=== PATIENT | female | born 1950 | race Caucasian/White ===

== ENCOUNTER → 2017-02-18 | Outpatient (CLI) | payer OTHER ==
[~2017-02-18] MED LIST: AMPH10TA2 PO; AMPH1TAB58 PO; ARIP1TAB14 PO; ASPI81TA28 PO; BUSP30TA2 PO; CEPH500C PO; CLON1TAB3 PO; CYM60 PO; DOCU100C31 PO; DULO-24 PO; INSDGIPEN SC; INSUINJ4 SQ; KLN1X PO; L-ME1CAP PO; LEVO112T4 PO; LIOT5TAB9 PO; LPT10 PO; MELO15TA4 PO; MULT-190 PO; MULT-845 PO; NVLGI/PEN SC; OMEP20CA9 PO; ONDA4TAB10 SL; OXYC-57 PO; OXYC1TAB3 PO; OXYC7.5T65 PO; PHEN-876 PO; RISP-99 PO; TRAZ50TA35 PO; WLLSR100 PO
[2017-02-18 12:34] LABS: URINE APPEARANCE CLOUDY (CLEAR); URINE BILIRUBIN NEG (NEG); URINE COLOR YELLOW; URINE NITRITE NEG (NEG); URINE SPECIFIC GRAVITY 1.017 (1.000-1.030); UROBILINOGEN NEG (NEG)
[2017-02-18 12:35] LABS: MANUAL MICROSCOPIC REQUIRED? NO; REVIEW REQ? YES
[2017-02-18 12:45] LABS: BLOOD UREA NITROGEN 12 mg/dl (7-18); BUN/CREATININE RATIO 11.1 (10-20); CALCIUM 9.1 mg/dl (8.5-10.1); CARBON DIOXIDE 30 mmol/L (21-32); CHLORIDE 109 mmol/L (98-107); GLUCOSE 62 mg/dl (70-99); POTASSIUM 4.3 mmol/L (3.5-5.1); SODIUM 144 mmol/L (136-145)
[2017-02-18 13:11] LABS: CHOLESTEROL 194 mg/dl (0-200); CHOLESTEROL/HDL RATIO 4.5; HDL CHOLESTEROL 43 mg/dl; LDL CHOLESTEROL CALCULATED 130 mg/dl; THYROID STIMULATING HORMONE 0.338 uIu/ml (0.300-4.500); TRIGLYCERIDES 105 mg/dl (0-150); VERY LOW DENSITY LIPOPROT CALC 21 mg/dl
[2017-02-18 13:23] LABS: RATIO 7.9 mcg/mg (0-30.0)
[2017-02-18 13:32] LABS: ESTIMATED AVERAGE GLUCOSE 126 mg/dl; HA1C FLAG Normal (Normal)
--- NOTE | 2017-02-24 13:28 | CODING QUERY MEDICAL NECESSITY ---
CQSUPPORTING DIAGNOSIS NEEDED A supporting diagnosis is required for the test/procedure performed on this patient in order for us to be reimbursed by the patient's insurance. Please provide a supporting diagnosis for the following test/procedure listed below next to the test name along with your signature. *If there is no additional diagnosis for this patient that would support the following test/procedure please document that below next to the test/procedure. Test(s)/Procedure(s) that require a supporting diagnosis: 02/18/17 VITAMIN D TEST Provider Signature: Date: Thank you Tiffany Islas Health Information Management Once completed, please kindly fax back to [phone] For questions please call [phone]
== END | disposition home or self-care (01) ==
LOC: C.LAB1850 10:26
PROVIDERS: ATTEND Nurse Practitioner Family
DX: N39.0 Urinary tract infection, site not specified (principal); E03.9 Hypothyroidism, unspecified; E11.65 Type 2 diabetes mellitus with hyperglycemia; E55.9 Vitamin D deficiency, unspecified

== ENCOUNTER 2017-03-23 18:20 | Emergency (ER) | payer OTHER ==
[~2017-03-23] VITALS: Ht 175.3 cm; Wt 127.9 kg
[~2017-03-23 18:20] MED LIST changes: -AMPH10TA2 PO; -AMPH1TAB58 PO; -ARIP1TAB14 PO; -ASPI81TA28 PO; -CEPH500C PO; -DULO-24 PO; -INSDGIPEN SC; -LPT10 PO; -MELO15TA4 PO; -MULT-190 PO; -ONDA4TAB10 SL; -OXYC-57 PO; -OXYC1TAB3 PO; -OXYC7.5T65 PO; -PHEN-876 PO
[2017-03-23 18:27] VITALS: TEMP 36.9; Ht 175.3 cm; Wt 127.9 kg
[2017-03-23] MEDS ORDERED: ONDANSETRON INJ 2 MG/ML 2 ML VIAL IV STA (18:44)
[2017-03-23] MEDS ORDERED: HYDROmorphone INJ 1 MG/ML SYR IV STA ×2 (18:44→20:20)
--- NOTE | 2017-03-23 18:50 | EMERGENCY ROOM VISIT NOTE ---
ED Visit Note First contact with patient: 18:31 Resident Physician Supervision Note: I was present with Dr. Arceo during the history and exam. I discussed the case with the resident and agree with the findings and plan as documented in the note. Documented By: Anthony Gilmore Problem List Medical Problems: (1) Anal cancer Status: Resolved (2) Anxiety disorder, unspecified Status: Chronic (3) Arthropathy of right knee Status: Resolved (4) Depression Status: Chronic (5) Diabetes mellitus Status: Chronic (6) Dysthymic disorder Status: Chronic (7) Hypothyroidism Status: Chronic (8) IDDM (insulin dependent diabetes mellitus) Status: Chronic (9) Kidney stones Status: Chronic (10) Obesity (BMI 35.0-39.9 without comorbidity) Status: Chronic (11) Renal mass, right Status: Resolved Surgical Problems: (1) H/O: hysterectomy Status: Resolved (2) History of colostomy Status: Resolved Current/Historical Medications Scheduled Bupropion HCl (Bupropion HCl Sr), 100 MG PO BID Buspirone Hcl (Buspirone Hcl), 30 MG PO BID Clonazepam (Clonazepam), 1 MG PO DAILY@1500 Docusate Sodium (Docusate Sodium), 100 MG PO NOON Duloxetine HCl (Duloxetine HCl), 60 MG PO BID Insulin Aspart (Novolog Flexpen), 30 UNITS SC TIDM Insulin Glargine (Lantus Solostar Pen), 30 UNITS SQ HS [id number]-Cyfrt (Deplin 15), 1 CAP PO QAM Levothyroxine Sodium (Levothyroxine Sodium), 112 MCG PO DAILY Liothyronine Sodium (Liothyronine Sodium), 5 MCG PO DAILY Multiple Vitamins W/ Minerals (Centrum Silver Adult 50+), 1 TAB PO HS Omeprazole (Prilosec), 20 MG PO DAILY Scheduled PRN Clonazepam (Klonopin), 1 MG PO DAILY PRN for Anxiety Risperidone (Risperidone), 0.5 MG PO DAILY PRN for Anxiety/Agitation Trazodone Hcl (Trazodone), 25 MG PO HS PRN for Sleep Allergies Coded Allergies: Ciprofloxacin (Verified Adverse Reaction, Unknown, ALTERED MENTAL STATE, AGITATED, 10/19/16) Vital Signs Date Time Temp Pulse Resp B/P Pulse Ox O2 Delivery O2 Flow Rate FiO2 5/16/17 18:27 36.9 85 20 121/74 96 Room Air Departure Information Referrals Pro,Moustapha Murguia M.D. (PCP) Patient Instructions [facility]
[2017-03-23] MEDS ORDERED: SODIUM CHLORIDE 0.9% 1000ML 1,000 ML IV STA (18:54)
[2017-03-23 18:57] LABS: BASO % 1.1 %; BASO ABS # 0.07 K/uL (0-0.2); COMPLETE YES; EOS % 5.2 %; HEMATOCRIT 44.3 % (37-47); IG% 0.2 %; LYMPH % 27.5 %; LYMPH ABS # 1.69 K/uL (1.2-3.4); MEAN CORPUSCULAR HEMOGLOBIN 28.2 pg (25-34); MEAN CORPUSCULAR HGB CONC 33.2 g/dl (32-36); MEAN PLATELET VOLUME 9.5 fL (7.4-10.4); MONO % 9.3 %; NEUT % 56.7 %; PLATELET COUNT 202 K/uL (130-400); RED BLOOD COUNT 5.21 M/uL (4.2-5.4); WHITE BLOOD COUNT 6.14 K/uL (4.8-10.8)
[2017-03-23] MEDS ORDERED: DULO-24 PO (18:57)
[2017-03-23] MEDS ORDERED: ASPI81TA28 PO (18:57)
[2017-03-23] MEDS ORDERED: INSDGIPEN SC (18:57)
[2017-03-23 19:07] LABS: BUN/CREATININE RATIO 14.5 (10-20); CALCIUM 9.2 mg/dl (8.5-10.1); CREATININE 0.88 mg/dl (0.60-1.20); POTASSIUM 4.4 mmol/L (3.5-5.1)
[2017-03-23 19:09] LABS: ALB/GLOB RATIO 1.2 (0.9-2)
--- NOTE | 2017-03-23 19:14 | EMERGENCY ROOM VISIT NOTE ---
History First contact with patient: 18:31 Chief Complaint: ABDOMINAL PAIN Stated Complaint: SEVERE ABD PAIN Nursing Triage Summary: Upper abd pain, severe. Usually takes steroids and Oxicodone, "I can't break the pain cycle. I'm due for more steroid shots, but not until Wednesday". reports chronic issue in abd wall. Associated vomiting and diarrhea History of Present Illness The patient is a 66 year old female who presents to the Emergency Room with complaints of epigastric abdominal pain. The pain is 9/10, sharp, nonradiating, and has been going on for the last 2 years during which time she has been following with pain management. According to the patient she has been treated with steroid injections during this time and her last injection was almost 6 months ago and she is due for a repeat injection next week. She has been treated with oxycodone for the last 2 weeks as an outpatient. She states she has had a full workup during this time and there is no etiology to her pain. This morning she tried to go without pain medication this morning because she was going out with friends, but was in significant pain and tried to take her medication but was "unable to catch up with the pain". At this time she denies fever, chest pain, vomiting, constipation, diarrhea, or burning with urination. She also states that the pain is causing shortness of breath. Review of Systems See HPI for pertinent positives and negatives. A total of ten systems were reviewed and were otherwise negative. Past Medical/Surgical History Medical Problems: (1) Anal cancer (2) Anxiety disorder, unspecified (3) Arthropathy of right knee (4) Constipation (5) Depression (6) Diabetes mellitus (7) Dysthymic disorder (8) Hypothyroidism (9) IDDM (insulin dependent diabetes mellitus) (10) Kidney stones (11) Obesity (BMI 35.0-39.9 without comorbidity) (12) Pain (13) Renal mass, left (14) Renal mass, right Surgical Problems: (1) H/O: hysterectomy (2) History of colostomy Family History No pertinent family history Social History Smoking Status: Former Smoker Alcohol Use: occasionally Drug Use: none Marital Status: Housing Status: lives with significant other Occupation Status: disabled Current/Historical Medications Scheduled Aspirin (Aspirin Ec), 81 MG PO QAM Bupropion HCl (Bupropion HCl Sr), 100 MG PO BID Buspirone Hcl (Buspirone Hcl), 30 MG PO BID Clonazepam (Clonazepam), 1 MG PO DAILY@1500 Docusate Sodium (Docusate Sodium), 100 MG PO NOON Duloxetine HCl (Cymbalta), 20 MG PO TID Insulin Aspart (Novolog Flexpen), 30-50 UNITS SC TIDM Insulin Glargine (Lantus Solostar), 6 UNITS SC HS Levothyroxine Sodium (Levothyroxine Sodium), 112 MCG PO DAILY Liothyronine Sodium (Liothyronine Sodium), 5 MCG PO DAILY Multiple Vitamins W/ Minerals (Centrum Silver Adult 50+), 1 TAB PO HS Omeprazole (Prilosec), 20 MG PO DAILY Scheduled PRN Clonazepam (Klonopin), 1 MG PO DAILY PRN for Anxiety Risperidone (Risperidone), 0.5 MG PO DAILY PRN for Anxiety/Agitation Trazodone Hcl (Trazodone), 25 MG PO HS PRN for Sleep Allergies Coded Allergies: Ciprofloxacin (Verified Adverse Reaction, Unknown, ALTERED MENTAL STATE, AGITATED, 10/19/16) Physical Exam Vital Signs Date Time Temp Pulse Resp B/P Pulse Ox O2 Delivery O2 Flow Rate FiO2 03/23/17 18:27 36.9 85 20 121/74 96 Room Air Physical Exam GENERAL: Awake, alert, well-appearing, in no distress HENT: Normocephalic, atraumatic. Oropharynx unremarkable. EYES: Normal conjunctiva. Sclera non-icteric. NECK: Supple. Trachea midline. RESPIRATORY: Clear to auscultation. Good inspiratory effort CARDIAC: Regular rate, normal rhythm. Extremities warm and well perfused. Pulses equal. ABDOMEN: Soft, non-distended. No rebound or guarding. No masses. Mild epigastric tenderness RECTAL: Deferred. MUSCULOSKELETAL: Chest examination reveals no tenderness. The back is symmetrical on inspection without obvious abnormality. There is no CVA tenderness to palpation. No joint edema. LOWER EXTREMITIES: Calves are equal size bilaterally and non-tender. No edema. No discoloration. NEURO: Normal sensorium. No sensory or motor deficits noted. SKIN: No rash or jaundice noted. Medical Decision & Procedures Laboratory Results 03/23/17 18:39 Red Blood Count 5.21, Mean Corpuscular Volume 85.0, Mean Corpuscular Hemoglobin 28.2, Mean Corpuscular Hemoglobin Concent 33.2, Mean Platelet Volume 9.5, Neutrophils (%) (Auto) 56.7, Lymphocytes (%) (Auto) 27.5, Monocytes (%) (Auto) 9.3, Eosinophils (%) (Auto) 5.2, Basophils (%) (Auto) 1.1, Neutrophils # (Auto) 3.48, Lymphocytes # (Auto) 1.69, Monocytes # (Auto) 0.57, Eosinophils # (Auto) 0.32, Basophils # (Auto) 0.07 03/23/17 18:39 Test 03/23/17 18:39 03/23/17 19:57 White Blood Count 6.14 K/uL (4.8-10.8) Red Blood Count 5.21 M/uL (4.2-5.4) Hemoglobin 14.7 g/dL (12.0-16.0) Hematocrit 44.3 % (37-47) Mean Corpuscular Volume 85.0 fL (80-100) Mean Corpuscular Hemoglobin 28.2 pg (25-34) Mean Corpuscular Hemoglobin Concent 33.2 g/dl (32-36) Platelet Count 202 K/uL (130-400) Mean Platelet Volume 9.5 fL (7.4-10.4) Neutrophils (%) (Auto) 56.7 % Lymphocytes (%) (Auto) 27.5 % Monocytes (%) (Auto) 9.3 % Eosinophils (%) (Auto) 5.2 % Basophils (%) (Auto) 1.1 % Neutrophils # (Auto) 3.48 K/uL (1.4-6.5) Lymphocytes # (Auto) 1.69 K/uL (1.2-3.4) Monocytes # (Auto) 0.57 K/uL (0.11-0.59) Eosinophils # (Auto) 0.32 K/uL (0-0.5) Basophils # (Auto) 0.07 K/uL (0-0.2) RDW Standard Deviation 42.6 fL (36.4-46.3) RDW Coefficient of Variation 14.0 % (11.5-14.5) Immature Granulocyte % (Auto) 0.2 % Immature Granulocyte # (Auto) 0.01 K/uL (0.00-0.02) Anion Gap 5.0 mmol/L (3-11) Est Creatinine Clear Calc Drug Dose 91.5 ml/min Estimated GFR () 79.9 Estimated GFR (Non- 68.9 BUN/Creatinine Ratio 14.5 (10-20) Calcium Level 9.2 mg/dl (8.5-10.1) Total Bilirubin 0.4 mg/dl (0.2-1) Aspartate Amino Transf (AST/SGOT) 38 U/L (15-37) Alanine Aminotransferase (ALT/SGPT) 61 U/L (12-78) Alkaline Phosphatase 92 U/L (45-117) Total Protein 7.1 gm/dl (6.4-8.2) Albumin 3.9 gm/dl (3.4-5.0) Globulin 3.2 gm/dl (2.5-4.0) Albumin/Globulin Ratio 1.2 (0.9-2) Lipase 125 U/L (73-393) Urine Color YELLOW Urine Appearance CLEAR (CLEAR) Urine pH 6.0 (4.5-7.5) Urine Specific [place] 1.017 (1.000-1.030) Urine Protein NEG (NEG) Urine Glucose (UA) NEG (NEG) Urine Ketones NEG (NEG) Urine Occult Blood 1+ (NEG) Urine Nitrite NEG (NEG) Urine Bilirubin NEG (NEG) Urine Urobilinogen NEG (NEG) Urine Leukocyte Esterase SMALL (NEG) Urine WBC (Auto) 5-10 /hpf (0-5) Urine RBC (Auto) 5-10 /hpf (0-4) Urine Hyaline Casts (Auto) 1-5 /lpf (0-5) Urine Epithelial Cells (Auto) >30 /lpf (0-5) Urine Bacteria (Auto) NEG (NEG) Medications Administered Medications (Trade) Dose Ordered Sig/Chong Route Start Time Stop Time Status Last Admin Dose Admin Ondansetron HCl (Zofran Inj) 4 mg NOW STAT IV 03/23/17 18:44 03/23/17 18:49 DC 03/23/17 18:58 4 MG Hydromorphone HCl 1 mg 1 mg NOW STAT IV 03/23/17 18:44 17 18:49 DC 03/23/17 18:58 1 MG Sodium Chloride (Nss 1000ml) 1,000 ml @ 999 mls/hr Q1H1M STAT IV 03/23/17 18:54 03/23/17 19:54 DC 03/23/17 18:54 999 MLS/HR Magnesium Citrate (Citrate Of Magnesia Soln) 296 ml ONE PRN PO 03/23/17 20:30 04/22/17 20:29 03/23/17 20:31 296 ML Hydromorphone HCl 1 mg 1 mg NOW STAT IV 03/23/17 20:20 03/23/17 20:24 DC 03/23/17 20:30 1 MG Promethazine HCl/ Sodium Chloride (Phenergan Inj/ Nss 50ml) 51 ml @ 204 mls/hr NOW STAT IV 03/23/17 20:20 03/23/17 20:34 DC 03/23/17 20:31 204 MLS/HR Medical Decision Patient is a 66 year old female with chronic epigastric pain that is unable to be controlled with her current home medications Etiologies such as appendicitis, diverticulitis, obstruction, inflammatory bowel disease, renal colic, PUD, biliary pathology, pancreatitis, mesenteric ischemia, aortic pathology, infections, genitourinary, UTI, perforated viscus, as well as others were entertained. Studies: - Abdominal Series - CBC - CMP - Lipase Medications: - Zofran 4mg IV - Dilaudid 1mg IV - Lab results show no acute abnormalities - Abdominal X-Ray shows no acute pathology but a moderate amount of stool - Patient still complaining of pain so given 1mg IV Dilaudid + 25mg IV Phenergan - After additional dose of pain medication patient states her pain is improved - Patient given magnesium citrate on discharge with instruction for taking it at home Impression Primary Impression: Abdominal pain Additional Impressions: Chronic pain disorder Constipation due to opioid therapy Departure Information Dispostion Home / Self-Care Condition GOOD Referrals Pro,Moustapha Murguia M.D. (PCP) Patient Instructions [facility] Problem Qualifiers Primary Impression: Abdominal pain Abdominal location: epigastric Qualified Codes: R10.13 - Epigastric pain
--- NOTE | 2017-03-23 19:49 | DIAGNOSTIC IMAGING REPORT ---
ABDOMEN 2VIEW W/PA CHEST RTN CLINICAL HISTORY: Upper abdominal pain. COMPARISON STUDY: Chest x-ray dated April 09, 2016, abdominal series dated 03/28/2016 FINDINGS: The erect chest reveals no free air. There is no focal pulmonary consolidation. Erect and supine views the abdomen reveal moderate stool within the colon. There are no transition zones indicate bowel obstruction. There is a 9 mm calcification within the left midabdomen suspicious for a left renal calculus. IMPRESSION: 1. No evidence of bowel obstruction. No evidence of free air 2. Left-sided nephrolithiasis 3. Moderate amount of stool within the colon Electronically signed by: Joni Briones M.D. 03/23/2017 7:48 PM Dictated Date/Time: 03/23/2017 7:46 PM
[2017-03-23] MEDS ORDERED: PROMETHAZINE HCL INJ 25 MG in SODIUM CHLORIDE 0.9% 50ML 50 ML IV STA (20:20)
[2017-03-23 20:22] LABS: URINE APPEARANCE CLEAR (CLEAR); URINE BILIRUBIN NEG (NEG); URINE COLOR YELLOW; URINE EPITHELIAL CELL AUTO >30 /lpf (0-5); URINE NITRITE NEG (NEG); URINE SPECIFIC GRAVITY 1.017 (1.000-1.030); UROBILINOGEN NEG (NEG)
[2017-03-23 20:28] LABS: MANUAL MICROSCOPIC REQUIRED? NO; REVIEW REQ? NO
[2017-03-23] MEDS ORDERED: MAGNESIUM CITRATE 296 ML/BTL PO PRN (20:30)
[2017-03-23 21:45] VITALS: BP 118/69; PULSE 80; O2SAT 95
[2017-10-04] MEDS ORDERED: OXYC-57 PO (08:44)
[2017-10-05] MEDS ORDERED: CEPH500C PO (10:48)
[2017-10-05] MEDS ORDERED: PHEN-876 PO (10:48)
[2017-10-05] MEDS ORDERED: OXYC7.5T65 PO (10:48)
== END 2017-03-23 21:46 | disposition home or self-care (01) ==
LOC: C.EDB 18:21 → C.EDA 21:46
DX: R10.9 Unspecified abdominal pain (principal); G89.29 Other chronic pain; K59.03 Drug induced constipation; E11.9 Type 2 diabetes mellitus without complications; E03.9 Hypothyroidism, unspecified; F41.9 Anxiety disorder, unspecified; F32.9 Major depressive disorder, single episode, unspecified; M12.861 Other specific arthropathies, not elsewhere classified, right knee; Z85.048 Personal history of other malignant neoplasm of rectum, rectosigmoid junction, and anus; Z90.710 Acquired absence of both cervix and uterus; Z93.3 Colostomy status; Z87.891 Personal history of nicotine dependence; Z79.4 Long term (current) use of insulin; Z79.82 Long term (current) use of aspirin; Z79.899 Other long term (current) drug therapy; Z88.2 Allergy status to sulfonamides

== ENCOUNTER → 2017-05-28 | Outpatient (CLI) | payer OTHER ==
[~2017-05-28] MED LIST changes: +ASPI81TA28 PO; -CYM60 PO; +DULO-24 PO; +INSDGIPEN SC; -INSUINJ4 SQ; -L-ME1CAP PO
--- NOTE | 2017-05-28 13:30 | DIAGNOSTIC IMAGING REPORT ---
LEFT HIP UNILATERAL 2 VIEWS HISTORY: 67 years-old Female M25.552 acute left hip pain without known injury. COMPARISON: CT abdomen and pelvis 12/16/2015 TECHNIQUE: 2 views of the left hip FINDINGS: Moderate degenerative changes of the left femoral acetabular joint are noted. There is a subcentimeter bone island of the left femoral head medially. There is no acute fracture or dislocation. The imaged left hemipelvis is intact. There is no radiopaque foreign body. IMPRESSION: 1. No acute fracture or dislocation. 2. 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 The above report was generated using voice recognition software. It may contain grammatical, syntax or spelling errors. Electronically signed by: Sal Fernandez M.D. 05/28/2017 1:29 PM Dictated Date/Time: 05/28/2017 1:26 PM
== END | disposition home or self-care (01) ==
LOC: C.RAD1850 12:07
PROVIDERS: ATTEND Physician Assistant
DX: M25.552 Pain in left hip (principal); M17.32 Unilateral post-traumatic osteoarthritis, left knee

== ENCOUNTER → 2017-08-20 | Outpatient (CLI) | payer OTHER ==
[2017-08-20 12:13] LABS: BASO % 0.8 %; BASO ABS # 0.04 K/uL (0-0.2); COMPLETE YES; EOS % 5.1 %; HEMATOCRIT 43.3 % (37-47); IG% 0.2 %; LYMPH % 21.2 %; LYMPH ABS # 1.13 K/uL (1.2-3.4); MEAN CELL VOLUME 86.4 fL (80-100); MEAN CORPUSCULAR HEMOGLOBIN 27.9 pg (25-34); MEAN CORPUSCULAR HGB CONC 32.3 g/dl (32-36); MEAN PLATELET VOLUME 9.8 fL (7.4-10.4); MONO % 6.6 %; NEUT % 66.1 %; PLATELET COUNT 218 K/uL (130-400); RED BLOOD COUNT 5.01 M/uL (4.2-5.4); WHITE BLOOD COUNT 5.32 K/uL (4.8-10.8)
[2017-08-20 12:29] LABS: ESTIMATED AVERAGE GLUCOSE 146 mg/dl; HA1C FLAG Normal (Normal)
[2017-08-20 13:39] LABS: BLOOD UREA NITROGEN 12 mg/dl (7-18); BUN/CREATININE RATIO 13.4 (10-20); CALCIUM 9.1 mg/dl (8.5-10.1); CARBON DIOXIDE 26 mmol/L (21-32); CHLORIDE 106 mmol/L (98-107); CHOLESTEROL 179 mg/dl (0-200); CREATININE 0.91 mg/dl (0.60-1.20); GLUCOSE 162 mg/dl (70-99); POTASSIUM 4.3 mmol/L (3.5-5.1); SODIUM 139 mmol/L (136-145); TRIGLYCERIDES 155 mg/dl (0-150); VERY LOW DENSITY LIPOPROT CALC 31 mg/dl
[2017-08-20 13:49] LABS: FERRITIN 41.9 ng/ml (8.0-388.0)
[2017-08-20 13:50] LABS: CHOLESTEROL/HDL RATIO 5.3; HDL CHOLESTEROL 34 mg/dl; LDL CHOLESTEROL CALCULATED 114 mg/dl
== END | disposition home or self-care (01) ==
LOC: C.LAB1850 11:02
PROVIDERS: ATTEND Internal Medicine
DX: E55.9 Vitamin D deficiency, unspecified (principal); E11.65 Type 2 diabetes mellitus with hyperglycemia; E03.9 Hypothyroidism, unspecified; D50.9 Iron deficiency anemia, unspecified

== ENCOUNTER → 2017-08-25 | Outpatient (CLI) | payer OTHER ==
--- NOTE | 2017-08-26 06:02 | PAP/PSG TECHNICIAN REPORT ---
[facility] Applications Scientist Polysomnogram Report Study name: None Report date: 08/26/2017 Study date: 08/25/2017 Referring Physician: DR. CLAUDIA ANTON Name: NYLA LUNSFORD Interpreting Physician: Eamon Viramontes M.D. Date of : 1950 Applications Scientist: TANYA Harman. Sex: Female Age: 67 Study Type: PSG PAP Weight: 295 lbs Height: 67 years, Height 5' 8" BMI: 44.85 Medications: RISPERDAL 0.25 MG, OMEPRAZOLE 20 MG, CYMBALTA 60 MG, DOCUSATE SODIUM 100 MG, BUPROPION 100 MG, BUSPIRONE 30 MG, CLONAZEPAM 1 MG, DEPLIN, KLONOPIN 1 MG, ATORVASTATIN 10 MG, LANTUS SOLOSTAR, NOVOLOG FLEXPEN, MELOXICAM 15 MG, LEVOTHYROXINE 112 MCG, LIOTHYRONINE 5 MCG, ARIPIPRAZOLE 5 MG, ASPIRIN 81 MG, CENTRUM SILVER, TRAZODONE 50 MG, TYLENOL Patient History 67. yr-old female here for a CPAP update study. She is currently on a pressure of 13 CMH2O. She wears CPAP every night but is having some leaking issues from her mask that wakes her often. She wears an AirFit F10 full face mask size small. She is back to assess her pressure settings and mask fit. Her [place] scale is 12. The test was started on room air and 4 CMH2O. ETCO2 testing was not utilized during this study. Room 1 Parameters Monitored NPSG: E1-M2, E2-M1, Fp1-M2, Fp2-M1, F3-M2, F4-M2, F4-M1, C3-M2, C4-M2, C4-M1, O1-M2, O2-M2, O2-M1, T3-M2, T4-M1, P3-M2, P4-M1, CHIN1, CHIN2, HR, EKG, Legs, PFLOW, SNOR, FLOW, CFLOW, Tidal Volume, THOR, ABDO, SpO2, PLTH, CPRESS, ETCO2 Wave, ETCO2, pH Sleep Architecture Sleep Stages Time at Lights Off 9:29:28 PM STAGES Time (min.) TST (%) Time at Lights On 5:30:28 AM Wake 13.5 -- Total Recording Time (TRT) 481.00 min. N1 14.5 3 Total Sleep Period (TSP) 475.0 min. N2 382.5 82 Total Sleep Time (TST) 467.5min. N3 4.5 1 Awake Time 13.5 min. REM 66.0 14 Wake after Sleep Onset 7.5 min. Sleep Efficiency (SE) 97 % Sleep Onset Latency (LUCIA) 6.0 min. Number of Stage 1 Shifts None Awakenings 6 Stage Changes 64 Number of REM periods 2 REM 66.0 14 REM Latency 388.5 min. NREM 401.5 86 Body Position Analysis Supine Right Left Side Prone Vertical Total Sleep Time (min.) 322.7 0.0 146.5 146.47 0.0 0.0 Total Sleep Time (%) 69% 0% 31% 31 0% N/A% Total Sleep Time REM (min.) 66.0 0.0 0.0 None 0.0 0.0 Total Sleep Time NREM (min.) 255.0 0.0 146.5 None 0.0 0.0 Intermittent Wake (min.) 1.6 5.4 6.5 None 0.0 0.0 Total Sleep Period (%) 68% None None None None None Arousals Myoclonus (PLM) * Events Count Index Events Count Index Spontaneous 39 5 Events Awake (PLMW) 12 53.3 Respiratory 11 1.5 Events Asleep w/ Arousal (PLMA) 8 1.0 PLM 8 1 Events Asleep w/o Arousal (PLMS) 98 12.6 Snoring 12 2 Total Asleep 106 13.6 Total 69 9 Total 118 15 Respiratory Analysis * CA OA MA CH H RERA Total Count 8 1 0 0 18 7 27 Index 1.0 0.1 0.0 0 2.3 1 4.4 Mean Duration 12.4 14.2 0.0 0.00 17.8 16.7 16.2 Longest Duration 15.7 14.2 0.0 0.00 0.0 19.2 31.6 Respiratory Event Summary Total Supine ~Supine Right Left Prone REM NREM Apneas Count 9 5 4 N/A 4 N/A 0 9 Index 1.2 1 2 N/A 1.6 N/A 0 1 Hypopneas (4% Desat) Count 18 16 2 N/A 2 N/A 4 14 Index 2.3 3.0 1 N/A 0.8 N/A 3.6 2.1 Apneas & All Hypopneas Count 27 21 6 N/A 6 N/A 4 23 Index 3.5 4 2 N/A 2 N/A 3.6 3.4 Respiratory Events (Stain Maker+All Hyp+RERA) Count 27 26 8 N/A 8 N/A 4 23 Index 4.4 5 3 N/A 3.3 N/A 3.6 4.5 Respiratory Related Arousal Count 11 26 3 N/A 3 N/A 0 12 Index 1.5 2 1 N/A 1 N/A 0 2 Snoring Analysis Supine Right Left Prone REM NREM Total Snore duration 31.2 min Snores count 1,140 N/A 304 N/A 167 1,277 1,444 Snore mean duration 1.3 Sec Snores index 213 N/A 125 N/A 151.8 190.8 185.3 TST with snoring (%) 6.7% Desaturation Event Summary: Minimum %SpO2 Event Count Mean/Min/Max Duration(sec.) Desaturation Index % Time In Bed > 90 40 13.2 / 4.5 / 38.3 11.0 45.4 86 - 90 20 14.4 / 5.8 / 55.5 4.6 54.4 81 - 85 0 N/A 0.0 0.2 76 - 80 0 N/A 0.0 0.1 71 - 75 0 N/A 0.0 0.0 66 - 70 0 N/A 0.0 0.0 61 - 65 0 N/A 0.0 0.0 56 - 60 0 N/A 0.0 0.0 51 - 55 0 N/A 0.0 0.0 < 50 0 N/A 0.0 0.0 Total REM NREM Awake <50% 0.0 min. 0.0 min. 0.0 min. 0.0 min. 51 - 60% 0.0 min. 0.0 min. 0.0 min. 0.0 min. 61 - 70% 0.0 min. 0.0 min. 0.0 min. 0.0 min. 71 - 80% 0.2 min. 0.2 min. 0.0 min. 0.0 min. 81 - 90% 262.0 min. 63.5 min. 192.3 min. 6.2 min. 91 - 100% 217.9 min. 2.2 min. 209.0 min. 6.7 min. Average 90 89 91 91 Minimum SpO2 76 76 85 87 Desaturation Event Index 5.9 8.2 5.2 17.8 # Desat. Events below 89% 27 9 17 1 Time(%) with Saturation below 89% 7.6 5.5 1.9 0.2 Time(min.) with Saturation below 89% 36.3 26.2 9.1 1.0 Time (mins) REM (mins) NREM (mins) % of TST SpO2 Below 90% 43 9 N34 23.5 SpO2 Below 88% 6 0 0 2 Heart Rate Analysis Min (bpm) Max (bpm) Average (bpm) Awake 71 100 84 NREM 69 96 82 REM 73 91 81 Overall 69 96 82 Supplemental O2 Values Minimum O2 level: None Value Start Time End Time Applications Scientist Comments Ms. Lunsford slept in the right, left, and supine positions. No cardiac arrhythmias were noted. PLMs were noted. No bruxism noted. CPAP was initiated at +4 CMH2O and up-titrated to a level of +10 CMH2O, Cflex 2. An AirFit F10 full face mask size small from [employer] was used during titration She awoke to use the restroom one time during the night. Ms. Lunsford stated that she slept better than she thought she would have. The final report will be interpreted and signed by a sleep physician. The completed physician report will then be placed in the patient medical record. Therapy Event: Therapy (cm H20) 4 5 6 8 9 10 Total Time at Pressure (min.) 28.9 26.5 96.4 100.5 171.8 56.9 TST at Pressure (min.) 22.9 26.5 96.4 99.5 165.3 56.9 # Periods 1 1 1 1 1 1 Sleep Onset (min.) 6.0 0.0 0.0 0.0 0.0 0.0 REM Onset (min.) N/A N/A N/A N/A 142.2 0.0 Sleep Efficiency % 79 100 100 99 96 100 Wakefulness (%) 20.8 0.0 0.0 1.0 3.8 0.0 Wakefulness (min.) 6.0 0.0 0.0 1.0 6.5 0.0 NREM 1 (%) 12.1 0.0 1.0 1.5 4.9 0.0 NREM 1 (min.) 3.5 0.0 1.0 1.5 8.5 0.0 NREM 2 (%) 67.1 98.1 96.9 95.5 74.3 35.1 NREM 2 (min.) 19.4 26.0 93.4 96.0 127.7 20.0 NREM 3 (%) 0.0 1.9 2.1 2.0 0.0 0.0 NREM 3 (min.) 0.0 0.5 2.0 2.0 0.0 0.0 REM (%) 0.0 0.0 0.0 0.0 16.9 64.9 REM (min.) 0.0 0.0 0.0 0.0 29.1 36.9 # Arousals 5 1 19 15 28 1 Arousal Index 13.1 2.3 11.8 9.0 10.2 1.1 # Snore 35 82 448 323 435 121 Snore Index 91.8 185.4 278.9 194.8 157.9 127.6 AHI 2.6 4.5 5.6 4.8 2.2 1.1 AHI Supine 2.6 4.5 4.7 5.3 4.0 1.1 AHI Non-Supine N/A N/A 7.5 0.0 1.1 N/A NREM AHI 2.6 4.5 5.6 4.8 0.9 3.0 REM AHI N/A N/A N/A N/A 8.3 0.0 RDI 2.6 6.8 8.1 6.0 2.2 1.1 # Obstructive 0 0 0 1 0 0 # Central Ap 0 1 4 1 1 1 # Mixed 0 0 0 0 0 0 # Hypopneas 1 1 5 6 5 0 RERAS 0 1 4 2 0 0 Total Respiratory Events 1 3 13 10 6 1 Time Below SpO2 89.00% (min.) 2.0 0.7 2.4 2.2 16.5 11.5 Mean NREM SpO2 (%) 90 90 91 91 91 90 Mean REM SpO2 (%) N/A N/A N/A N/A 88 89 Mean Sleep SpO2 (%) 90 90 91 91 90 89 Min NREM SpO2 (%) 88 87 88 85 86 87 Min REM SpO2 (%) N/A N/A N/A N/A 76 87 Position Supine (min.) 22.9 26.5 64.3 91.0 59.4 56.9 Position Non-supine (min.) 0.0 0.0 32.1 8.5 105.9 0.0 LM Index Sleep 21.0 15.8 15.6 12.7 14.5 5.3 LM Index NREM 21.0 15.8 15.6 12.7 14.1 0.0 LM Index REM N/A N/A N/A N/A 16.5 8.1 Mean Heart Rate (bpm) 88 86 84 82 81 82 Min Heart Rate (bpm) 80 76 69 70 70 73 CPAP REPORT Therapy Detail Time / Page # Comment CPAP 4 cm H2O Full Face Mask Flex Pressure Relief Humidifier on 9:27:41 PM / pg. 156 CPAP 5 cm H2O Full Face Mask Flex Pressure Relief Humidifier on 9:58:21 PM / pg. 217 INCREASED FOR SOME SNORING CPAP 6 cm H2O Full Face Mask Flex Pressure Relief Humidifier on 10:24:53 PM / pg. 270 INCREASED FOR AUDIBLE SNORING CPAP 8 cm H2O Full Face Mask Flex Pressure Relief Humidifier on 12:01:15 AM / pg. 463 INCREASED FOR RERAS AND SOME HYPOPNEAS AND SNORE AROUSALS CPAP 9 cm H2O Full Face Mask Flex Pressure Relief Humidifier on 1:41:44 AM / pg. 664 INCREASED FOR RERAS AND HYPOPNEAS CPAP 10 cm H2O Full Face Mask Flex Pressure Relief Humidifier on 4:33:33 AM / pg. 1008 INCREASED FOR HYPOPNEAS IN REM
--- NOTE | 2017-08-27 15:01 | POLYSOMNOGRAPH REPORT ---
CLINICAL DATA: A 67-year-old female with BMI of 48.[address] Moustapha Dey for a CPAP study. She is currently wearing 13 cm water pressure. She uses it every night but has issues with mask leakage. She wears AirFit F10 full facemask size small. She is back to assess her pressure settings and mask fit. Her Leona sleepiness score is 12/24. SLEEP ARCHITECTURE: Total sleep period was 475 minutes. Total sleep time was 467.5 minutes, divided between 401.5 minutes of non-REM sleep and 66 minutes of REM sleep. Sleep onset latency was 6 minutes. REM latency was delayed at 388.5 minutes. Sleep efficiency was 97%. Wake after sleep onset was 7.5 minutes. Sleep consisted of stage N1 3%, stage N2 82%, stage N3 1%, and REM 14%. AROUSAL DATA: A 69 arousals were recorded for an index of 9 per hour. PLM DATA: A 106 limb movements during sleep were noted for an index of 13.6 per hour with an arousal index of 1 per hour. RESPIRATORY DATA: The AHI was 3.5. There were 8 central, 1 obstructive apneic episode. The longest duration of apnea was 15.7 seconds. There were 18 hypopneic episodes. The mean duration of hypopnea was 17.8 seconds. OXIMETRY DATA: Nocturnal hypoxemia was seen. Oxygen kristi was 76% during REM. The mean saturation was 90%. Time below 88% was 6 minutes. EKG: Heart rates ranged from 69-96 beats per minute. No arrhythmias were noted. VP'S COMMENTS AND TREATMENT SUMMARY: The patient slept in the right, left, and supine positions. She used an AirFit F10 full facemask size small from [employer]. She was titrated up to 10 cm water pressure, C-Flex setting #2. At her final pressure setting, patient slept for 57 minutes with an AHI of 1. IMPRESSION: Obstructive sleep apnea corrected with CPAP 10 cm water C-flex setting #2 with the above noted interface. RECOMMENDATIONS: The patient's CPAP can be lowered to 10 cm water pressure at C-Flex setting #2.
== END | disposition home or self-care (01) ==
LOC: C.NEUR 20:00
PROVIDERS: ATTEND Internal Medicine
DX: G47.33 Obstructive sleep apnea (adult) (pediatric) (principal); R06.83 Snoring

== ENCOUNTER → 2017-09-21 | Outpatient (CLI) | payer OTHER ==
[~2017-09-21] MED LIST changes: +ARIP1TAB14 PO; +LPT10 PO; +MELO15TA4 PO; +MULT-190 PO; +OXYC-57 PO
== END | disposition home or self-care (01) ==
LOC: C.LABSPEC 17:02
PROVIDERS: ATTEND Podiatrist Foot & Ankle Surgery
DX: L60.0 Ingrowing nail (principal)

== ENCOUNTER 2017-09-24 12:17 | Emergency (ER) | payer OTHER ==
[~2017-09-24] VITALS: Ht 174 cm; Wt 133.6 kg
[~2017-09-24 12:17] MED LIST changes: -ARIP1TAB14 PO; -LPT10 PO; -MELO15TA4 PO; -MULT-190 PO; -OXYC-57 PO
[2017-09-24 12:21] VITALS: Ht 174 cm; Wt 133.6 kg
[2017-09-24] MEDS ORDERED: ONDANSETRON INJ 2 MG/ML 2 ML VIAL ONE (12:39)
[2017-09-24] MEDS ORDERED: ONDANSETRON INJ 2 MG/ML 2 ML VIAL IV STA (12:45)
[2017-09-24] MEDS ORDERED: MoRPHine SULFATE 10 MG/ML CARP/VIAL IV STA ×2 (12:45→13:57)
[2017-09-24] MEDS ORDERED: SODIUM CHLORIDE 0.9% 1000ML 1,000 ML IV STA (12:45)
[2017-09-24] MEDS ORDERED: MoRPHine SULFATE 10 MG/ML CARP/VIAL ONE (12:46)
[2017-09-24] MEDS ORDERED: MELO15TA4 PO (12:57)
[2017-09-24] MEDS ORDERED: LPT10 PO (12:57)
[2017-09-24] MEDS ORDERED: ARIP1TAB14 PO (12:57)
[2017-09-24] MEDS ORDERED: MULT-190 PO (12:58)
[2017-09-24 13:20] LABS: BASO % 0.8 %; BASO ABS # 0.05 K/uL (0-0.2); COMPLETE YES; EOS % 4.7 %; IG% 0.3 %; LYMPH % 21.2 %; LYMPH ABS # 1.41 K/uL (1.2-3.4); MEAN CELL VOLUME 86.7 fL (80-100); MEAN CORPUSCULAR HEMOGLOBIN 28.3 pg (25-34); MEAN CORPUSCULAR HGB CONC 32.7 g/dl (32-36); MEAN PLATELET VOLUME 9.6 fL (7.4-10.4); MONO % 9.6 %; NEUT % 63.4 %; PLATELET COUNT 224 K/uL (130-400); RED BLOOD COUNT 4.73 M/uL (4.2-5.4); WHITE BLOOD COUNT 6.64 K/uL (4.8-10.8)
--- NOTE | 2017-09-24 13:28 | DIAGNOSTIC IMAGING REPORT ---
ABD/PELVIS WITHOUT FOR STONE HISTORY: 67 years-old Female EVALUATE FLANK PAIN/HEMATURIA acute left-sided flank pain COMPARISON: CT 12/26/2015 and 02/24/2010 TECHNIQUE: Multiple axial CT images of the abdomen and pelvis were obtained without contrast. A dose lowering technique was used consistent with the principals of SAL. FINDINGS: Mild subsegmental patchy bibasilar groundglass opacities suggest atelectasis. No pneumoperitoneum or pneumatosis. Imaged inferior cardiac chambers are unremarkable. Hepatomegaly with hepatic steatosis. The spleen, gallbladder, pancreas and adrenal glands are unremarkable. 4 mm nonobstructing calculus of the inferior pole right kidney is noted. No right-sided ureteral calculi or obstructive uropathy. There are several calculi in the inferior pole left kidney, largest of which measures up to 1.6 cm in length. Cortical scarring of the superior pole left kidney is noted with areas of macroscopic fat in her purse between areas of linear suture material with decreased soft tissue stranding within this distribution compared to prior study suggesting expected post operative changes. No suspicious mass lesions seen within the left kidney on this noncontrast study. No left-sided ureteral calculi or obstruction uropathy. Urinary bladder is unremarkable. Lobular contour of the uterus is again seen suggesting fibroids. Nonspecific cystic structure within the region of the right adnexum measures 9 mm which has not significantly changed from comparison study. Aorta is normal in course and caliber. No bulky adenopathy. Scattered nonspecific mildly prominent lymph nodes are seen within the right lower quadrant mesentery measuring up to 6 mm in short axis. There is no bowel obstruction or focal bowel wall thickening. Scattered colonic diverticulosis without diverticulitis. The appendix is not definitively seen. No secondary signs of acute appendicitis. Soft tissues are unremarkable. Probable bone islands of the left femur. IMPRESSION: 1. Bilateral nephrolithiasis without ureteral calculi or obstructive uropathy. 2. Postoperative changes of the superior pole left kidney. 3. Appendix not definitively visualized. No secondary signs to suggest acute appendicitis. 4. Hepatomegaly with hepatic steatosis. 5. Probable fibroid uterus. 6. Additional findings as above. The above report was generated using voice recognition software. It may contain grammatical, syntax or spelling errors. Electronically signed by: Sal Fernandez M.D. 09/24/2017 1:27 PM Dictated Date/Time: 09/24/2017 1:16 PM
[2017-09-24 13:49] LABS: ALT/SGPT 60 U/L (12-78); BLOOD UREA NITROGEN 19 mg/dl (7-18); CALCIUM 9.2 mg/dl (8.5-10.1); CARBON DIOXIDE 23 mmol/L (21-32); CHLORIDE 107 mmol/L (98-107); CREATININE 1.02 mg/dl (0.60-1.20); GLUCOSE 87 mg/dl (70-99); SODIUM 138 mmol/L (136-145)
[2017-09-24 13:50] LABS: ALKALINE PHOSPHATASE 117 U/L (45-117)
[2017-09-24 14:16] LABS: MANUAL MICROSCOPIC REQUIRED? NO; REVIEW REQ? NO; URINE APPEARANCE CLEAR (CLEAR); URINE BILIRUBIN NEG (NEG); URINE COLOR YELLOW; URINE NITRITE NEG (NEG); URINE SPECIFIC GRAVITY 1.008 (1.000-1.030); UROBILINOGEN NEG (NEG)
[2017-09-24] MEDS ORDERED: OXYC-57 PO (14:40)
[2017-09-24 15:01] VITALS: BP 124/69; PULSE 81; TEMP 36.3; O2SAT 91
--- NOTE | 2017-09-24 20:24 | EMERGENCY ROOM VISIT NOTE ---
ED Visit Note First contact with patient: 12:35 Chief Complaint: I'm having left flank pain. History of Present Illness: Ms. Lunsford is a 67-year-old white female who ambulates into the ED accompanied by male friend complaining of left flank pain. Historically patient reports she has a history of nephrolithiasis. Previously she needed surgical intervention in the form of lips atrip see an basket removal. Patient reports an acute onset of left flank pain that started approximately 3- 4 hours ago. Since that time her pain has been constant but slightly waxing and waning intensity. She describes her pain as a cramping and sharp sensation. She rates her discomfort 8/10. She reports she has minimal radiation of her pain from the flank around the abdomen. She has not identified any aggravating or alleviating factors related to the pain. She has not taken any medications for pain prior to arrival at the hospital. Associated with her pain she reports she's been nauseated but has not vomited. Additionally she reports this feels exactly like her previous kidney stones. She denies fevers, chills, sweats, skin eruptions, skin color changes, upper respiratory tract symptoms, cough, wheezing, shortness of breath, diarrhea, constipation, rectal bleeding, black/tarry stools, urinary symptoms, hematuria, vaginal bleeding, vaginal discharge, genital paresthesias, bowel and bladder dysfunction, lower extremity weakness/numbness/tingling. Review of Systems: As noted above in history of present illness. At least body systems were reviewed and found to be negative as noted above. Past Medical History: As noted above, diabetes. Current Medications: Medications Dose Route/Sig Max Daily Dose Days Date Category Dose Instructions Ocuvite Preservision (Multivitamins/Minerals) 1 Tab Tab 1 Tab PO BID 09/24/17 Reported Aripiprazole 5 Mg Tab 2.5 Mg PO DAILY 09/24/17 Reported Meloxicam 15 Mg Tab 15 Mg PO DAILY 09/24/17 Reported Atorvastatin Calcium (Atorvastatin) 10 Mg Tab 10 Mg PO QAM 09/24/17 Reported Aspirin Ec (Aspirin) 81 Mg Tab 81 Mg PO QAM 03/23/17 Reported Cymbalta (Duloxetine HCl) 20 Mg Cap 20 Mg PO TID 30 03/23/17 Reported Lantus Solostar (Insulin Glargine) 100 Unit/Ml Inj 65 Units SC HS 03/23/17 Reported Klonopin (Clonazepam) 1 Mg Tab 1 Mg PO DAILY PRN 10/20/16 Reported MAY TAKE THIS DOSE AN ADDITION TO THE 1MG TAKEN DAILY IF NEEDED Trazodone (Trazodone HCl) 50 Mg Tab 50 Mg PO HS PRN 10/20/16 Reported Risperidone 0.5 Mg Tab 0.5 Mg PO DAILY PRN 10/19/16 Reported Bupropion HCl Sr (Bupropion HCl) 100 Mg Tabcr 100 Mg PO BID 03/11/16 Reported Clonazepam 1 Mg Tab 1 Mg PO DAILY@1500 03/11/16 Reported Prilosec (Omeprazole) 20 Mg Cap 20 Mg PO DAILY 03/11/16 Reported Liothyronine Sodium 5 Mcg Tab 5 Mcg PO DAILY 03/11/16 Reported Levothyroxine Sodium 112 Mcg Tab 112 Mcg PO DAILY 03/11/16 Reported Novolog Flexpen (Insulin Aspart) 100 Units/Ml Inj 30-50 Units SC TIDM 12/25/15 Reported Centrum Silver Adult 50+ (Multiple Vitamins W/ Minerals) 1 Tab Tab 1 Tab PO HS 01/08/15 Reported Buspirone Hcl 30 Mg Tab 30 Mg PO BID 01/08/15 Reported Allergies to Medications: Ciprofloxacin. Social History: Patient is not employed; she feels safe in her home environment ; she denies tobacco use and admits to alcohol use. Physical Examination: Vital Signs: Date Time Temp Pulse Resp B/P (MAP) Pulse Ox O2 Delivery O2 Flow Rate FiO2 09/24/17 15:01 36.3 81 20 124/69 91 09/24/17 13:55 81 20 124/69 91 Room Air 09/24/17 13:22 76 09/24/17 12:21 36.3 84 22 122/77 94 Room Air GENERAL: 67-year-old female in mild to moderate distress due to pain, nontoxic- appearing, afebrile and hemodynamically stable. NEUROLOGICAL: Awake, alert and oriented to person, place and time. Answering questions appropriately and following commands. Normal gait. Good hand eye coordination. No focal motor sensory deficits. SKIN: Warm, dry and pink. No soft tissue eruptions or trauma noted. HEENT: Atraumatic and normocephalic. PERRL. Sclera white and conjunctiva pink. No drainage from naris. Oral cavity moist and pink. Pharynx is nonerythematous or edematous. Speech normal. No lymphadenopathy. Trachea midline. No jugular venous distention. BACK: No tenderness over the bony spine. No tenderness throughout the thoracic and lumbar paraspinous musculature. No CVA tenderness. THORAX: Lungs sounds are clear to auscultation and equal bilaterally with symmetrical chest wall. No wheezing, rales or rhonchi. No crepitus, tenderness , subcutaneous air or deformities noted. HEART: Regular rate and rhythm. No gallops, rubs or murmurs are appreciated. ABDOMEN: Peace, soft and nontender. Positive bowel sounds in all quadrants. No guarding, rigidity or organomegaly. EXTREMITIES: Moves all extremities well on command and with purpose. All distal neurovascular statuses are intact and equal bilaterally. No calf tenderness or cords. ED Course: Patient is assessed as noted above. Patient's medication list was reviewed. Laboratory Testing: Test 09/24/17 12:41 09/24/17 12:45 Range/Units White Blood Count 6.64 4.8-10.8 K/uL Red Blood Count 4.73 4.2-5.4 M/uL Hemoglobin 13.4 12.0-16.0 g/dL Hematocrit 41.0 37-47 % Mean Corpuscular Volume 86.7 80-100 fL Mean Corpuscular Hemoglobin 28.3 25-34 pg Mean Corpuscular Hemoglobin Concent 32.7 32-36 g/dl Platelet Count 224 130-400 K/uL Mean Platelet Volume 9.6 7.4-10.4 fL Neutrophils (%) (Auto) 63.4 % Lymphocytes (%) (Auto) 21.2 % Monocytes (%) (Auto) 9.6 % Eosinophils (%) (Auto) 4.7 % Basophils (%) (Auto) 0.8 % Neutrophils # (Auto) 4.21 1.4-6.5 K/uL Lymphocytes # (Auto) 1.41 1.2-3.4 K/uL Monocytes # (Auto) 0.64 0.11-0.59 K/uL Eosinophils # (Auto) 0.31 0-0.5 K/uL Basophils # (Auto) 0.05 0-0.2 K/uL RDW Standard Deviation 43.7 36.4-46.3 fL RDW Coefficient of Variation 13.9 11.5-14.5 % Immature Granulocyte % (Auto) 0.3 % Immature Granulocyte # (Auto) 0.02 0.00-0.02 K/uL Sodium Level 138 136-145 mmol/L Potassium Level 3.5-5.1 mmol/L Chloride Level 107 98-107 mmol/L Carbon Dioxide Level 23 21-32 mmol/L Anion Gap 8.0 3-11 mmol/L Blood Urea Nitrogen 19 7-18 mg/dl Creatinine 1.02 0.60-1.20 mg/dl Est Creatinine Clear Calc Drug Dose 79.2 ml/min Estimated GFR () 66.4 Estimated GFR (Non- 57.3 BUN/Creatinine Ratio 19.0 10-20 Random Glucose 87 70-99 mg/dl Calcium Level 9.2 8.5-10.1 mg/dl Total Bilirubin 0.4 0.2-1 mg/dl Direct Bilirubin 0-0.2 mg/dl Aspartate Amino Transf (AST/SGOT) 15-37 U/L Alanine Aminotransferase (ALT/SGPT) 60 12-78 U/L Alkaline Phosphatase 117 45-117 U/L Total Protein 7.2 6.4-8.2 gm/dl Albumin 3.7 3.4-5.0 gm/dl Lipase 107 73-393 U/L Urine Color YELLOW Urine Appearance CLEAR CLEAR Urine pH 7.0 4.5-7.5 Urine Specific Mackey 1.008 1.000-1.030 Urine Protein NEG NEG Urine Glucose (UA) NEG NEG Urine Ketones NEG NEG Urine Occult Blood NEG NEG Urine Nitrite NEG NEG Urine Bilirubin NEG NEG Urine Urobilinogen NEG NEG Urine Leukocyte Esterase MODERATE NEG Urine WBC (Auto) 1-5 0-5 /hpf Urine RBC (Auto) 5-10 0-4 /hpf Urine Hyaline Casts (Auto) 0 0-5 /lpf Urine Epithelial Cells (Auto) 10-20 0-5 /lpf Urine Bacteria (Auto) NEG NEG Noncontrast abdominal/pelvic CT: Was reviewed by myself and read by the radiologist showing bilateral nephrolithiasis without ureter calculus or obstructive uropathogen he, postoperative changes to his. Pole of the left kidney, appendix was not visualized but no secondary signs of acute appendicitis is were noted, hepatomegaly a with hepatic steatosis, and possible uterine fibroid. Patient was hydrated with normal saline and received a total of 12 mg of morphine IV for pain and 4 mg of Zofran IV for nausea. Patient was reassessed multiple times during her stay in the emergency department. Patient's case was reviewed with ; we agreed on diagnostic approach , treatment, disposition and plan. Patient was educated about today's findings and instructed on her treatment plan ; she verbalized understanding and agreement with this plan. Clinical Impression: Left flank pain. Possible renal colic. Decision-Making: Initially my differential diagnosis I consider musculoskeletal disorder, ureter calculus, pyelonephritis, renal colic and other causes. Disposition: Patient discharged home in stable condition accompanied by her ; prior to departure she was reassessed and subjectively reported she was feeling better and rated her discomfort 7/10. Plan: Patient was placed on a sliding pain scale of ibuprofen, acetaminophen and Percocet; appropriate narcotic precautions were discussed with the patient and her name was checked in the state database and no red flags were noted. Patient was encouraged to stay well-hydrated and strain all urine for stones for final testing. Patient is encouraged to continue her current medications as prescribed. Patient is encouraged to follow-up with her urologist for recheck. Patient was encouraged return ED for worsening/uncontrolled pain, fevers, urinary symptoms or any new/concerning symptoms.
== END 2017-09-24 15:02 | disposition home or self-care (01) ==
LOC: C.EDB 12:18 → C.EDC 15:02
DX: R10.32 Left lower quadrant pain (principal); E11.9 Type 2 diabetes mellitus without complications; Z79.4 Long term (current) use of insulin

== ENCOUNTER → 2017-09-29 | Outpatient (CLI) | payer OTHER ==
[~2017-09-29] MED LIST changes: +ARIP1TAB14 PO; -DOCU100C31 PO; +LPT10 PO; +MELO15TA4 PO; +MULT-190 PO; +OXYC-57 PO
== END | disposition home or self-care (01) ==
LOC: C.LABSPEC 17:20
PROVIDERS: ATTEND Urology
DX: N20.0 Calculus of kidney (principal)

== ENCOUNTER 2017-10-05 09:24 | Day surgery (SDC) | payer OTHER ==
[2017-10-04 08:45] VITALS: BMI 43.0
[~2017-10-05] VITALS: Ht 175.3 cm; Wt 131.8 kg
[~2017-10-05 09:24] MED LIST changes: +ATROPINE SULFATE 0.1 MG/ML 5ML SYR IV PRN; +CEFTRIAXONE SOD INJ 1000 MG in DEXTROSE 5% 50ML IV SCH; +EpHEDrine SULFATE INJ 50 MG/ML AMP IV PRN; +FENTANYL CITRATE INJ 50 MCG/1 ML 2 ML VIAL IV PRN; +HYDROmorphone INJ 1 MG/ML SYR IV PRN; +LACTATED RINGER'S 1000ML 1,000 ML IV SCH; +ONDANSETRON INJ 2 MG/ML 2 ML VIAL IV PRN; +PHENYLEPHRINE 100MCG/ML 5ML SYR IV PRN; +PROMETHAZINE HCL INJ 12.5 MG in SODIUM CHLORIDE 0.9% 50ML 50 ML IV PRN
[2017-10-05] MEDS ORDERED: LIDOCAINE HCL 2% 2 ML VIAL (20MG/ML) ONE ×2 (09:42→09:56)
[2017-10-05] MEDS ORDERED: MIDAZOLAM HCL 1 MG/ML 2ML VIAL ONE ×2 (09:42→09:53)
[2017-10-05] MEDS ORDERED: PROPOFOL IV EMULSION 10 MG/ML 20 ML VIAL IV ONE ×2 (09:42→09:56)
[2017-10-05] MEDS ORDERED: FENTANYL CITRATE INJ 50 MCG/1 ML 2 ML VIAL ONE (09:42)
[2017-10-05 09:52] VITALS: BP 163/72; PULSE 83; TEMP 36.5; O2SAT 95; Ht 175.3 cm; Wt 131.8 kg
--- NOTE | 2017-10-05 10:43 | History & Physical Bridge Note ---
H&P Re-Evaluation Bridge Note: I have examined the patient, reviewed the History & Physical and in the interval since the performance of the History & Physical I have noted the following changes of clinical significance: No changes noted
[2017-10-05] MEDS ORDERED: CONRAY 30% 150ML BOTTLE ONE (10:45)
--- NOTE | 2017-10-05 10:47 | [facility] Operative Report ---
Operative Report Operative Date Oct 05, 2017. Pre-Operative Diagnosis Left Renal stone Post-Operative Diagnosis Same Procedure(s) Performed Cystoscopy, Left Retrograde, Stent placement, Laser Lithotripsy, Ureteroscopy. Surgeon Gregorio Estimated Blood Loss 10 Findings Large left renal calc Drains 6 x24 Double J Left Anesthesia General Complication(s) None Disposition Recovery Room / PACU Indications Large left stone with intermittent colic. Risks and benefits discussed at length. Description of Procedure Patient was consented and brought back to the operating room. Patient was placed under anesthesia in the supine position. Patient was prepped and draped in the regular sterile fashion. A time out was completed. A 30degree Cystoscope was placed into the bladder and the entire bladder was examined. The UO's were identified. The left was cannulized with a catheter and a retrograde pyelogram was completed. A wire was then placed. A second safety wire was placed. The ureteral access sheath was placed and the scope placed inside. The entire ureter and renal pelvis were examined. All stones were treated within the left renal pelvis by pulverization with laser lithotripsy. The entire area was inspected and the scope slowly removed maintaining the safety wire. The entire ureter was clear of fragments. With the wire in place, a 6 x [24] Double J stent was placed. It was confirmed with fluoroscopy. With the stent in place, the bladder was emptied. The scope was removed. The patient was cleaned, aroused from anesthesia, and transferred to the pacu in stable condition having tolerated the procedure well with no complications. I was present and participated in all aspects of the procedure. The patient will be monitored in the PACU until transferred. I attest to the content of the Intraoperative Record and any orders documented therein. Any exceptions are noted below.
[2017-10-05] MEDS ORDERED: PHEN-876 PO (10:48)
[2017-10-05] MEDS ORDERED: OXYC7.5T65 PO (10:48)
[2017-10-05] MEDS ORDERED: CEPH500C PO (10:48)
--- NOTE | 2017-10-05 10:50 | Discharge Instructions ---
Discharge Instructions Date of Service Oct 05, 2017. Admission Reason for Admission: Stones Discharge Discharge Diagnosis / Problem: Left Stone Discharge Goals Goal(s): Decrease discomfort, Improve function Activity Recommendations Activity Limitations: resume your previous activity Lifting Limitations: no more than 25 pounds May Resume Sexual Activity: when tolerated Shower/Bathe: no limitations . Instructions / Follow-Up Instructions / Follow-Up May have blood in urine or pelvic discomfort. Call if unable to urinate or any fevers or chills. Current Hospital Diet Patient's current hospital diet: Diab Discharge Diet Recommended Diet: Diabetes Type 2 Diet Procedures Procedures Performed: Cystoscopy, Left Retrograde, Stent placement, Laser Lithotripsy, Ureteroscopy. Pending Studies Studies pending at discharge: no Laboratory Results Hemoglobin A1c Test 08/20/17 11:06 Range/Units Estimated Average Glucose 146 mg/dl Hemoglobin A1c 6.7 H 4.5-5.6 % Lipid Panel Test 08/20/17 11:06 Range/Units Triglycerides Level 155 H 0-150 mg/dl Cholesterol Level 179 0-200 mg/dl HDL Cholesterol 34 mg/dl Cholesterol/HDL Ratio 5.3 LDL Cholesterol, Calculated 114 mg/dl Medical Emergencies . Who to Call and When: Medical Emergencies: If at any time you feel your situation is an emergency, please call 911 immediately. . Non-Emergent Contact Non-Emergency issues call your: Primary Care Provider, Urologist Call Non-Emergent contact if: you have a fever, temperature is above 101, temperature is above 101.5, your pain is not controlled, your pain is worsening . . "Provider Documentation" section prepared by Manuel Perkins,. . VTE Core Measure Inpt VTE Proph given/why not?: Diana Tinajero, SCD's
[2017-10-05] MEDS ORDERED: OXYCODONE/ACETAMINOPHEN 7.5-325 TAB PO PRN (11:00)
[2017-10-05] MEDS ORDERED: ONDANSETRON INJ 2 MG/ML 2 ML VIAL ONE (11:20)
[2017-10-05] MEDS ORDERED: DEXAMETHASONE SOD INJ 4 MG/ML VIAL ONE (11:20)
[2017-10-05] MEDS ORDERED: MIDAZOLAM HCL 1 MG/ML 2ML VIAL IV ONE (12:15)
--- NOTE | 2017-10-05 12:40 | Anesthesiology Progress Note ---
Anesthesia Post Op Note Date & Time Oct 05, 2017 at 12:39 Vital Signs Pain Intensity: 0 Vital Signs Past 12 Hours Date Time Temp Pulse Resp B/P (MAP) Pulse Ox O2 Delivery O2 Flow Rate FiO2 10/05/17 12:32 37.0 94 20 126/77 (84) 93 Nasal Cannula 2 10/05/17 12:26 121/71 10/05/17 12:23 96 19 91 10/05/17 12:23 94 19 10/05/17 12:22 110/60 10/05/17 12:18 97 19 95 10/05/17 12:18 97 19 10/05/17 12:16 141/94 10/05/17 12:13 98 96 10/05/17 12:13 98 10/05/17 12:12 99 10/05/17 12:12 99 96 10/05/17 12:12 99 10/05/17 12:12 99 96 10/05/17 12:07 36.4 99 16 150/76 94 Oxymask 10 10/05/17 09:52 36.5 83 18 163/72 (102) 95 Room Air Notes Mental Status: alert / awake / arousable, participated in evaluation Pt Amnestic to Procedure: Yes Nausea / Vomiting: adequately controlled Pain: adequately controlled Airway Patency, RR, SpO2: stable & adequate BP & HR: stable & adequate Hydration State: stable & adequate Anesthetic Complications: no major complications apparent Awake, doing well, no complaints. VSS.
[2017-10-05 12:55] VITALS: BP 131/68; PULSE 87; TEMP 36.4; O2SAT 93
[2017-10-05 13:25] VITALS: BP 130/74; PULSE 89; O2SAT 94
--- NOTE | 2017-10-05 13:49 | DIAGNOSTIC IMAGING REPORT ---
RETROGRADE INCLUDES KUB HISTORY: LT CYSTO/LASER/STENT FLUOROSCOPY TIME: 37 seconds. FINDINGS: 6 fluoroscopic spot images were submitted for review. Initial images demonstrate retrograde opacification of the left renal collecting system followed by lithotripsy within the left lower pole stone. Small round filling defect within the left renal pelvis may represent a gas bubble. This is followed by placement of a left ureteral stent. The stent appears to be in good position. IMPRESSION: Fluoroscopy provided for left side lithotripsy with placement of a left ureteral stent. The stent appears to be in good position. Electronically signed by: Marcello Antoine M.D. 10/05/2017 1:48 PM Dictated Date/Time: 10/05/2017 1:45 PM
[2017-10-05 13:55] VITALS: BP 137/92; PULSE 92; TEMP 36.5; O2SAT 93
== END 2017-10-05 14:13 | disposition home or self-care (01) ==
LOC: C.ACU 09:24
PROVIDERS: ATTEND Urology
DX: N20.0 Calculus of kidney (principal); D64.9 Anemia, unspecified; F41.8 Other specified anxiety disorders; E11.65 Type 2 diabetes mellitus with hyperglycemia; K76.0 Fatty (change of) liver, not elsewhere classified; E78.5 Hyperlipidemia, unspecified; I10 Essential (primary) hypertension; E03.9 Hypothyroidism, unspecified; G47.00 Insomnia, unspecified; G47.33 Obstructive sleep apnea (adult) (pediatric); E66.9 Obesity, unspecified; M54.17 Radiculopathy, lumbosacral region; E53.8 Deficiency of other specified B group vitamins; E55.9 Vitamin D deficiency, unspecified; Z79.4 Long term (current) use of insulin; Z79.82 Long term (current) use of aspirin; Z79.899 Other long term (current) drug therapy

== ENCOUNTER 2017-10-10 16:23 | Emergency (ER) | payer OTHER ==
[~2017-10-10] VITALS: Ht 172.7 cm; Wt 131.8 kg
[~2017-10-10 16:23] MED LIST changes: -ATROPINE SULFATE 0.1 MG/ML 5ML SYR IV PRN; -CEFTRIAXONE SOD INJ 1000 MG in DEXTROSE 5% 50ML IV SCH; +CEPH500C PO; -EpHEDrine SULFATE INJ 50 MG/ML AMP IV PRN; -FENTANYL CITRATE INJ 50 MCG/1 ML 2 ML VIAL IV PRN; -HYDROmorphone INJ 1 MG/ML SYR IV PRN; -LACTATED RINGER'S 1000ML 1,000 ML IV SCH; -ONDANSETRON INJ 2 MG/ML 2 ML VIAL IV PRN; +OXYC7.5T65 PO; +PHEN-876 PO; -PHENYLEPHRINE 100MCG/ML 5ML SYR IV PRN; -PROMETHAZINE HCL INJ 12.5 MG in SODIUM CHLORIDE 0.9% 50ML 50 ML IV PRN
[2017-10-10 16:25] VITALS: Ht 172.7 cm; Wt 131.8 kg
[2017-10-10] MEDS ORDERED: MoRPHine SULFATE 10 MG/ML CARP/VIAL IV PRN (17:30)
[2017-10-10] MEDS ORDERED: ONDANSETRON INJ 2 MG/ML 2 ML VIAL IV STA (17:30)
[2017-10-10] MEDS ORDERED: PROMETHAZINE HCL INJ 6.25 MG in SODIUM CHLORIDE 0.9% 50ML 50 ML IV STA (17:30)
[2017-10-10] MEDS ORDERED: SODIUM CHLORIDE 0.9% 1000ML 1,000 ML IV STA (17:30)
[2017-10-10] MEDS ORDERED: KETOROLAC TROMETHAMINE 30 MG/ML VIAL IV STA (17:30)
--- NOTE | 2017-10-10 17:38 | EMERGENCY ROOM VISIT NOTE ---
History Report prepared by Jyoti: Salas Richter Under the Supervision of: Dr. Chandler Maya M.D. First contact with patient: 17:29 Chief Complaint: FLANK PAIN Stated Complaint: KIDNEY STONE REMOVAL 10/05-INTENSE PAIN History of Present Illness The patient is a 67 year old female who presents to the Emergency Room with complaints of constant left-sided flank pain beginning two days ago. The patient states that she was diagnosed with a 1cm kidney stone five days ago. She notes that she had a lithotripsy and had a stent placed from her kidney down to her bladder. She reports that she was prescribed oxycodone, but used her last dose five and a half hours ago. The patient states that her pain feels worse than it did when she had the procedure done. She also complains of nausea and dry heaving, but denies any fever, urinary symptoms, and vomiting. She notes that she has no previous history of a stent placed, but reports that she has had six kidney stones in the past that she has been able to pass on her own. She also states that she had surgery on her left kidney two years ago to remove a growth. She rates her pain as an 8/10. Source of History: patient Onset: two days ago Position: other (left flank) Symptom Intensity: 8/10 Timing: constant Associated Symptoms: + nausea, No fevers, No vomiting, No urinary symptoms Note: She also complains of dry heaving. Review of Systems See HPI for pertinent positives & negatives. A total of 10 systems reviewed and were otherwise negative. Past Medical & Surgical Medical Problems: (1) Anal cancer (2) Anxiety disorder, unspecified (3) Arthropathy of right knee (4) Constipation (5) Depression (6) Diabetes mellitus (7) Dysthymic disorder (8) Hypothyroidism (9) IDDM (insulin dependent diabetes mellitus) (10) Kidney stones (11) Obesity (BMI 35.0-39.9 without comorbidity) (12) Pain (13) Renal mass, left (14) Renal mass, right Surgical Problems: (1) H/O: hysterectomy (2) History of colostomy (3) History of kidney surgery (4) History of lithotripsy (5) History of renal stent Family History No pertinent family history Social History Smoking Status: Never Smoker Alcohol Use: occasionally Drug Use: none Marital Status: Housing Status: lives with significant other Occupation Status: disabled Current/Historical Medications Scheduled Aripiprazole (Aripiprazole), 2.5 MG PO QAM Aspirin (Aspirin Ec), 81 MG PO QAM Atorvastatin (Atorvastatin Calcium), 10 MG PO QAM Bupropion HCl (Bupropion HCl Sr), 100 MG PO BID Buspirone Hcl (Buspirone Hcl), 30 MG PO BID Clonazepam (Clonazepam), 1 MG PO DAILY@1500 Duloxetine HCl (Cymbalta), 20 MG PO TID Insulin Aspart (Novolog Flexpen), 30-50 UNITS SC TIDM Insulin Glargine (Lantus Solostar), 65 UNITS SC HS Levothyroxine Sodium (Levothyroxine Sodium), 112 MCG PO QAM Liothyronine Sodium (Liothyronine Sodium), 5 MCG PO QAM Meloxicam (Meloxicam), 15 MG PO QAM Multiple Vitamins W/ Minerals (Centrum Silver Adult 50+), 1 TAB PO HS Ocuvite Preservision (Ocuvite Preservision), 1 TAB PO BID Omeprazole (Prilosec), 20 MG PO QAM Ondasetron Odt (Zofran Odt), 4 MG SL Q6H Scheduled PRN Clonazepam (Klonopin), 1 MG PO DAILY PRN for Anxiety Oxycodone Ir (Roxicodone Ir), 1-2 TAB PO Q4H PRN for Pain Oxycodone/Acetaminophen 7.5MG/325MG (Percocet 7.5MG/325MG), 1-2 TAB PO Q4H PRN for Pain Risperidone (Risperidone), 0.5 MG PO DAILY PRN for Anxiety/Agitation Trazodone Hcl (Trazodone), 50 MG PO HS PRN for Sleep Allergies Coded Allergies: Ciprofloxacin (Verified Adverse Reaction, Unknown, ALTERED MENTAL STATE, AGITATED, 10/10/17) Physical Exam Vital Signs Date Time Temp Pulse Resp B/P (MAP) Pulse Ox O2 Delivery O2 Flow Rate FiO2 10/10/17 19:02 36.9 78 18 113/63 94 Room Air 10/10/17 16:25 36.3 84 18 146/77 95 Room Air Physical Exam GENERAL: Patient is in no acute distress. HEENT: No acute trauma, normocephalic atraumatic, mucous membranes moist, no nasal congestion, no scleral icterus. NECK: No stridor, no adenopathy, no meningismus, trachea is midline. LUNGS: Clear to auscultation bilaterally, no wheeze, no rhonchi, breath sounds equal. HEART: Without murmurs gallops or rubs, regular rate and rhythm. ABDOMEN: Soft, nontender, bowel sounds positive, no hernias, no peritonitis. EXTREMITIES: No cyanosis or edema, full range of motion of all the joints without pain or difficulty, no signs for acute trauma. NEUROLOGIC: Oriented x 3, no acute motor or sensory deficits, no focal weakness. SKIN: No rash, no jaundice, no diaphoresis. Medical Decision & Procedures ER Provider Diagnostic Interpretation: Radiology results as stated below per my review and radiologist interpretation: ULTRASOUND KIDNEYS AND BLADDER FINDINGS: Kidneys: The kidneys are normal in size and echotexture. The right kidney measures 11.3 x 4.6 x 5.5 cm and the left kidney measures 11.7 x 5.9 x 6.3 cm. There is no hydronephrosis. No shadowing renal calculi are identified. There is no sonographic evidence of contour deforming renal mass lesion. No perinephric fluid is identified. A left ureteral stent is in place. Bladder: The bladder is normal in appearance. Bilateral ureteral jets were seen. Abdomen: Survey images of the liver show evidence of hepatomegaly and hepatic steatosis. IMPRESSION: 1. The kidneys are normal in size and without hydronephrosis. 2. A left ureteral stent is in place. 3. The bladder is grossly normal in appearance. 4. Hepatomegaly and hepatic steatosis. Electronically signed by: Chandler Tucker M.D. 10/10/2017 6:56 PM KUB FINDINGS: 2 AP supine abdominal radiograph are correlated with abdominal CT dated 09/24/2017. A left ureteral stent is new from previous. No calcifications are identified along the course of the stent. No calcifications are identified projecting over either kidney or along the course of the right ureter. The renal shadows are largely obscured by overlying colonic contents. There is moderate to severe constipation. No bowel obstruction is seen. The skeletal structures are osteopenic. The bony structures are grossly intact. Lumbosacral spondylosis is observed. IMPRESSION: 1. A left ureteral stent is new from previous. No calcifications are seen along the course of the stent. 2. No calculi are identified projecting over either kidney or along the course of the right ureter. 3. Moderate to severe constipation. Electronically signed by: Chandler Tucker M.D. 10/10/2017 6:57 PM Laboratory Results 10/10/17 17:50 Red Blood Count 4.90, Mean Corpuscular Volume 86.1, Mean Corpuscular Hemoglobin 28.0, Mean Corpuscular Hemoglobin Concent 32.5, Mean Platelet Volume 9.2, Neutrophils (%) (Auto) 56.5, Lymphocytes (%) (Auto) 22.6, Monocytes (%) (Auto) 13.5, Eosinophils (%) (Auto) 6.1, Basophils (%) (Auto) 0.9, Neutrophils # (Auto ) 3.23, Lymphocytes # (Auto) 1.29, Monocytes # (Auto) 0.77, Eosinophils # (Auto ) 0.35, Basophils # (Auto) 0.05 10/10/17 17:50 Test 10/10/17 17:40 10/10/17 17:50 Urine Color YELLOW Urine Appearance CLEAR (CLEAR) Urine pH 6.5 (4.5-7.5) Urine Specific [place] 1.014 (1.000-1.030) Urine Protein NEG (NEG) Urine Glucose (UA) NEG (NEG) Urine Ketones NEG (NEG) Urine Occult Blood 3+ (NEG) Urine Nitrite NEG (NEG) Urine Bilirubin NEG (NEG) Urine Urobilinogen NEG (NEG) Urine Leukocyte Esterase LARGE (NEG) Urine WBC (Auto) 10-30 /hpf (0-5) Urine RBC (Auto) >30 /hpf (0-4) Urine Hyaline Casts (Auto) 1-5 /lpf (0-5) Urine Epithelial Cells (Auto) 10-20 /lpf (0-5) Urine Bacteria (Auto) NEG (NEG) White Blood Count 5.71 K/uL (4.8-10.8) Red Blood Count 4.90 M/uL (4.2-5.4) Hemoglobin 13.7 g/dL (12.0-16.0) Hematocrit 42.2 % (37-47) Mean Corpuscular Volume 86.1 fL (80-100) Mean Corpuscular Hemoglobin 28.0 pg (25-34) Mean Corpuscular Hemoglobin Concent 32.5 g/dl (32-36) Platelet Count 195 K/uL (130-400) Mean Platelet Volume 9.2 fL (7.4-10.4) Neutrophils (%) (Auto) 56.5 % Lymphocytes (%) (Auto) 22.6 % Monocytes (%) (Auto) 13.5 % Eosinophils (%) (Auto) 6.1 % Basophils (%) (Auto) 0.9 % Neutrophils # (Auto) 3.23 K/uL (1.4-6.5) Lymphocytes # (Auto) 1.29 K/uL (1.2-3.4) Monocytes # (Auto) 0.77 K/uL (0.11-0.59) Eosinophils # (Auto) 0.35 K/uL (0-0.5) Basophils # (Auto) 0.05 K/uL (0-0.2) RDW Standard Deviation 43.2 fL (36.4-46.3) RDW Coefficient of Variation 13.9 % (11.5-14.5) Immature Granulocyte % (Auto) 0.4 % Immature Granulocyte # (Auto) 0.02 K/uL (0.00-0.02) Anion Gap 5.0 mmol/L (3-11) Est Creatinine Clear Calc Drug Dose 81.2 ml/min Estimated GFR () 69.7 Estimated GFR (Non- 60.1 BUN/Creatinine Ratio 13.0 (10-20) Calcium Level 9.2 mg/dl (8.5-10.1) Total Bilirubin 0.3 mg/dl (0.2-1) Aspartate Amino Transf (AST/SGOT) 31 U/L (15-37) Alanine Aminotransferase (ALT/SGPT) 56 U/L (12-78) Alkaline Phosphatase 119 U/L (45-117) Total Protein 7.2 gm/dl (6.4-8.2) Albumin 3.7 gm/dl (3.4-5.0) Globulin 3.5 gm/dl (2.5-4.0) Albumin/Globulin Ratio 1.1 (0.9-2) Laboratory results reviewed by me. Medications Administered Medications (Trade) Dose Ordered Sig/Chong Route Start Time Stop Time Status Last Admin Dose Admin Ondansetron HCl (Zofran Inj) 4 mg NOW STAT IV 10/10/17 17:30 10/10/17 17:35 DC 10/10/17 18:05 4 MG Sodium Chloride 1,000 ml @ 999 mls/hr Q1H1M STAT IV 10/10/17 17:30 10/10/17 18:30 DC 10/10/17 18:08 999 MLS/HR Morphine Sulfate (MoRPHine SULFATE INJ) 6 mg Q15M PRN IV 10/10/17 17:30 10/24/17 17:29 10/10/17 18:05 6 MG Ketorolac Tromethamine (Toradol Inj) 30 mg NOW STAT IV 10/10/17 17:30 10/10/17 17:35 DC 10/10/17 18:05 30 MG Promethazine HCl 6.25 mg/Sodium Chloride 50.25 ml @ 204 mls/hr NOW STAT IV 10/10/17 17:30 10/10/17 17:44 DC 10/10/17 18:07 204 MLS/HR Oxycodone HCl (Roxicodone Immediate Rel 5MG Home Pack) 1 homepack UD ONCE PO 10/10/17 19:30 10/10/17 19:31 DC 10/10/17 19:50 1 HOMEPACK Ondansetron HCl (ZOFRAN ODT 4MG Home Pack) 1 homepack UD ONCE PO 10/10/17 19:30 10/10/17 19:31 DC 10/10/17 19:50 1 HOMEPACK ED Course 1729: The patient was evaluated in room C2. A complete history and physical exam was performed. 0: Promethazine HCl 6.25 mg/Sodium Chloride 50.25 ml @ 204 mls/hr IV, Toradol Inj 30mg IV, Sodium Chloride 1000 ml @ 999 mls/hr IV, Zofran Inj 4mg IV 0: I reevaluated and updated the patient. 1929: Ondansetron HCl 1 homepack PO, Oxycodone HCl 1 homepack PO 1934: Reevaluated the patient. Discussed results and discharge instructions: She verbalized understanding and agreement. The patient is ready for discharge. Medical Decision Differential diagnoses include: hydronephrosis, stent pain, UTI, stent migration , renal failure, electrolyte imbalance, and anemia. There is no leukocytosis or concerning anemia. No significant electrolyte abnormality, kidney failure, hepatitis. Urinalysis shows findings consistent with the stent, no true evidence for infection. Renal ultrasound does not show hydronephrosis. KUB shows the stent to be in proper position. The patient received IV saline, IV Toradol, IV Zofran, IV Phenergan and IV morphine. She has had pain relief and nausea control. The patient is comfortable and would like to be discharged home. I think this is reasonable. She will be discharged with oxycodone, Zofran. She will stay well hydrated. She has an appointment in 2 days to see her urologist, she will of course keep this appointment. The patient was encouraged to use more Miralax and stool softeners as she is somewhat constipated by KUB, she has a long history of constipation. The patient can return for fever, vomiting or worsening symptoms. I suspect she is having discomfort from the stent itself. [place] Drug Monitoring Program Search Results: no issues identified Medication Reconcilliation Current Medication List: was personally reviewed by me Blood Pressure Screening Patient's blood pressure: Elevated blood pressure Blood pressure disposition: Elevated BP felt to be situational Impression Primary Impression: Renal colic Additional Impression: Constipation Scribe Attestation The scribe's documentation has been prepared under my direction and personally reviewed by me in its entirety. I confirm that the note above accurately reflects all work, treatment, procedures, and medical decision making performed by me. Departure Information Dispostion Home / Self-Care Prescriptions Ondasetron Odt (ZOFRAN ODT) 4 Mg Tab 4 MG SL Q6H for Nausea, #10 TAB Prov: Chandler Maya M.D. 10/10/17 Oxycodone Ir (Roxicodone Ir) 5 Mg Tab 1-2 TAB PO Q4H Y for Pain, #10 TAB Prov: Chandler Maya M.D. 10/10/17 Referrals Pro,Moustapha Murguia M.D. (PCP) Forms HOME CARE DOCUMENTATION FORM, IMPORTANT VISIT INFORMATION Patient Instructions My [facility] Additional Instructions stay hydrated increase miralax use and add senokot otc for the constipation oxy ir 1-2 tab every 4 hours for severe pain zofran 1-2 tab every 6 hours for nausea see urology as scheduled return for uncontrolled pain, fever or vomiting Problem Qualifiers
[2017-10-10] MEDS ORDERED: OXYC7.5T65 PO (17:49)
[2017-10-10 17:58] LABS: BASO % 0.9 %; BASO ABS # 0.05 K/uL (0-0.2); COMPLETE YES; EOS % 6.1 %; HEMATOCRIT 42.2 % (37-47); IG% 0.4 %; LYMPH % 22.6 %; LYMPH ABS # 1.29 K/uL (1.2-3.4); MEAN CELL VOLUME 86.1 fL (80-100); MEAN CORPUSCULAR HGB CONC 32.5 g/dl (32-36); MEAN PLATELET VOLUME 9.2 fL (7.4-10.4); MONO % 13.5 %; NEUT % 56.5 %; PLATELET COUNT 195 K/uL (130-400); WHITE BLOOD COUNT 5.71 K/uL (4.8-10.8)
[2017-10-10 18:05] LABS: MANUAL MICROSCOPIC REQUIRED? NO; REVIEW REQ? NO; URINE APPEARANCE CLEAR (CLEAR); URINE BILIRUBIN NEG (NEG); URINE COLOR YELLOW; URINE NITRITE NEG (NEG); URINE PH 6.5 (4.5-7.5); URINE SPECIFIC GRAVITY 1.014 (1.000-1.030); UROBILINOGEN NEG (NEG); ZZUR CULT IF INDIC CLEAN CATCH YES
[2017-10-10 18:16] LABS: CALCIUM 9.2 mg/dl (8.5-10.1); CREATININE 0.98 mg/dl (0.60-1.20)
[2017-10-10 18:19] LABS: ALB/GLOB RATIO 1.1 (0.9-2)
--- NOTE | 2017-10-10 18:58 | DIAGNOSTIC IMAGING REPORT ---
ULTRASOUND KIDNEYS AND BLADDER CLINICAL HISTORY: Right flank pain. COMPARISON STUDY: Abdominal CT dated 09/24/2017. TECHNIQUE: Real-time, grayscale, and color flow sonography of the kidneys and bladder is performed. Images are reviewed in the transverse and longitudinal planes. FINDINGS: Kidneys: The kidneys are normal in size and echotexture. The right kidney measures 11.3 x 4.6 x 5.5 cm and the left kidney measures 11.7 x 5.9 x 6.3 cm. There is no hydronephrosis. No shadowing renal calculi are identified. There is no sonographic evidence of contour deforming renal mass lesion. No perinephric fluid is identified. A left ureteral stent is in place. Bladder: The bladder is normal in appearance. Bilateral ureteral jets were seen. Abdomen: Survey images of the liver show evidence of hepatomegaly and hepatic steatosis. IMPRESSION: 1. The kidneys are normal in size and without hydronephrosis. 2. A left ureteral stent is in place. 3. The bladder is grossly normal in appearance. 4. Hepatomegaly and hepatic steatosis. Electronically signed by: Chandler Tucker M.D. 10/10/2017 6:56 PM Dictated Date/Time: 10/10/2017 6:54 PM
--- NOTE | 2017-10-10 18:59 | DIAGNOSTIC IMAGING REPORT ---
KUB CLINICAL HISTORY: Right flank pain. FINDINGS: 2 AP supine abdominal radiograph are correlated with abdominal CT dated 09/24/2017. A left ureteral stent is new from previous. No calcifications are identified along the course of the stent. No calcifications are identified projecting over either kidney or along the course of the right ureter. The renal shadows are largely obscured by overlying colonic contents. There is moderate to severe constipation. No bowel obstruction is seen. The skeletal structures are osteopenic. The bony structures are grossly intact. Lumbosacral spondylosis is observed. IMPRESSION: 1. A left ureteral stent is new from previous. No calcifications are seen along the course of the stent. 2. No calculi are identified projecting over either kidney or along the course of the right ureter. 3. Moderate to severe constipation. Electronically signed by: Chandler Tucker M.D. 10/10/2017 6:57 PM Dictated Date/Time: 10/10/2017 6:56 PM
[2017-10-10 19:02] VITALS: TEMP 36.9
[2017-10-10] MEDS ORDERED: ONDA4TAB10 SL (19:22)
[2017-10-10] MEDS ORDERED: OXYC1TAB3 PO (19:22)
[2017-10-10] MEDS ORDERED: OXYCODONE IR HOME PACK PO ONE (19:30)
[2017-10-10] MEDS ORDERED: ONDANSETRON HOME PACK 4MG OD TAB PO ONE (19:30)
[2017-10-10 20:00] VITALS: BP 106/55; PULSE 78; O2SAT 92
== END 2017-10-10 20:00 | disposition home or self-care (01) ==
LOC: C.EDB 16:24 → C.EDC 20:00
DX: N23 Unspecified renal colic (principal); K59.00 Constipation, unspecified; Z85.048 Personal history of other malignant neoplasm of rectum, rectosigmoid junction, and anus; F41.9 Anxiety disorder, unspecified; F32.9 Major depressive disorder, single episode, unspecified; E11.9 Type 2 diabetes mellitus without complications; E03.9 Hypothyroidism, unspecified; Z87.442 Personal history of urinary calculi; E66.9 Obesity, unspecified; Z79.4 Long term (current) use of insulin; Z79.82 Long term (current) use of aspirin; Z79.899 Other long term (current) drug therapy

== ENCOUNTER → 2017-10-21 | Outpatient (CLI) | payer OTHER ==
[~2017-10-21] VITALS: Ht 174 cm; Wt 130.4 kg
[~2017-10-21] MED LIST changes: -CEPH500C PO; +ONDA4TAB10 SL; -OXYC-57 PO; +OXYC1TAB3 PO; -PHEN-876 PO
[2017-10-21 15:19] VITALS: BP 118/69; PULSE 90; Ht 174 cm; Wt 130.4 kg
== END | disposition home or self-care (01) ==
LOC: C.NEUR 13:37
PROVIDERS: ATTEND Internal Medicine Pulmonary Disease
DX: G47.33 Obstructive sleep apnea (adult) (pediatric) (principal)

== ENCOUNTER → 2017-11-10 | Outpatient (CLI) | payer OTHER ==
[~2017-11-10] MED LIST changes: +BUPRTAB51 PO; +CLON1TAB10 PO; -CLON1TAB3 PO; +DOCU100C31 PO; +DULO60CA44 PO; +L-ME1CAP PO; +MECL1TAB42 PO; +MELO-83 PO; +MELO-84 PO; -MELO15TA4 PO; -NVLGI/PEN SC; +NVLGI/PEN SQ; +OXYC-90 PO; -OXYC1TAB3 PO; +PRED20TA PO
--- NOTE | 2017-11-10 13:18 | DIAGNOSTIC IMAGING REPORT ---
(RENAL)RETROPERITON COMP HISTORY: 67 years-old Female N20.1 Ureteric [id number] follow-up study in a patient with recent left ureteral stent placement COMPARISON: KUB 10/10/2017, renal ultrasound 10/10/2017 TECHNIQUE: Multiple real-time sonographic images of the kidneys and urinary bladder were obtained assessing grayscale appearance and color flow FINDINGS: The right kidney measures 11.2 x 4.4 x 5.6 cm and is within normal limits without focal mass, renal calculus or hydronephrosis. Cortical medullary differentiation is preserved. Fatty infiltration of the liver is redemonstrated. The left kidney measures 10.9 x 4.6 x 4.8 cm and is also within normal limits without renal calculi, hydronephrosis or focal mass lesion identified. The previously noted left ureteral stent appears to have been removed in the interval. Urinary bladder is within normal limits with bilateral ureteral jets documented. IMPRESSION: 1. Unremarkable sonographic appearance of the bilateral kidneys and urinary bladder without renal calculi or hydronephrosis identified. 2. Hepatic steatosis. The above report was generated using voice recognition software. It may contain grammatical, syntax or spelling errors. Electronically signed by: Sal Fernandez M.D. 11/10/2017 1:17 PM Dictated Date/Time: 11/10/2017 1:14 PM
--- NOTE | 2017-11-10 13:37 | DIAGNOSTIC IMAGING REPORT ---
KUB CLINICAL HISTORY: Ureteral calculus. FINDINGS: An AP supine abdominal radiograph is compared to study dated 10/10/2017 and correlated with abdominal CT dated 09/24/2017. A left ureteral stent has been removed. There is no radiographic evidence of nephrolithiasis on today's examination. No bowel obstruction is seen. Mild lumbosacral spondylosis is observed. The bony pelvis is intact as visualized. IMPRESSION: 1. There is no radiographic evidence of nephrolithiasis on today's examination. 2. The left ureteral stent has been removed from previous. Electronically signed by: Chandler Tucker M.D. 11/10/2017 1:35 PM Dictated Date/Time: 11/10/2017 1:34 PM
== END | disposition home or self-care (01) ==
LOC: C.ULTR 12:39
PROVIDERS: ATTEND Urology
DX: N20.1 Calculus of ureter (principal)

== ENCOUNTER → 2017-11-17 | Outpatient (CLI) | payer OTHER ==
[~2017-11-17] MED LIST changes: -BUPRTAB51 PO; -CLON1TAB10 PO; +CLON1TAB3 PO; -DOCU100C31 PO; -DULO60CA44 PO; -L-ME1CAP PO; -MECL1TAB42 PO; -MELO-83 PO; -MELO-84 PO; +MELO15TA4 PO; +NVLGI/PEN SC; -NVLGI/PEN SQ; -OXYC-90 PO; +OXYC1TAB3 PO; -PRED20TA PO
== END | disposition home or self-care (01) ==
LOC: C.LABSPEC 17:44
PROVIDERS: ATTEND Urology
DX: R31.29 Other microscopic hematuria (principal); R30.0 Dysuria

== ENCOUNTER → 2018-01-05 | Outpatient (CLI) | payer OTHER ==
[~2018-01-05] MED LIST changes: +MELO-83 PO; -MELO15TA4 PO
[2018-01-05 12:40] LABS: ALT/SGPT 45 U/L (12-78); AST/SGOT 22 U/L (15-37); BLOOD UREA NITROGEN 14 mg/dl (7-18); CALCIUM 9.5 mg/dl (8.5-10.1); CARBON DIOXIDE 30 mmol/L (21-32); CREATININE 1.24 mg/dl (0.60-1.20); GLUCOSE 149 mg/dl (70-99); POTASSIUM 4.7 mmol/L (3.5-5.1); SODIUM 138 mmol/L (136-145)
== END | disposition home or self-care (01) ==
LOC: C.LAB1850 10:20
PROVIDERS: ATTEND Internal Medicine
DX: E11.9 Type 2 diabetes mellitus without complications (principal); E03.9 Hypothyroidism, unspecified; E78.5 Hyperlipidemia, unspecified

== ENCOUNTER → 2018-01-12 | Day surgery (SDC) | payer OTHER ==
[~2018-01-12] VITALS: Ht 175.3 cm; Wt 125.0 kg
[~2018-01-12] MED LIST changes: +L-ME1CAP; +LIDOCAINE HCL 2% 2 ML VIAL (20MG/ML) ONE; +PROPOFOL IV EMULSION 10 MG/ML 20 ML VIAL IV ONE; +SODIUM CHLORIDE 0.9% 500ML 500 ML IV ONE
[2018-01-12 08:09] VITALS: Ht 175.3 cm; Wt 125.0 kg
--- NOTE | 2018-01-12 08:43 | Endo History and Physical ---
History & Physical Date of Service: Jan 12, 2018. Chief Complaint: HX OF ANAL CANCER, ANEMIA, RECTAL BLEEDING Referring Physician: DR ANTON History of Present Illness 67 yo CF who presents for Flexible sigmoidoscopy secondary to history of anal cancer s/p radiation, anemia, rectal bleeding and rectal pain. Past Medical History Diabetes, Anxiety, Depression Past Surgical History Hx Cardiac Surgery: No Hx Internal Defibrillator: No Hx Pacemaker: No Hx Abdominal Surgery: Yes (kidney and cervical removeal of fallopian tubes and overies) Hx Post-Op Nausea and Vomiting: No Hx Cancer Surgery: No (D AND C CONIZATION) Hx Thoracic Surgery: No Hx Orthopedic: Yes (R KNEE ARTHROSCOPY) Hx Urinary Tract Surgery: Yes (CYSTO (2001); STENT (05/2008), PARTIAL NEPHRECTOMY) Family History Colon CA Social History Smoking Status: Never Smoker Hx Substance Use: No Hx Alcohol Use: No Allergies Coded Allergies: Ciprofloxacin (Verified Adverse Reaction, Unknown, ALTERED MENTAL STATE, AGITATED, 01/12/18) Current Medications Reported Home Medications Medications Dose Route/Sig Max Daily Dose Days Date Category Dose Instructions Deplin 15 ([id number]) 1 Cap Cap 01/12/18 Reported Zofran Odt (Ondansetron HCl) 4 Mg Tab 4 Mg SL Q6H 10/10/17 Rx Roxicodone Ir (Oxycodone HCl) 5 Mg Tab 1-2 Tab PO Q4H PRN 10/10/17 Rx Percocet 7.5MG/325MG (Oxycodone/Acetaminophen) Tab 1-2 Tab PO Q4H PRN 10/10/17 Reported PRN PAIN Ocuvite Preservision (Multivitamins/Minerals) 1 Tab Tab 1 Tab PO BID 09/24/17 Reported Aripiprazole 5 Mg Tab 2.5 Mg PO QAM 09/24/17 Reported Lipitor (Atorvastatin Calcium) 10 Mg Tab 10 Mg PO QAM 09/24/17 Reported Cymbalta (Duloxetine HCl) 20 Mg Cap 20 Mg PO TID 30 03/23/17 Reported Lantus Solostar (Insulin Glargine) 100 Unit/Ml Inj 65 Units SC HS 03/23/17 Reported Klonopin (Clonazepam) 1 Mg Tab 1 Mg PO DAILY PRN 10/20/16 Reported MAY TAKE THIS DOSE AN ADDITION TO THE 1MG TAKEN DAILY IF NEEDED Trazodone (Trazodone HCl) 50 Mg Tab 50 Mg PO HS PRN 10/20/16 Reported Risperidone 0.5 Mg Tab 0.5 Mg PO DAILY PRN 10/19/16 Reported Bupropion HCl Sr (Bupropion HCl) 100 Mg Tabcr 100 Mg PO BID 03/11/16 Reported Clonazepam 1 Mg Tab 1 Mg PO DAILY@1500 03/11/16 Reported Prilosec (Omeprazole) 20 Mg Cap 20 Mg PO QAM 03/11/16 Reported Liothyronine Sodium 5 Mcg Tab 5 Mcg PO QAM 03/11/16 Reported Levothyroxine Sodium 112 Mcg Tab 112 Mcg PO QAM 03/11/16 Reported Novolog Flexpen (Insulin Aspart) 100 Units/Ml Inj 30-50 Units SC TIDM 12/25/15 Reported Centrum Silver Adult 50+ (Multiple Vitamins W/ Minerals) 1 Tab Tab 1 Tab PO HS 01/08/15 Reported Buspirone Hcl 30 Mg Tab 30 Mg PO BID 01/08/15 Reported Vital Signs Weight (Kilograms): 125 Height (Feet): 5 Height (Inches): 9 Physical Exam General Appearance: WD/WN, no apparent distress Respiratory/Chest: Auscultation: breath sounds normal Cardiovascular: Heart Auscultation: RRR Abdomen: Bowel Sounds: normal Inspection & Palpation: soft, non-distended, no tenderness, guarding & rebound Assessment and Plan Assessment: 67 yo CF who presents for Flexible sigmoidoscopy secondary to history of anal cancer s/p radiation, anemia, rectal bleeding and rectal pain. Plan: Proceed with flexible sigmoidoscopy.
--- NOTE | 2018-01-12 09:22 | Discharge Instructions ---
Endoscopy Patient Instructions Date / Procedure(s) Performed Jan 12, 2018. Flex Sig Allergy Information Coded Allergies: Ciprofloxacin (Verified Adverse Reaction, Unknown, ALTERED MENTAL STATE, AGITATED, 01/12/18) Discharge Date / Findings Jan 12, 2018. Radiation proctitis Anal fissure Medication Instructions 1) Start Metamucil 1 tablespoonful in 8 oz glass of water daily. 2) Apply Calmoseptine to affected area 2 to 3 times daily. 3) Diltiazem 2% cream: Apply to affected area 2 to 3 times per day. 4) OK to resume all medications today as prescribed Reported Home Medications Medications Dose Route/Sig Max Daily Dose Days Date Category Dose Instructions Deplin 15 (R-Whbweasjjxej-Odvid) 1 Cap Cap 01/12/18 Reported Zofran Odt (Ondansetron HCl) 4 Mg Tab 4 Mg SL Q6H 10/10/17 Rx Roxicodone Ir (Oxycodone HCl) 5 Mg Tab 1-2 Tab PO Q4H PRN 10/10/17 Rx Percocet 7.5MG/325MG (Oxycodone/Acetaminophen) Tab 1-2 Tab PO Q4H PRN 10/10/17 Reported PRN PAIN Ocuvite Preservision (Multivitamins/Minerals) 1 Tab Tab 1 Tab PO BID 09/24/17 Reported Aripiprazole 5 Mg Tab 2.5 Mg PO QAM 09/24/17 Reported Lipitor (Atorvastatin Calcium) 10 Mg Tab 10 Mg PO QAM 09/24/17 Reported Cymbalta (Duloxetine HCl) 20 Mg Cap 20 Mg PO TID 30 03/23/17 Reported Lantus Solostar (Insulin Glargine) 100 Unit/Ml Inj 65 Units SC HS 03/23/17 Reported Klonopin (Clonazepam) 1 Mg Tab 1 Mg PO DAILY PRN 10/20/16 Reported MAY TAKE THIS DOSE AN ADDITION TO THE 1MG TAKEN DAILY IF NEEDED Trazodone (Trazodone HCl) 50 Mg Tab 50 Mg PO HS PRN 10/20/16 Reported Risperidone 0.5 Mg Tab 0.5 Mg PO DAILY PRN 10/19/16 Reported Bupropion HCl Sr (Bupropion HCl) 100 Mg Tabcr 100 Mg PO BID 03/11/16 Reported Clonazepam 1 Mg Tab 1 Mg PO DAILY@1500 5/4/16 Reported Prilosec (Omeprazole) 20 Mg Cap 20 Mg PO QAM 03/11/16 Reported Liothyronine Sodium 5 Mcg Tab 5 Mcg PO QAM 03/11/16 Reported Levothyroxine Sodium 112 Mcg Tab 112 Mcg PO QAM 03/11/16 Reported Novolog Flexpen (Insulin Aspart) 100 Units/Ml Inj 30-50 Units SC TIDM 12/25/15 Reported Centrum Silver Adult 50+ (Multiple Vitamins W/ Minerals) 1 Tab Tab 1 Tab PO HS 01/08/15 Reported Buspirone Hcl 30 Mg Tab 30 Mg PO BID 01/08/15 Reported Provider Instructions Activity Restrictions - No exercising or heavy lifting for 24 hours. - Do not drink alcohol the day of the procedure. - Do not drive a car or operate machinery until the day after the procedure. - Do not make any important decisions or sign important papers in 24 hours after the procedure. Following Day: - Return to full activity which may include returning to work/school. Diet Start your diet with liquids and light foods (jello, soup, juice, toast). Then eat your usual diet if not nauseated. Treatment For Common After Affects For mild abdominal pain, bloating, or excessive gas: - Rest - Eat lightly - Lie on right side Follow-Up Information Follow-up with DR ANTON as scheduled Anesthesia Information What You Should Know You have had a procedure that required some medicine to reduce anxiety and discomfort. This treatment is called moderate sedation. After receiving the treatment, you may be sleepy, but you will be able to breathe on your own. The effects of the treatment may last for several hours. Follow these instructions along with Activity/Diet recommendations noted above: * Do NOT do anything where dizziness or clumsiness would be dangerous. * Rest quietly at home today, then you can be up and about tomorrow. * Have a responsible person stay with you the rest of today. * You may have had an I.V. today. If so, you may take the dressing off later today. Recommendations Call your doctor if: * Trouble breathing * Continuous vomiting for more than 24 hours * Temperature above 101 degrees * Severe abdominal pain or bloating * Pain not relieved by pain medicine ordered * There is increased drainage or redness from any incision * A large amount of rectal bleeding greater than 2-3 tablespoons. (If you had a polyp/s removed or have hemorrhoids, a small amount of blood - from the rectum is to be expected.) * You have any unanswered questions or concerns. IN THE EVENT OF A SERIOUS EMERGENCY, GO TO THE NEAREST EMERGENCY ROOM Your discharge instructions were prepared by provider Alejandro Leos. Patient Instructions Signature Page Sandy Lunsford Patient (or Guardian) Signature/Date: I have read and understand the instructions given to me by my caregivers. Caregiver/RN/Doctor Signature/Date: The above-named patient and/or guardian has received patient instructions on this date. + Original Patient Signature Page (only) stays with chart. Please make copy for patient.
--- NOTE | 2018-01-12 09:44 | Anesthesiology Progress Note ---
Anesthesia Post Op Note Date & Time Jan 12, 2018 at 09:44 Vital Signs Pain Intensity: 2 Vital Signs Past 12 Hours Date Time Temp Pulse Resp B/P (MAP) Pulse Ox O2 Delivery O2 Flow Rate FiO2 01/12/18 09:38 77 16 102/74 (83) 94 Room Air 01/12/18 09:23 87 16 113/69 (84) 95 Room Air 01/12/18 08:43 36.7 82 20 115/73 (87) 94 Room Air Notes Mental Status: alert / awake / arousable, participated in evaluation Pt Amnestic to Procedure: Yes Nausea / Vomiting: adequately controlled Pain: adequately controlled Airway Patency, RR, SpO2: stable & adequate BP & HR: stable & adequate Hydration State: stable & adequate Anesthetic Complications: no major complications apparent
[2018-01-12 09:53] VITALS: PULSE 75; O2SAT 94
[2018-01-12 10:14] VITALS: BP 110/58
== END | disposition home or self-care (01) ==
LOC: C.GI 07:58
PROVIDERS: ATTEND Internal Medicine
DX: K60.2 Anal fissure, unspecified (principal); K62.5 Hemorrhage of anus and rectum; D64.9 Anemia, unspecified; Z85.048 Personal history of other malignant neoplasm of rectum, rectosigmoid junction, and anus; Z80.0 Family history of malignant neoplasm of digestive organs; Z88.1 Allergy status to other antibiotic agents; E11.9 Type 2 diabetes mellitus without complications; E03.9 Hypothyroidism, unspecified; Z79.4 Long term (current) use of insulin; F32.9 Major depressive disorder, single episode, unspecified; F41.9 Anxiety disorder, unspecified; E66.01 Morbid (severe) obesity due to excess calories

== ENCOUNTER 2018-01-24 15:21 | Emergency (ER) | payer OTHER ==
[~2018-01-24] VITALS: Ht 175.3 cm; Wt 125.0 kg
[~2018-01-24 15:21] MED LIST changes: -ASPI81TA28 PO; -L-ME1CAP; +L-ME1CAP PO; -LIDOCAINE HCL 2% 2 ML VIAL (20MG/ML) ONE; -MELO-83 PO; -NVLGI/PEN SC; +NVLGI/PEN SQ; -PROPOFOL IV EMULSION 10 MG/ML 20 ML VIAL IV ONE; -SODIUM CHLORIDE 0.9% 500ML 500 ML IV ONE
[2018-01-24 15:29] VITALS: Ht 175.3 cm; Wt 125.0 kg
[2018-01-24] MEDS ORDERED: SODIUM CHLORIDE 0.9% 500ML 500 ML IV STA ×2 (16:11→18:32)
--- NOTE | 2018-01-24 16:22 | EMERGENCY ROOM VISIT NOTE ---
History Report prepared by Jyoti: Osmel Marquez Under the Supervision of: Dr. Alicia Henderson M.D. First contact with patient: 16:07 Chief Complaint: DIZZY Stated Complaint: WEAKNESS, DIZZY, BLURRED VISION, EARS Nursing Triage Summary: Patient states, "I've been really dizzy for the past two weeks." Patient recently treated for an ear infection by her PCP, but states she still has pain in her left ear. History of Present Illness The patient is a 67 year old female who presents to the Emergency Room with complaints of persistent dizziness that started 2 weeks ago. She states that she has been lightheaded as well over the past 2 weeks, and then started to get left ear pain that radiates down into her neck and left shoulder. The patient says that she was seen at Dr. Dey's office a week ago, and was given a prescription for Augmentin, but she is still feeling just as poorly as before, or even worse. The patient states that she is still taking the Augmentin. She notes that she has a hard time getting "up and down", and when she was getting out of bed this morning, and got dizzy, so she decided to sit back down on her bed, but she lost her bearings, and missed the bed entirely and ended up on the floor. She did not hit her head on the fall. She denies any headaches, but says that her "head feels scrambled" and her vision gets blurry. The patient notes that the room isn't spinning for her that much. She says that she has been able to speak clearly. She denies any chest pain or palpitations. The patient states that she is still having left ear pain. She says that she had blood work a couple weeks ago and it was completely fine. The patient says that she had a colonoscopy within the past month, and an anal fissure was found. She says that she had a lot of radiation 10 years ago for anal cancer. The patient adds that she takes daily medications for depression, anxiety, and hypothyroidism. She says that she is diabetic. The patient notes no history of heart disease, strokes, or kidney function issues. She does not take any blood pressure medications and her blood pressure is usually fine. The patient states that she has not smoked since she was in college. She says that she drinks occasional alcohol, but has not drank for a few days. Source of History: patient, spouse/significant other Onset: 2 weeks ago Position: other (global) Symptom Intensity: fell onto floor this morning Quality: other (dizziness) Timing: other (persistent) Modifying Factors (Worsening): other (getting up and down) Associated Symptoms: + neck pain (left side into shoulder), No headache, No chest pain (or palpitations) Note: Associated symptoms: Lightheadedness. Head feels scrambled. Blurry vision. Review of Systems See HPI for pertinent positives & negatives. A total of 10 systems reviewed and were otherwise negative. Past Medical & Surgical Medical Problems: (1) Anal cancer (2) Anxiety disorder, unspecified (3) Arthropathy of right knee (4) Constipation (5) Depression (6) Diabetes mellitus (7) Dysthymic disorder (8) Hypothyroidism (9) IDDM (insulin dependent diabetes mellitus) (10) Kidney stones (11) Obesity (BMI 35.0-39.9 without comorbidity) (12) Pain (13) Renal mass, left (14) Renal mass, right Surgical Problems: (1) H/O: hysterectomy (2) History of colostomy (3) History of kidney surgery (4) History of lithotripsy (5) History of renal stent Family History No pertinent family history Social History Smoking Status: Former Smoker Alcohol Use: occasionally Drug Use: none Marital Status: Housing Status: lives with significant other Occupation Status: disabled Current/Historical Medications Scheduled Aripiprazole (Aripiprazole), 2.5 MG PO QAM Atorvastatin (Lipitor), 10 MG PO QAM Bupropion (Wellbutrin-Xl), 300 MG PO DAILY Buspirone Hcl (Buspirone Hcl), 30 MG PO BID Clonazepam (Clonazepam), 1 MG PO DAILY@1500 Docusate Sodium (Docusate Sodium), 100 MG PO DAILY Duloxetine Hcl (Cymbalta), 60 MG PO BID Insulin Aspart (Novolog Flexpen), UNITS SQ TIDM Insulin Glargine (Lantus Solostar), 85 UNITS SC HS [id number]-Zcpjc (Deplin 15), 1 CAP PO DAILY Levothyroxine Sodium (Levothyroxine Sodium), 112 MCG PO QAM Liothyronine Sodium (Liothyronine Sodium), 5 MCG PO QAM Meloxicam (Mobic), 15 MG PO DAILY Multiple Vitamins W/ Minerals (Centrum Silver Adult 50+), 1 TAB PO HS Ocuvite Preservision (Ocuvite Preservision), 1 TAB PO BID Omeprazole (Prilosec), 20 MG PO QAM Prednisone (Prednisone), 40 MG PO DAILY Scheduled PRN Clonazepam (Klonopin), 1 MG PO DAILY PRN for Anxiety Meclizine Hcl (Meclizine Hcl), 25 MG PO TID PRN for Dizziness or Vertigo Oxycodone/Acetaminophen 7.5MG/325MG (Percocet 7.5MG/325MG), 1 TAB PO Q4H PRN for Pain Trazodone Hcl (Trazodone), 50-100 MG PO HS PRN for Sleep Allergies Coded Allergies: Ciprofloxacin (Verified Adverse Reaction, Unknown, ALTERED MENTAL STATE, AGITATED, 01/12/18) Physical Exam Vital Signs Date Time Temp Pulse Resp B/P (MAP) Pulse Ox O2 Delivery O2 Flow Rate FiO2 01/24/18 20:03 81 18 112/78 97 Room Air 01/24/18 18:50 36.6 80 18 123/68 96 Room Air 01/24/18 17:05 76 01/24/18 16:58 78 18 125/76 96 Room Air 01/24/18 16:18 83 113/72 90 116/70 96 110/75 01/24/18 15:29 36.9 81 18 137/84 96 Room Air Physical Exam Vital signs reviewed. Laying: Heart rate of 83. Blood pressure of 113/72. Sitting: Heart rate of 90. Blood pressure of 116/ 70. Standing: Heart rate of 96. Blood pressure of 110/ 75. General: Well-appearing 67 year old female, in no significant distress. HEENT: No scleral icterus, PERRLA, neck supple. No nystagmus appreciated. Atraumatic. Cardiovascular: Regular rate and rhythm, no extra sounds. Pulmonary: Clear to auscultation bilaterally, normal work of breathing. Abdomen: Soft, nontender, nondistended, positive bowel sounds. Musculoskeletal: Atraumatic, no peripheral edema. Neurologic: Patient awake alert and oriented x 3, full strength in all 4 extremities. Cranial nerves 2 through 12 grossly intact. Cerebellar exam was intact. Ambulates without difficulty. Skin: Warm, dry, no rash Medical Decision & Procedures ER Provider Diagnostic Interpretation: Radiology results as stated below per my review and radiologist interpretation: CT HEAD WITHOUT CONTRAST (CT) CLINICAL HISTORY: Dizziness, imbalance, fall. COMPARISON STUDY: No previous studies for comparison. TECHNIQUE: Axial CT of the brain is performed from the vertex to the skull base. IV contrast was not administered for this examination. A dose lowering technique was utilized adhering to the principles of ALARA. CT DOSE: 614.27 mGy.cm FINDINGS: No intra or extra-axial mass lesions are visualized. There is no CT evidence of acute cortical infarction. There is no evidence of midline shift. There is no acute hemorrhage. No calvarial fractures are visualized. There is hyperostosis frontalis interna There is no evidence of pathologic ventricular dilatation. There is no evidence of acute sinusitis IMPRESSION: No acute intracranial findings Electronically signed by: Joni Briones M.D. 01/24/2018 5:17 PM Dictated Date/Time: 01/24/2018 5:15 PM CHEST ONE VIEW PORTABLE CLINICAL HISTORY: Dizziness, trauma. Left shoulder pain. COMPARISON STUDY: 03/23/2017 FINDINGS: The cardiac and mediastinal contours are normal. There is no evidence of focal pulmonary consolidation. There is no evidence of failure. No pleural effusions are visualized.[ IMPRESSION: No active disease in the chest. Electronically signed by: Joni Briones M.D. 01/24/2018 4:31 PM Dictated Date/Time: 01/24/2018 4:30 PM Laboratory Results 01/24/18 16:50 Red Blood Count 4.82, Mean Corpuscular Volume 83.8, Mean Corpuscular Hemoglobin 27.4, Mean Corpuscular Hemoglobin Concent 32.7, Mean Platelet Volume 9.0, Neutrophils (%) (Auto) 68.3, Lymphocytes (%) (Auto) 18.7, Monocytes (%) (Auto) 8.9, Eosinophils (%) (Auto) 3.2, Basophils (%) (Auto) 0.6, Neutrophils # (Auto) 4.89, Lymphocytes # (Auto) 1.34, Monocytes # (Auto) 0.64, Eosinophils # (Auto) 0.23, Basophils # (Auto) 0.04 01/24/18 16:50 Test 01/24/18 16:50 White Blood Count 7.16 K/uL (4.8-10.8) Red Blood Count 4.82 M/uL (4.2-5.4) Hemoglobin 13.2 g/dL (12.0-16.0) Hematocrit 40.4 % (37-47) Mean Corpuscular Volume 83.8 fL (80-100) Mean Corpuscular Hemoglobin 27.4 pg (25-34) Mean Corpuscular Hemoglobin Concent 32.7 g/dl (32-36) Platelet Count 186 K/uL (130-400) Mean Platelet Volume 9.0 fL (7.4-10.4) Neutrophils (%) (Auto) 68.3 % Lymphocytes (%) (Auto) 18.7 % Monocytes (%) (Auto) 8.9 % Eosinophils (%) (Auto) 3.2 % Basophils (%) (Auto) 0.6 % Neutrophils # (Auto) 4.89 K/uL (1.4-6.5) Lymphocytes # (Auto) 1.34 K/uL (1.2-3.4) Monocytes # (Auto) 0.64 K/uL (0.11-0.59) Eosinophils # (Auto) 0.23 K/uL (0-0.5) Basophils # (Auto) 0.04 K/uL (0-0.2) RDW Standard Deviation 43.6 fL (36.4-46.3) RDW Coefficient of Variation 14.3 % (11.5-14.5) Immature Granulocyte % (Auto) 0.3 % Immature Granulocyte # (Auto) 0.02 K/uL (0.00-0.02) Anion Gap 7.0 mmol/L (3-11) Est Creatinine Clear Calc Drug Dose 86.2 ml/min Estimated GFR () 76.2 Estimated GFR (Non- 65.7 BUN/Creatinine Ratio 13.6 (10-20) Calcium Level 9.0 mg/dl (8.5-10.1) Magnesium Level 2.4 mg/dl (1.8-2.4) Total Bilirubin 0.3 mg/dl (0.2-1) Direct Bilirubin < 0.1 mg/dl (0-0.2) Aspartate Amino Transf (AST/SGOT) 23 U/L (15-37) Alanine Aminotransferase (ALT/SGPT) 52 U/L (12-78) Alkaline Phosphatase 110 U/L (45-117) Troponin I < 0.015 ng/ml (0-0.045) Total Protein 6.9 gm/dl (6.4-8.2) Albumin 3.6 gm/dl (3.4-5.0) Thyroid Stimulating Hormone (TSH) 0.666 uIu/ml (0.300-4.500) Laboratory results per my review. Medications Administered Medications (Trade) Dose Ordered Sig/Chong Route Start Time Stop Time Status Last Admin Dose Admin Sodium Chloride 500 ml @ 999 mls/hr Q31M STAT IV 01/24/18 16:11 01/24/18 16:41 DC 01/24/18 16:58 999 MLS/HR Meclizine HCl (Antivert Tab) 25 mg NOW STAT PO 01/24/18 16:28 01/24/18 16:30 DC 01/24/18 17:19 25 MG Ketorolac Tromethamine (Toradol Inj) 30 mg NOW STAT IV 01/24/18 17:25 01/24/18 17:27 DC 01/24/18 17:34 30 MG Lorazepam (Ativan Inj) 1 mg NOW STAT IV 01/24/18 18:28 01/24/18 18:30 DC 01/24/18 18:57 1 MG Sodium Chloride 500 ml @ 999 mls/hr Q31M STAT IV 01/24/18 18:32 01/24/18 19:02 DC 01/24/18 18:57 999 MLS/HR ECG Per My Interpretation Indication: other (dizzy) Rate (beats per minute): 77 Rhythm: normal sinus Findings: no acute ischemic change, no ectopy, other (low voltage, no PVCs, no PACs, QTC of 450) ED Course 1609: Past medical records reviewed. The patient was evaluated in room B4B. A complete history and physical examination was performed. 1611: NSS 500 ml @ 999 mls/hr IV. 1628: Antivert Tab 25 mg PO. 1725: Toradol Inj 30 mg IV. 1828: Ativan Inj 1 mg IV. 1900: Upon reevaluation, the patient appeared to have improvement of her symptoms. I discussed findings with her. She verbalized agreement of the treatment plan. She was discharged home. Medical Decision Differential diagnosis: Etiologies such as benign positional vertigo, dehydration, hypovolemia, anemia, tumor, infection, hypoglycemia, electrolyte abnormalities, cardiac sources, intracerebral event, toxicologic, neurologic, as well as others were entertained. This patient was evaluated and appeared to be in no significant distress. IV access was obtained and laboratory work was drawn. Patient was hydrated with normal saline solution, given p.o. meclizine. CT scan of the head was performed and is negative. TMs are clear bilaterally. Patient complains of pain in the left ear although there is no source for the pain visualized. The patient requested pain medication and was given IV Toradol 30 mg. On reevaluation, the patient was feeling improved however she continued to complain of some dizziness. The patient was given Ativan 1 mg IV. Her blood sugars were noted to be low, she was given p.o. orange juice and a meal tray was ordered. The patient tolerated this well. She is diabetic and the pros and cons of prednisone were discussed. Given the persistence of her symptoms, she will be placed on prednisone 40 mg daily for the next 4 days. She will monitor her glucose carefully and use her sliding scale insulin. She does have meclizine at home. The patient will follow up with her physician this week for reevaluation and return to the ER for worsening of symptoms or any medical concerns. Medication Reconcilliation Current Medication List: was personally reviewed by me Blood Pressure Screening Patient's blood pressure: Normal blood pressure Impression Primary Impression: Vertigo Scribe Attestation The scribe's documentation has been prepared under my direction and personally reviewed by me in its entirety. I confirm that the note above accurately reflects all work, treatment, procedures, and medical decision making performed by me. Departure Information Dispostion Home / Self-Care Prescriptions Prednisone (Prednisone) 20 Mg Tab 40 MG PO DAILY, #8 TAB Prov: Alicia Henderson M.D. 01/24/18 Referrals Moustapha Dey M.D. (PCP) Patient Instructions My [facility] Additional Instructions Diagnosis: Vertigo Drink plenty of clear fluids. Prednisone 40 mg daily for 4 days. Monitor your glucose carefully while you are on prednisone. Watch your diet carefully and minimize carbohydrate intake. Continue meclizine as needed for vertigo. Eat frequent and small meals. Return to the ER for worsening of symptoms or any medical concerns.
[2018-01-24] MEDS ORDERED: MECLIZINE HCL 25 MG TAB PO STA (16:28)
--- NOTE | 2018-01-24 16:32 | DIAGNOSTIC IMAGING REPORT ---
CHEST ONE VIEW PORTABLE CLINICAL HISTORY: Dizziness, trauma. Left shoulder pain. COMPARISON STUDY: 03/23/2017 FINDINGS: The cardiac and mediastinal contours are normal. There is no evidence of focal pulmonary consolidation. There is no evidence of failure. No pleural effusions are visualized.[ IMPRESSION: No active disease in the chest. Electronically signed by: Joni Briones M.D. 01/24/2018 4:31 PM Dictated Date/Time: 01/24/2018 4:30 PM
[2018-01-24] MEDS ORDERED: BUPRTAB51 PO (16:49)
[2018-01-24] MEDS ORDERED: DOCU100C31 PO (16:54)
[2018-01-24] MEDS ORDERED: DULO60CA44 PO (16:56)
[2018-01-24] MEDS ORDERED: MECL1TAB42 PO (16:57)
[2018-01-24] MEDS ORDERED: MELO-84 PO (16:58)
[2018-01-24 17:02] LABS: BASO % 0.6 %; BASO ABS # 0.04 K/uL (0-0.2); EOS % 3.2 %; EOS ABS # 0.23 K/uL (0-0.5); HEMATOCRIT 40.4 % (37-47); HEMOGLOBIN 13.2 g/dL (12.0-16.0); IG# 0.02 K/uL (0.00-0.02); LYMPH % 18.7 %; LYMPH ABS # 1.34 K/uL (1.2-3.4); MEAN CELL VOLUME 83.8 fL (80-100); MEAN CORPUSCULAR HEMOGLOBIN 27.4 pg (25-34); MEAN CORPUSCULAR HGB CONC 32.7 g/dl (32-36); MONO % 8.9 %; MONO ABS # 0.64 K/uL (0.11-0.59); NEUT % 68.3 %; NEUT ABS # 4.89 K/uL (1.4-6.5); PLATELET COUNT 186 K/uL (130-400); RED CELL DISTRIBUTION WIDTH CV 14.3 % (11.5-14.5); RED CELL DISTRIBUTION WIDTH SD 43.6 fL (36.4-46.3); WHITE BLOOD COUNT 7.16 K/uL (4.8-10.8)
--- NOTE | 2018-01-24 17:18 | DIAGNOSTIC IMAGING REPORT ---
CT HEAD WITHOUT CONTRAST (CT) CLINICAL HISTORY: Dizziness, imbalance, fall. COMPARISON STUDY: No previous studies for comparison. TECHNIQUE: Axial CT of the brain is performed from the vertex to the skull base. IV contrast was not administered for this examination. A dose lowering technique was utilized adhering to the principles of ALARA. CT DOSE: 614.27 mGy.cm FINDINGS: No intra or extra-axial mass lesions are visualized. There is no CT evidence of acute cortical infarction. There is no evidence of midline shift. There is no acute hemorrhage. No calvarial fractures are visualized. There is hyperostosis frontalis interna There is no evidence of pathologic ventricular dilatation. There is no evidence of acute sinusitis IMPRESSION: No acute intracranial findings Electronically signed by: Joni Briones M.D. 01/24/2018 5:17 PM Dictated Date/Time: 01/24/2018 5:15 PM
[2018-01-24 17:19] LABS: ALBUMIN 3.6 gm/dl (3.4-5.0); ALT/SGPT 52 U/L (12-78); AST/SGOT 23 U/L (15-37); BLOOD UREA NITROGEN 12 mg/dl (7-18); CARBON DIOXIDE 27 mmol/L (21-32); CREATININE 0.91 mg/dl (0.60-1.20); GLUCOSE 61 mg/dl (70-99); POTASSIUM 4.1 mmol/L (3.5-5.1); SODIUM 140 mmol/L (136-145)
[2018-01-24] MEDS ORDERED: KETOROLAC TROMETHAMINE 30 MG/ML VIAL IV STA (17:25)
[2018-01-24 17:30] LABS: ALKALINE PHOSPHATASE 110 U/L (45-117); TOTAL PROTEIN 6.9 gm/dl (6.4-8.2)
[2018-01-24] MEDS ORDERED: LORAZEPAM 2 MG/ML 1 ML VIAL IV STA (18:28)
[2018-01-24 18:50] VITALS: TEMP 36.6
[2018-01-24] MEDS ORDERED: PRED20TA PO (19:45)
[2018-01-24 20:03] VITALS: BP 112/78; PULSE 81; O2SAT 97
== END 2018-01-24 20:08 | disposition home or self-care (01) ==
LOC: C.EDB 15:22
DX: R42 Dizziness and giddiness (principal); H92.02 Otalgia, left ear; F41.9 Anxiety disorder, unspecified; F32.9 Major depressive disorder, single episode, unspecified; E11.9 Type 2 diabetes mellitus without complications; F34.1 Dysthymic disorder; E03.9 Hypothyroidism, unspecified; Z87.442 Personal history of urinary calculi; E66.9 Obesity, unspecified; Z68.41 Body mass index [BMI] 40.0-44.9, adult; Z90.710 Acquired absence of both cervix and uterus; Z93.3 Colostomy status; Z87.891 Personal history of nicotine dependence; Z79.4 Long term (current) use of insulin; Z79.899 Other long term (current) drug therapy; Z88.1 Allergy status to other antibiotic agents

== ENCOUNTER → 2018-03-02 | Outpatient (CLI) | payer OTHER ==
[~2018-03-02] MED LIST changes: +BUPRTAB51 PO; +DOCU100C31 PO; -DULO-24 PO; +DULO60CA44 PO; +MECL1TAB42 PO; +MELO-84 PO; -ONDA4TAB10 SL; -OXYC1TAB3 PO; +PRED20TA PO; -RISP-99 PO; -WLLSR100 PO
[2018-03-02 16:39] LABS: BASO % 0.4 %; BASO ABS # 0.03 K/uL (0-0.2); EOS % 2.5 %; HEMOGLOBIN 14.6 g/dL (12.0-16.0); IG# 0.02 K/uL (0.00-0.02); LYMPH % 20.7 %; LYMPH ABS # 1.64 K/uL (1.2-3.4); MEAN CELL VOLUME 85.6 fL (80-100); MEAN CORPUSCULAR HEMOGLOBIN 27.8 pg (25-34); MEAN CORPUSCULAR HGB CONC 32.4 g/dl (32-36); MEAN PLATELET VOLUME 9.6 fL (7.4-10.4); MONO ABS # 0.55 K/uL (0.11-0.59); NEUT % 69.1 %; NEUT ABS # 5.47 K/uL (1.4-6.5); PLATELET COUNT 225 K/uL (130-400); RED CELL DISTRIBUTION WIDTH CV 14.5 % (11.5-14.5); RED CELL DISTRIBUTION WIDTH SD 44.7 fL (36.4-46.3); WHITE BLOOD COUNT 7.91 K/uL (4.8-10.8)
[2018-03-02 17:15] LABS: T3 FREE 3.21 pg/ml (2.30-4.20)
[2018-03-02 19:07] LABS: ALT/SGPT 44 U/L (12-78); AST/SGOT 20 U/L (15-37); BLOOD UREA NITROGEN 18 mg/dl (7-18); CALCIUM 9.5 mg/dl (8.5-10.1); CARBON DIOXIDE 29 mmol/L (21-32); CREATININE 1.19 mg/dl (0.60-1.20); GLUCOSE 111 mg/dl (70-99); POTASSIUM 4.3 mmol/L (3.5-5.1); SODIUM 137 mmol/L (136-145)
[2018-03-02 19:17] LABS: TOTAL PROTEIN 7.8 gm/dl (6.4-8.2)
[2018-03-02 19:18] LABS: ALKALINE PHOSPHATASE 112 U/L (45-117)
== END | disposition home or self-care (01) ==
LOC: C.LAB1850 15:04
PROVIDERS: ATTEND Internal Medicine
DX: R42 Dizziness and giddiness (principal); E03.9 Hypothyroidism, unspecified

== ENCOUNTER → 2018-03-21 | Outpatient (CLI) | payer OTHER ==
--- NOTE | 2018-03-21 11:25 | DIAGNOSTIC IMAGING REPORT ---
BRAIN W/O FOR IAC CLINICAL HISTORY: Vertigo. COMPARISON STUDY: Head CT January 24, 2018. TECHNIQUE: Utilizing a 1.5 Shannan magnet and dedicated coil, multiplanar, multiecho imaging of the brain was performed with thin cut imaging through the internal auditory canals. No intravenous contrast was administered. FINDINGS: There are no foci of restricted diffusion. No acute intracranial hemorrhage, midline shift or mass effect is present. Ventricular system is normal. Basilar cisterns are patent. There are no extra-axial collections. Flow-voids for the major intracranial vessels are present. A few small white matter T2 hyperintense foci are noted. No mass is identified within the internal auditory canals although sensitivity is diminished on this noncontrast examination. Semicircular canals are intact. No cerebellopontine angle mass is noted. No intracranial masses identified on this unenhanced exam. Calvarial signal is maintained. Orbits and sinuses are unremarkable. IMPRESSION: 1. No acute intracranial findings. 2. No abnormalities within the internal auditory canals on unenhanced exam. 3. Unremarkable MRI of the brain for age. Electronically signed by: Hilario Vela M.D. 03/21/2018 11:24 AM Dictated Date/Time: 03/21/2018 11:19 AM
== END | disposition home or self-care (01) ==
LOC: C.MRI 10:06
PROVIDERS: ATTEND Internal Medicine
DX: R42 Dizziness and giddiness (principal)

== ENCOUNTER → 2018-06-08 | Outpatient (CLI) | payer OTHER ==
[~2018-06-08] MED LIST changes: +CLON1TAB10 PO; -CLON1TAB3 PO
--- NOTE | 2018-06-08 12:55 | DIAGNOSTIC IMAGING REPORT ---
GASTRIC EMPTYING HISTORY: Gastroparesis K31.84 [id number] COMPARISON: None. TECHNIQUE: Following the oral administration of 1.1 mCi of technetium 99m sulfur colloid in egg sandwich and 8 ounces of water, static abdominal images are obtained anteriorly and posteriorly at 0 minutes, 1 hour, 2 hour, and 4 hour time intervals. Gastric emptying was calculated utilizing the geometric mean method. FINDINGS: There is approximately 74 % activity remaining at the 1 hour time interval (normal is less than 90%), 61 % remaining at the 2 hour time interval (normal is less than 60%), and 23 % activity remaining at the 4 hour time interval (normal is less than 10%). IMPRESSION: Findings consistent with moderate gastric emptying delay. The above report was generated using voice recognition software. It may contain grammatical, syntax or spelling errors. Electronically signed by: Wali Peterson M.D. 06/08/2018 12:54 PM Dictated Date/Time: 06/08/2018 12:52 PM
== END | disposition home or self-care (01) ==
LOC: C.NUCL 08:18
PROVIDERS: ATTEND Physician Assistant
DX: K31.84 Gastroparesis (principal)

== ENCOUNTER 2018-12-26 15:30 | Inpatient (IN) ==
--- NOTE | 2018-12-26 17:33 | History & Physical Report ---
Date of Service December 26, 2018 Assessment & Plan (1) Neutropenic fever: 68 y/o F with PMH HLD, DM II, morbid obesity, depression/anxiety, hypothyroidism, anal cancer 2007, DAVI, GERD/Barett's esophagus presents as a direct admit from [facility], where she was undergoing chemotherapy for endometrial ca, with neutropenic fever. 1) Neutropenic fever -blood cx x2 -started empiric antibiotics vanc/zosyn -cont trend cbc/cmp (assess LFTs, bili, cr/bun) -UA (cx if +), flu swab pending -consult heme/onc 2) Gastroparesis -cont [facility] zofran, omeprazole 3) HLD -cont [facility] atorvastatin 4) Hypothyroidism -cont [facility] synthroid, liothyronine 5) DM -ISS, Lantus 20, CF 20, Carb ratio 7 -target BSG 120-160 -hold other home meds 6) GERD -cont [facility] omeprazole 7) Anxiety/Depression -Cont [facility] Clonazepam, Duloxetine, Buspirone, Buproprion, Aripiprazole 8) Insomnia -cont [facility] trazodone 9) IBS -cont [facility] linaclotide History of Present Illness Primary Care Provider: Moustapha Dey MD 68 y/o F with PMH HLD, DM II, morbid obesity, depression/anxiety, hypothyroidism , anal cancer 2007, DAVI, GERD/Barett's esophagus presents as a direct admit from [facility]. Pt was recently started on chemotherapy 2 weeks ago after being diagnosed with endometrial cancer earlier in the year in November. Labs at Infusion Center showed low WBCs and neutrophils along with low sugar (43 ). Pt notes home temps of 102.3 F along with chills and gastroparesis like symptoms, which she has had in the past for a few days. No urinary or respiratory sxs. No noted diarrhea, skin rashes. Pt otherwise denies any other acute concerns or complaints at present. Fam Hx- Mom- passed, uterine ca; father- passed, pancreatic ca; brother- living , brain tumor and kidney ca Social- denies alcohol, tobacco, other illicit drug use Surg Hx- hysterectomy Nov 2018, salpingectomy 2014, Partial L nephrectomy 2014 Allergies Allergy/AdvReac Type Severity Reaction Status Date / Time ciprofloxacin AdvReac Intermediate ALTERED Verified 12/08/18 09:43 MENTAL STATE,AGITATED Cipro AdvReac Unknown ALTERED Verified 01/12/18 08:29 MENTAL STATE,AGITATED Home Medications Home Medications Medication Instructions Recorded Confirmed Type aripiprazole 2.5 mg PO QAM 09/14/18 12/08/18 History atorvastatin 10 mg PO QAM 09/14/18 12/08/18 History bupropion HCl 300 mg PO QAM 09/14/18 12/08/18 History buspirone 20 mg PO TID 09/14/18 12/08/18 History cholecalciferol (vitamin D3) 3,000 unit PO QPM 09/14/18 12/08/18 History [Vitamin D3] clonazepam 1 mg PO HS 09/14/18 12/08/18 History duloxetine 60 mg PO BID 09/14/18 12/08/18 History insulin aspart U-100 [Novolog 1 dose SUBCUT QAM 09/14/18 12/08/18 History Flexpen U-100 Insulin] levomefolate-algal oil [Deplin 15 mg PO QAM 09/14/18 12/08/18 History (algal oil)] levothyroxine 112 mcg PO QAM 09/14/18 12/08/18 History linaclotide 290 mg PO QAM 09/14/18 12/08/18 History liothyronine 5 mcg PO QAM 09/14/18 12/08/18 History liraglutide 1.8 mg SUBCUT QAM 09/14/18 12/08/18 History ksuyjwus-coe-MI-lycopen-lutein 1 tab PO HS 09/14/18 12/08/18 History [Centrum Silver] omeprazole 40 mg PO BID 09/14/18 12/08/18 History sucralfate 1 g PO UD 09/14/18 12/08/18 History trazodone 25 mg PO BID 09/14/18 12/08/18 History trazodone 100 mg PO HS 09/14/18 12/08/18 History hydrocortisone acetate [Anusol-HC] 25 mg NC HS PRN 09/21/18 12/08/18 History insulin glargine [Lantus U-100 50 unit SUBCUT HS 09/21/18 12/08/18 History Insulin] ondansetron HCl [Zofran] 4 mg PO TID PRN 12/06/18 12/08/18 History oxycodone 5 mg PO Q4H PRN 12/06/18 12/08/18 History quetiapine [Seroquel] 25 mg PO TID PRN 12/06/18 12/08/18 History vit A,C and Y-dfzpyb-xhklmnrr 1 tab PO BID 12/06/18 12/08/18 History [Ocuvite with Lutein] Past Med/Surg History Family History Brother Family history of diabetes mellitus Social History Current Living Situation: Spouse Other Information That Helps Us Care for You: No Feels Safe at Home: Yes Safety Concerns: Feels Safe At This Time Smoking Status: Never smoker Do You Dip or Chew Tobacco: No Second Hand Exposure: No Hx Alcohol Use: No Hx Substance Use: No Beliefs That Will Affect Care: None Preferred Language: [place] Communication Ability: Effective Director Drug Required: No Review of Systems All systems reviewed & are unremarkable except as noted in HPI & below Physical Exam 2 Constitutional: + obese Eyes: PERRL, conjunctivae normal, anicteric sclerae ENMT: external ear and nose normal, oropharynx normal Respiratory: normal respiratory effort, lungs clear to auscultation Cardiovascular: RRR, no murmur, no edema Gastrointestinal (Abdomen): normal bowel sounds, soft, nontender, no hepatosplenomegaly Skin: no rashes, warm and dry Psychiatric: A+Ox3, euthymic affect Lymphatic: no calf tenderness, no LE edema Results & Data Laboratory Results Laboratory Results - last 24 hr 12/26/18 12/26/18 18:25 18:31 Sodium 139 Potassium 3.8 Chloride 107 Carbon Dioxide 27 Anion Gap 5.0 BUN 10 Creatinine 1.04 Est Cr Clr Drug Dosing 71.9 Est GFR ( Amer) 64.4 Est GFR (Non-Af Amer) 55.6 BUN/Creatinine Ratio 9.6 L Glucose 99 Calcium 8.1 L Total Bilirubin 0.5 AST 24 ALT 51 Alkaline Phosphatase 105 Total Protein 6.0 L Albumin 2.7 L Globulin 3.3 Albumin/Globulin Ratio 0.8 L Urine Color Yellow Urine Appearance Clear Urine pH 6.5 Ur Specific [place] 1.007 Urine Protein Negative Urine Glucose (UA) Negative Urine Ketones Negative Urine Blood Negative Urine Nitrite Negative Urine Bilirubin Negative Urine Urobilinogen Negative Ur Leukocyte Esterase Negative Supervising Physician Co-Signing Physician Notes I personally examined the patient and verified all fish points of history and exam, discussed case, and agree with decision making with Dr Michael fever/rigors yesterday, neutropenic today. did have diarrhea over the weekend none today. no other focal complaints. no breathing issues/sputum. no ongoing diarrhea. no rashes. no dysuria. vitals noted nad breathing unlabored no pallor or icterus no areas of erythema no focal neuro deficits neutropenic fever - flu swab since viral seems most likely; w rigors bacteremia concerning as well; follow for symptoms/serial exams. empiric vanco/zosyn, supportive care. heme/onc ?colony stimulating factor Resident Activity Tracking Resident Involvement: Resident Care Provided Care Provided: Adult Hospital Medicine
[2018-12-26] MEDS ORDERED: ONDANSETRON INJ 2 MG/ML 2 ML VIAL IV PRN (17:54)
[2018-12-26] MEDS ORDERED: ALUMINUM/MAGNESIUM SUSP 30 ML UDC PO PRN (17:54)
[2018-12-26] MEDS ORDERED: MAGNESIUM HYDROXIDE SUSP 30 ML UDC PO PRN (17:54)
[2018-12-26] MEDS ORDERED: ACETAMINOPHEN 325 MG TAB PO PRN (17:54)
[2018-12-26] MEDS ORDERED: GLUCOSE 10 TABS/TUBE PO PRN (18:11)
[2018-12-26] MEDS ORDERED: GLUCOSE 40% GEL 15 GM TUBE PO PRN (18:11)
[2018-12-26] MEDS ORDERED: DEXTROSE 50% 50 ML SYRINGE IV PRN (18:11)
[2018-12-26] MEDS ORDERED: VANCOMYCIN CONSULT ACTIVE PRN (18:11)
[2018-12-26] MEDS ORDERED: CARBOHYDRATES FOR HYPOGLYCEMIA PO PRN (18:11)
[2018-12-26] MEDS ORDERED: GLUCAGON FOR INJ 1 MG VIAL SQ PRN (18:11)
[2018-12-26] MEDS ORDERED: VANCOMYCIN HCL 1,000 MG in SODIUM CHLORIDE 0.9% 250 ML IV SCH (18:15)
[2018-12-26] MEDS ORDERED: PIPERACILL/TAZOBAC CONSULT ACTIVE PRN (18:16)
[2018-12-26] MEDS ORDERED: TAZOBACTAM IV SCH (18:30)
[2018-12-26] MEDS ORDERED: DEXTROSE 5% IV SCH (18:30)
[2018-12-26] MEDS ORDERED: PIPERACILLIN IV SCH (18:30)
[2018-12-26 18:53] LABS: Albumin Level 2.7 gm/dl (3.4-5.0); BUN Creatinine Ratio 9.6 (10-20); Calcium 8.1 mg/dl (8.5-10.1); Creatinine Clr Calc Pharmacy 71.9 ml/min; Est GFR (African American) 64.4; Est GFR (Non-African American) 55.6; Potassium 3.8 mmol/L (3.5-5.1)
[2018-12-26 18:56] LABS: Albumin Globulin Ratio 0.8 (0.9-2); Bilirubin,Total 0.5 mg/dl (0.2-1); Globulin 3.3 gm/dl (2.5-4.0)
[2018-12-26] MEDS ORDERED: VANCOMYCIN HCL 2,250 MG in SODIUM CHLORIDE 0.9% 500 ML IV ONE (19:00)
[2018-12-26] MEDS ORDERED: PIPERACILLIN/TAZOBACTAM 4.5 GM in DEXTROSE 5% 100 ML IV ONE (19:00)
[2018-12-26 19:01] LABS: Appearance Urine Clear (Clear); Bilirubin Urine Negative (Negative); Blood Urine Negative (Negative); Color Urine Yellow; Glucose Urine UA Negative (Negative); Ketones Urine Negative (Negative); Leukocyte Esterase Urine Negative (Negative); Nitrite Urine Negative (Negative); Protein Urine Negative (Negative); Specific Gravity Urine 1.007 (1.000-1.030); Urobilinogen Urine Negative (Negative); pH Urine 6.5 (4.5-7.5)
[2018-12-26] MEDS ORDERED: clonazePAM 1 MG TAB PO PRN (19:31)
[2018-12-26] MEDS ORDERED: QUETIAPINE FUMARATE 25 MG TABLET PO PRN (19:36)
[2018-12-26] MEDS ORDERED: ONDANSETRON 4 MG TAB PO PRN (19:36)
[2018-12-26 19:46] LABS: Influenza A virus by PCR Neg for Influ A (Neg); Influenza B virus by PCR Neg for Influ B (Neg)
[2018-12-26 19:51] LABS: Ovalocytes 1+; Toxic Granulation 1+
[2018-12-26 19:54] LABS: ALC (manual) 1.19 K/uL (1.2-3.4); Basophils % (manual) 3.5 %; Eosinophils # (manual) 0.25 K/uL (0-0.5); Eosinophils % (manual) 8.7 %; Hematocrit (blood only) 33.6 % (37-47); Lymphocytes # (manual) 1.19 K/uL (1.2-3.4); Lymphocytes % (manual) 41.7 %; Mean Corpuscular Hgb Conc 32.7 g/dL (32-36); Mean Corpuscular Volume 82.8 fL (80-100); Mean Platelet Volume 9.4 fL (7.4-10.4); Metamyelocytes # (manual) 0.03 K/uL (0-0); Metamyelocytes % (manual) 0.9 %; Monocytes # (manual) 0.67 K/uL (0.11-0.59); Monocytes % (manual) 23.5 %; Neutrophils % (manual) 21.7 %; Platelet Count 164 K/uL (130-400); RDW Coefficient of Variation 14.2 % (11.5-14.5); RDW Standard Deviation 42.9 fL (36.4-46.3); Red Blood Count 4.06 M/uL (4.2-5.4); White Blood Count 2.86 K/uL (4.8-10.8)
[2018-12-26] MEDS: INSULIN ASPART 100 UNITS/ML 3 ML PEN SC SCH (20:35)
[2018-12-26] MEDS: PANTOprazole 40 MG TAB PO SCH (21:21)
[2018-12-26] MEDS: PROCHLORPERAZINE MALEATE 5 MG TAB PO SCH (21:21)
[2018-12-26] MEDS: DULOXETINE HCL 60 MG CAP PO SCH (21:21)
[2018-12-26] MEDS: INSULIN GLARGINE SOLOSTAR 100 UNITS/ML 3 ML PEN SC SCH (21:23)
[2018-12-26] MEDS: TRAZODONE HCL 100 MG TAB PO PRN (22:33)
[2018-12-26] MEDS: PIPERACILLIN/TAZOBACTAM 4.5 GM in DEXTROSE 5% 100 ML IV SCH (23:50)
[2018-12-27] MEDS ORDERED: HEPARIN 100 UNIT/ML 5ML FLUSH FLUSH PRN (01:03)
[2018-12-27] MEDS: VANCOMYCIN HCL 1,250 MG in SODIUM CHLORIDE 0.9% 250 ML IV SCH ×2 (05:48→18:39)
[2018-12-27] MEDS: LEVOTHYROXINE SODIUM 112 MCG TABLET PO SCH (05:49)
[2018-12-27 06:47] LABS: Hematocrit (blood only) 34.6 % (37-47); Hemoglobin 11.3 g/dL (12.0-16.0); Mean Corpuscular Hgb Conc 32.7 g/dL (32-36); Mean Corpuscular Volume 83.2 fL (80-100); Platelet Count 172 K/uL (130-400); RDW Coefficient of Variation 14.2 % (11.5-14.5); RDW Standard Deviation 42.9 fL (36.4-46.3); Red Blood Count 4.16 M/uL (4.2-5.4)
[2018-12-27 06:52] LABS: Albumin Level 2.6 gm/dl (3.4-5.0); BUN Creatinine Ratio 6.8 (10-20); Calcium 8.3 mg/dl (8.5-10.1); Creatinine Clr Calc Pharmacy 71.9 ml/min; Est GFR (African American) 64.4; Est GFR (Non-African American) 55.6; Potassium 3.6 mmol/L (3.5-5.1)
[2018-12-27 06:54] LABS: Albumin Globulin Ratio 0.8 (0.9-2); Bilirubin,Total 0.5 mg/dl (0.2-1); Globulin 3.3 gm/dl (2.5-4.0); Total Protein 5.9 gm/dl (6.4-8.2)
[2018-12-27 07:08] LABS: ALC (manual) 1.15 K/uL (1.2-3.4); Basophils # (manual) 0.03 K/uL (0-0.2); Basophils % (manual) 0.9 %; Dohle Bodies 1+; Echinocytes 1+; Eosinophils # (manual) 0.38 K/uL (0-0.5); Eosinophils % (manual) 10.6 %; Giant Platelets 1+; Lymphocytes # (manual) 1.15 K/uL (1.2-3.4); Lymphocytes % (manual) 31.9 %; Metamyelocytes # (manual) 0.06 K/uL (0-0); Metamyelocytes % (manual) 1.8 %; Monocytes # (manual) 0.64 K/uL (0.11-0.59); Monocytes % (manual) 17.7 %; Myelocytes # (manual) 0.03 K/uL (0-0); Myelocytes % (manual) 0.9 %; Neutrophils % (manual) 36.2 %; Ovalocytes 1+; Toxic Granulation 1+
[2018-12-27] MEDS: ATORVASTATIN 10 MG TAB PO SCH (07:47)
[2018-12-27] MEDS: buPROPion HCl 100 MG TABLET PO SCH (07:47)
[2018-12-27] MEDS: DULOXETINE HCL 60 MG CAP PO SCH ×2 (07:47→21:07)
[2018-12-27] MEDS: LIOTHYRONINE SODIUM 5 MCG TAB PO SCH (07:47)
[2018-12-27] MEDS: PANTOprazole 40 MG TAB PO SCH ×2 (07:47→21:06)
[2018-12-27] MEDS: ARIPiprazole 5 MG TAB PO SCH (07:47)
[2018-12-27] MEDS: PIPERACILLIN/TAZOBACTAM 4.5 GM in DEXTROSE 5% 100 ML IV SCH ×3 (08:40→23:59)
[2018-12-27] MEDS: INSULIN GLARGINE SOLOSTAR 100 UNITS/ML 3 ML PEN SC SCH ×2 (08:42→21:07)
[2018-12-27] MEDS: INSULIN ASPART 100 UNITS/ML 3 ML PEN SC SCH ×4 (08:42→21:08)
--- NOTE | 2018-12-27 09:51 | Family Medicine Progress Note ---
Date of Service December 27, 2018 Assessment & Plan (1) Neutropenic fever: 68 y/o F with PMH HLD, DM II, morbid obesity, depression/anxiety, hypothyroidism, anal cancer 2007, DAVI, GERD/Barett's esophagus presents as a direct admit from [facility], where she was undergoing chemotherapy for endometrial ca, with neutropenic fever. 1) Neutropenic fever -blood cx x2 pending -cont empiric antibiotics with vanc/zosyn in interim -cont trend cbc w/diff/cmp , vitals -UA , flu swab negative 2) Gastroparesis -cont [facility] zofran, omeprazole 3) HLD -cont [facility] atorvastatin 4) Hypothyroidism -cont [facility] synthroid, liothyronine 5) DM -ISS, Lantus 20, CF 20, Carb ratio 7 -target BSG 120-160 -hold other home meds 6) GERD -cont [facility] omeprazole 7) Anxiety/Depression -Cont [facility] Clonazepam, Duloxetine, Buspirone, Buproprion, Aripiprazole 8) Insomnia -cont [facility] trazodone 9) IBS -cont [facility] linaclotide 10) DAVI -pt to use home CPAP DNR DVT Prophylaxis: Heparin Dispo: Cont on med/surg, pending blood cx Supervising Physician Co-Signing Physician Notes I personally examined the patient and verified all fish points of history and exam, discussed case, and agree with decision making with Dr Michael Feeling good overall, no respiratory symptoms, no urinary symptoms, no fevers chills or sweats. vitals noted nad breathing unlabored no pallor or icterus no areas of erythema no focal neuro deficits neutropenic fever -workup thus far reassuring. No longer febrile. Continue empiric antibiotics. Hopefully stable for home by tomorrow. Subjective 68 y/o F found in bed this AM in NAD. Pt reports no acute overnight events. Denies diarrhea, fever, chills, dysuria, skin rashes, pulmonary issues. Tolerating PO intake. No issues with voiding or ambulation. Pt has no other acute concerns or complaints at present. Review of Systems All systems reviewed & are unremarkable except as noted in HPI & below Physical Exam 2 Vital Signs (Past 24 Hours): Last Vital Signs Temp 36.9 C 12/27/18 08:13 Pulse 89 12/27/18 08:13 Resp 16 12/27/18 08:13 BP 136/81 12/27/18 08:13 Pulse Ox 97 12/27/18 08:13 Constitutional: WD/WN, vitals as above Eyes: PERRL, conjunctivae normal, anicteric sclerae ENMT: external ear and nose normal, oropharynx normal Respiratory: normal respiratory effort, lungs clear to auscultation Cardiovascular: RRR, no murmur, no edema Gastrointestinal (Abdomen): normal bowel sounds, soft, nontender, no hepatosplenomegaly Skin: no rashes, warm and dry Psychiatric: A+Ox3, euthymic affect Results & Data Laboratory Results Laboratory Results - last 24 hr 12/26/18 12/26/18 12/26/18 18:25 18:25 18:31 WBC 2.86 L RBC 4.06 L Hgb 11.0 L Hct 33.6 L MCV 82.8 MCH 27.1 MCHC 32.7 RDW Std Deviation 42.9 RDW Coeff of Leigha 14.2 Plt Count 164 MPV 9.4 Neutrophils % (Manual) 21.7 Lymphocytes % (Manual) 41.7 Monocytes % (Manual) 23.5 Eosinophils % (Manual) 8.7 Basophils % (Manual) 3.5 Metamyelocytes % (Man) 0.9 Myelocytes % (Man) Neutrophils # (Manual) 0.62 L Total Absolute Neuts 0.62 L* Lymphocytes # (Manual) 1.19 L Total Abs Lymphocytes 1.19 L Monocytes # (Manual) 0.67 H Eosinophils # (Manual) 0.25 Basophils # (Manual) 0.10 Metamyelocytes # (Man) 0.03 H Myelocytes # (Manual) Toxic Granulation 1+ Dohle Bodies Giant Platelets Ovalocytes 1+ Echinocytes Sodium 139 Potassium 3.8 Chloride 107 Carbon Dioxide 27 Anion Gap 5.0 BUN 10 Creatinine 1.04 Est Cr Clr Drug Dosing 71.9 Est GFR ( Amer) 64.4 Est GFR (Non-Af Amer) 55.6 BUN/Creatinine Ratio 9.6 L Glucose 99 POC Glucose Calcium 8.1 L Total Bilirubin 0.5 AST 24 ALT 51 Alkaline Phosphatase 105 Total Protein 6.0 L Albumin 2.7 L Globulin 3.3 Albumin/Globulin Ratio 0.8 L Urine Color Yellow Urine Appearance Clear Urine pH 6.5 Ur Specific [place] 1.007 Urine Protein Negative Urine Glucose (UA) Negative Urine Ketones Negative Urine Blood Negative Urine Nitrite Negative Urine Bilirubin Negative Urine Urobilinogen Negative Ur Leukocyte Esterase Negative Influenza Type A (PCR) Influenza Type B (PCR) 12/26/18 12/26/18 12/27/18 19:00 20:12 05:43 WBC 3.60 L RBC 4.16 L Hgb 11.3 L Hct 34.6 L MCV 83.2 MCH 27.2 MCHC 32.7 RDW Std Deviation 42.9 RDW Coeff of Leigha 14.2 Plt Count 172 MPV 9.0 Neutrophils % (Manual) 36.2 Lymphocytes % (Manual) 31.9 Monocytes % (Manual) 17.7 Eosinophils % (Manual) 10.6 Basophils % (Manual) 0.9 Metamyelocytes % (Man) 1.8 Myelocytes % (Man) 0.9 Neutrophils # (Manual) 1.30 L Total Absolute Neuts 1.30 L Lymphocytes # (Manual) 1.15 L Total Abs Lymphocytes 1.15 L Monocytes # (Manual) 0.64 H Eosinophils # (Manual) 0.38 Basophils # (Manual) 0.03 Metamyelocytes # (Man) 0.06 H Myelocytes # (Manual) 0.03 H Toxic Granulation 1+ Dohle Bodies 1+ Giant Platelets 1+ Ovalocytes 1+ Echinocytes 1+ Sodium Potassium Chloride Carbon Dioxide Anion Gap BUN Creatinine Est Cr Clr Drug Dosing Est GFR ( Amer) Est GFR (Non-Af Amer) BUN/Creatinine Ratio Glucose POC Glucose 148 H Calcium Total Bilirubin AST ALT Alkaline Phosphatase Total Protein Albumin Globulin Albumin/Globulin Ratio Urine Color Urine Appearance Urine pH Ur Specific [place] Urine Protein Urine Glucose (UA) Urine Ketones Urine Blood Urine Nitrite Urine Bilirubin Urine Urobilinogen Ur Leukocyte Esterase Influenza Type A (PCR) Neg for Influ A Influenza Type B (PCR) Neg for Influ B 12/27/18 12/27/18 05:43 07:41 WBC RBC Hgb Hct MCV MCH MCHC RDW Std Deviation RDW Coeff of Leigha Plt Count MPV Neutrophils % (Manual) Lymphocytes % (Manual) Monocytes % (Manual) Eosinophils % (Manual) Basophils % (Manual) Metamyelocytes % (Man) Myelocytes % (Man) Neutrophils # (Manual) Total Absolute Neuts Lymphocytes # (Manual) Total Abs Lymphocytes Monocytes # (Manual) Eosinophils # (Manual) Basophils # (Manual) Metamyelocytes # (Man) Myelocytes # (Manual) Toxic Granulation Dohle Bodies Giant Platelets Ovalocytes Echinocytes Sodium 138 Potassium 3.6 Chloride 107 Carbon Dioxide 25 Anion Gap 6.0 BUN 7 Creatinine 1.04 Est Cr Clr Drug Dosing 71.9 Est GFR ( Amer) 64.4 Est GFR (Non-Af Amer) 55.6 BUN/Creatinine Ratio 6.8 L Glucose 82 POC Glucose 91 Calcium 8.3 L Total Bilirubin 0.5 AST 24 ALT 52 Alkaline Phosphatase 96 Total Protein 5.9 L Albumin 2.6 L Globulin 3.3 Albumin/Globulin Ratio 0.8 L Urine Color Urine Appearance Urine pH Ur Specific [place] Urine Protein Urine Glucose (UA) Urine Ketones Urine Blood Urine Nitrite Urine Bilirubin Urine Urobilinogen Ur Leukocyte Esterase Influenza Type A (PCR) Influenza Type B (PCR) Medications Administered Current Inpatient Medications Acetaminophen (Tylenol) 650 mg PO Q4H PRN PRN Reason: pain/fever Stop: 01/25/19 17:53 Al Hydrox/Mg Hydrox/Simethicone (Maalox) 30 ml PO Q6H PRN PRN Reason: Dyspepsia Stop: 01/25/19 17:53 Aripiprazole (Abilify) 2.5 mg PO QAM [facility] Stop: 01/26/19 08:59 Last Admin: 12/27/18 07:47 Dose: 2.5 mg Atorvastatin Calcium (Lipitor) 10 mg PO QAM [facility] Stop: 01/26/19 08:59 Last Admin: 12/27/18 07:47 Dose: 10 mg Bupropion HCl (Wellbutrin) 300 mg PO QAM [facility] Stop: 01/26/19 08:59 Last Admin: 12/27/18 07:47 Dose: 300 mg Clonazepam (Klonopin) 1 mg PO HS PRN PRN Reason: Anxiety Stop: 01/25/19 19:30 Last Admin: 12/26/18 21:26 Dose: 1 mg Dextrose (Dextrose 50%) 25 - 50 ml IV UD PRN; Protocol PRN Reason: Hypoglycemia Protocol Stop: 01/25/19 18:10 Duloxetine HCl (Cymbalta) 60 mg PO BID [facility] Stop: 01/25/19 20:59 Last Admin: 12/27/18 07:47 Dose: 60 mg Glucagon (Glucagen) 1 mg SQ UD PRN; Protocol PRN Reason: Hypoglycemia Protocol Stop: 01/25/19 18:10 Glucose (Glucose 40%) 15 - 30 gm PO UD PRN; Protocol PRN Reason: Hypoglycemia Protocol Stop: 01/25/19 18:10 Glucose (Dex4 Glucose) 4 - 8 tabs PO UD PRN; Protocol PRN Reason: Hypoglycemia Protocol Stop: 01/25/19 18:10 Heparin Sodium (Porcine) (Heparin Sod 100 Unit/Ml Flush) 5 ml FLUSH PRN PRN PRN Reason: Flush Stop: 01/26/19 01:14 Piperacillin Sod/Tazobactam (Sod 4.5 gm/ Dextrose) 120 mls @ 30 mls/hr IV Q8H FRANCY; Protocol Stop: 12/29/18 00:00 Last Admin: 12/27/18 08:40 Dose: 30 mls/hr Vancomycin HCl 1,250 mg/ (Sodium Chloride) 275 mls @ 125 mls/hr IV Q12H FRANCY Stop: 12/28/18 17:59 Last Infusion: 12/27/18 08:00 Dose: Infused Insulin Aspart (Novolog Flexpen) 0 units SC ACHS [facility] Stop: 01/25/19 20:59 Last Admin: 12/27/18 08:42 Dose: Not Given Insulin Glargine (Lantus Solostar Pen) 20 units SC Q12 FRANCY Stop: 01/25/19 20:59 Last Admin: 12/27/18 08:42 Dose: 20 units Levothyroxine Sodium (Synthroid) 112 mcg PO DAILYBB [facility] Stop: 01/26/19 06:29 Last Admin: 12/27/18 05:49 Dose: 112 mcg Liothyronine Sodium (Cytomel) 5 mcg PO QAM [facility] Stop: 01/26/19 08:59 Last Admin: 12/27/18 07:47 Dose: 5 mcg Magnesium Hydroxide (Milk Of Magnesia) 30 ml PO Q6H PRN PRN Reason: Constipation Stop: 01/25/19 17:53 Miscellaneous (Carbohydrates For Hypoglycemia) 15 - 30 gm PO UD PRN PRN Reason: Hypoglycemia Treatment Stop: 01/25/19 18:10 Miscellaneous Information (Consult) 1 ea N/A UD PRN PRN Reason: Consult Stop: 01/25/19 18:15 Miscellaneous Information (Consult) 1 ea N/A UD PRN PRN Reason: Consult Stop: 01/25/19 18:10 Ondansetron HCl (Zofran) 4 mg IV Q6H PRN PRN Reason: Nausea Stop: 01/25/19 17:53 Ondansetron HCl (Zofran) 4 mg PO Q8H PRN PRN Reason: Nausea Stop: 01/25/19 19:35 Pantoprazole Sodium (Protonix) 40 mg PO BID FRANCY Stop: 01/25/19 20:59 Last Admin: 12/27/18 07:47 Dose: 40 mg Polyethylene Glycol (Miralax Powder Packet) 17 gm PO DAILY PRN PRN Reason: Constipation Stop: 01/25/19 17:53 Prochlorperazine (Compazine) 5 mg PO QPM FRANCY Stop: 01/25/19 20:59 Last Admin: 12/26/18 21:21 Dose: 5 mg Quetiapine Fumarate (Seroquel) 25 mg PO TID PRN PRN Reason: Anxiety Stop: 01/25/19 19:35 Trazodone HCl (Desyrel) 100 mg PO HS PRN PRN Reason: Anxiety/Insomnia Stop: 01/25/19 20:59 Last Admin: 12/26/18 22:33 Dose: 100 mg Resident Activity Tracking Resident Involvement: Resident Care Provided Care Provided: Adult Hospital Medicine
[2018-12-27] MEDS: POLYETHYLENE (MIRALAX) 17 GM PACK PO PRN (12:55)
[2018-12-27 15:57] VITALS: TEMP 98.2
[2018-12-27] MEDS: PROCHLORPERAZINE MALEATE 5 MG TAB PO SCH (18:39)
[2018-12-27] MEDS: TRAZODONE HCL 100 MG TAB PO PRN (22:14)
[2018-12-28 05:53] LABS: Hematocrit (blood only) 32.6 % (37-47); Hemoglobin 10.7 g/dL (12.0-16.0); Mean Corpuscular Hgb Conc 32.8 g/dL (32-36); Mean Corpuscular Volume 82.7 fL (80-100); Mean Platelet Volume 9.3 fL (7.4-10.4); Nucleated RBC # (auto) 0.02 K/uL (0-0); Nucleated RBC % (auto) 0.5 %; Platelet Count 195 K/uL (130-400); RDW Coefficient of Variation 14.4 % (11.5-14.5); RDW Standard Deviation 43.3 fL (36.4-46.3); Red Blood Count 3.94 M/uL (4.2-5.4); White Blood Count 3.65 K/uL (4.8-10.8)
[2018-12-28 06:25] LABS: Albumin Level 2.6 gm/dl (3.4-5.0); BUN Creatinine Ratio 8.1 (10-20); Calcium 8.3 mg/dl (8.5-10.1); Creatinine Clr Calc Pharmacy 68.6 ml/min; Est GFR (African American) 60.8; Est GFR (Non-African American) 52.5; Potassium 3.6 mmol/L (3.5-5.1)
[2018-12-28] MEDS: VANCOMYCIN HCL 1,250 MG in SODIUM CHLORIDE 0.9% 250 ML IV SCH (06:26)
[2018-12-28 06:27] LABS: Albumin Globulin Ratio 0.8 (0.9-2); Bilirubin,Total 0.4 mg/dl (0.2-1); Globulin 3.2 gm/dl (2.5-4.0); Total Protein 5.8 gm/dl (6.4-8.2)
[2018-12-28] MEDS: LEVOTHYROXINE SODIUM 112 MCG TABLET PO SCH (06:27)
[2018-12-28 07:07] LABS: Basophils # (auto) 0.13 K/uL (0-0.2); Basophils % (auto) 3.6 %; Eosinophils # (auto) 0.15 K/uL (0-0.5); Eosinophils % (auto) 4.1 %; Immature Granulocytes # (auto) 0.29 K/uL (0.00-0.02); Immature Granulocytes % (auto) 7.9 %; Lymphocytes # (auto) 1.14 K/uL (1.2-3.4); Lymphocytes % (auto) 31.2 %; Monocytes % (auto) 24.7 %; Neutrophils # (auto) 1.04 K/uL (1.4-6.5); Neutrophils % (auto) 28.5 %; Ovalocytes 1+; Toxic Granulation 3+
[2018-12-28] MEDS: ARIPiprazole 5 MG TAB PO SCH (07:39)
[2018-12-28] MEDS: LIOTHYRONINE SODIUM 5 MCG TAB PO SCH (07:39)
[2018-12-28] MEDS: ATORVASTATIN 10 MG TAB PO SCH (07:40)
[2018-12-28] MEDS: DULOXETINE HCL 60 MG CAP PO SCH (07:40)
[2018-12-28] MEDS: buPROPion HCl 100 MG TABLET PO SCH (07:40)
[2018-12-28] MEDS: INSULIN ASPART 100 UNITS/ML 3 ML PEN SC SCH (07:40)
[2018-12-28] MEDS: PANTOprazole 40 MG TAB PO SCH (07:40)
[2018-12-28] MEDS: PIPERACILLIN/TAZOBACTAM 4.5 GM in DEXTROSE 5% 100 ML IV SCH (07:41)
[2018-12-28 07:47] VITALS: BP 126/81; PULSE 77; O2SAT 98
[2018-12-28] MEDS: POLYETHYLENE (MIRALAX) 17 GM PACK PO PRN (08:50)
[2018-12-28] MEDS: INSULIN GLARGINE SOLOSTAR 100 UNITS/ML 3 ML PEN SC SCH (08:50)
--- NOTE | 2018-12-28 09:56 | Discharge Summary ---
Date of Service December 28, 2018 Admission HPI Per Admitting Provider 68 y/o F with PMH HLD, DM II, morbid obesity, depression/anxiety, hypothyroidism , anal cancer 2007, DAVI, GERD/Barett's esophagus presents as a direct admit from [facility]. Pt was recently started on chemotherapy 2 weeks ago after being diagnosed with endometrial cancer earlier in the year in November. Labs at [facility] showed low WBCs and neutrophils along with low sugar (43 ). Pt notes home temps of 102.3 F along with chills and gastroparesis like symptoms, which she has had in the past for a few days. No urinary or respiratory sxs. No noted diarrhea, skin rashes. Pt otherwise denies any other acute concerns or complaints at present. Fam Hx- Mom- passed, uterine ca; father- passed, pancreatic ca; brother- living , brain tumor and kidney ca Social- denies alcohol, tobacco, other illicit drug use Surg Hx- hysterectomy Nov 2018, salpingectomy 2014, Partial L nephrectomy 2014 Principal Diagnosis neutropenic fever Discharge Exam Constitutional WD/WN, vitals as above + obese Eyes PERRL, conjunctivae normal, anicteric sclerae ENMT external ear and nose normal, oropharynx normal Respiratory normal respiratory effort, lungs clear to auscultation Cardiovascular RRR, no murmur, no edema Gastrointestinal (Abdomen) normal bowel sounds, soft, nontender, no hepatosplenomegaly Skin no rashes, warm and dry Psychiatric A+Ox3, euthymic affect Discharge Data Allergies Allergy/AdvReac Type Severity Reaction Status Date / Time ciprofloxacin AdvReac Intermediate ALTERED Verified 12/08/18 09:43 MENTAL STATE,AGITATED Cipro AdvReac Unknown ALTERED Verified 01/12/18 08:29 MENTAL STATE,AGITATED Hospital Course (1) Neutropenic fever: 68 y/o F with PMH HLD, DM II, morbid obesity, depression/anxiety, hypothyroidism, anal cancer 2007, DAVI, GERD/Barett's esophagus presented to [facility] as a direct admit from [facility]. Pt was recently started on chemotherapy 2 weeks ago after being diagnosed with endometrial cancer earlier in the year in November. Labs at [facility] showed low WBCs (2.26) and neutrophils (total count .54). Pt notes home temps of 102.3 F along with chills and gastroparesis like symptoms, which she has had in the past for a few days. Pt denied any urinary, respiratory, GI, or new skin sxs. The following was the medical management during pt's stay here. 1) Neutropenic fever -Pt was admitted with concerns of neutropenic fever. Blood cx x2 were drawn, pt was put on empiric antibiotics with vanc/zosyn. UA and flu swab were both negative and pt never had an elevated temp during stay here. Cx showed NGTD at time of d/c. Pt instructed to continue taking Augmentin antibiotic for 7 days and get blood drawn on 01/02 as scheduled for scheduled chemo tx 01/04. At time of d/c, last WBC 3.65, ANC 1328 (mild neutropenia). Pt continues to have no signs of obvious infections--denies diarrhea, skin changes/rashes, pulmonary or urinary symptoms. 2) Gastroparesis -Pt had no issues with nausea during stay here and was continued on [employer] zofran, omeprazole 3) HLD -Pt continued on [employer] atorvastatin 4) Hypothyroidism -Pt continued on [employer] synthroid, liothyronine 5) DM -Pt placed on ISS, had no issues with BSG during stay here. Home meds were held. 6) GERD -Pt continued on [employer] omeprazole 7) Anxiety/Depression -Pt continued on [employer] Clonazepam, Duloxetine, Buspirone, Buproprion, Aripiprazole 8) Insomnia -Pt continued on [employer] trazodone 9) IBS -Pt continued on [employer] linaclotide 10) DAVI -Pt continued on home CPAP DVT Prophylaxis was with Heparin. At time of d/c, pt has no other acute concerns or complaints. Total Time Total Time Spent Total Time Spent (In Minutes): <30 min Discharge Plan Discharge Items Patient Disposition: Home - Self-Care Reason For Visit: NEUTROPENIC FEVER Discharge Diagnosis: neutropenic fever Discharge Goals: Improve disease control Activity: Per 'Additional Instructions' section Non-emergency contact: Primary Care Provider Call non-emergency contact if: you have any medication questions, your symptoms worsen and your temperature is above 101 Follow-up/Referrals: Moustapha Dey MD [Primary Care Provider] - 01/03/19 1:00 pm (Please, follow up at Dr. Dey's office with Lucie Honeycutt PA-C on WednesdayJanuary 03 at 1:00 pm. *If you need to change this appointment, call the office at [phone].) Diet: Carb Consistent or DM2 Addtl Provider Instructions: You were admitted for neutropenic fever, which means that you had a low neutrophil (type of white blood cell) and high temperature. You were started on broad spectrum antibiotics and we collected blood cultures to see if there was any bacterial growth. You had no other obvious signs of infection in your lungs , urinary system, skin, or GI system. Please follow the below instructions on discharge: -Continue taking oral antibiotic augmentin that we prescribed to you -Go get your blood drawn on Wednesday, as scheduled, and they will notify you if your counts are low again. On discharge, your blood counts have slowly been improving. -Please see your PCP within one week of discharge. If you develop fever, then see them earlier. -Continue practicing good hand hygiene/washings and encourage others around you to do the same as your blood counts are still improving. Prescriptions: New amoxicillin-pot clavulanate [Augmentin] 875-125 mg tablet 1 tab PO BID 7 Days Qty: 14 RF: 0 Continue trazodone 50 mg tablet 100 mg PO HS RF: 0 atorvastatin 10 mg tablet 10 mg PO QAM RF: 0 sucralfate 1 gram tablet 1 g PO UD RF: 0 clonazepam 1 mg tablet 1 mg PO HS RF: 0 omeprazole 40 mg capsule,delayed release(DR/EC) 40 mg PO BID RF: 0 liothyronine 5 mcg tablet 5 mcg PO QAM RF: 0 buspirone 10 mg tablet 20 mg PO TID RF: 0 levothyroxine 112 mcg tablet 112 mcg PO QAM RF: 0 insulin aspart U-100 [Novolog Flexpen U-100 Insulin] 100 unit/mL Insulin Pen 1 dose subcut QAM RF: 0 aripiprazole 5 mg tablet 2.5 mg PO QAM RF: 0 bupropion HCl 300 mg tablet extended release 24 hr 300 mg PO QAM RF: 0 duloxetine 60 mg capsule,delayed release(DR/EC) 60 mg PO BID RF: 0 wpawpbcg-oyt-RO-lycopen-lutein [Centrum Silver] 0.4-300-250 mg-mcg-mcg Tablet 1 tab PO HS RF: 0 cholecalciferol (vitamin D3) [Vitamin D3] 1,000 unit Tablet 3,000 unit PO QPM RF: 0 liraglutide 0.6 mg/0.1 mL (18 mg/3 mL) pen injector 1.8 mg subcut QAM RF: 0 linaclotide 290 mcg capsule 290 mg PO QAM RF: 0 levomefolate-algal oil [Deplin (algal oil)] 15-90.314 mg Capsule 15 mg PO QAM RF: 0 insulin glargine [Lantus U-100 Insulin] 100 unit/mL Solution 50 unit SUBCUT HS RF: 0 ondansetron HCl [Zofran] 4 mg Tablet 4 mg PO TID PRN (Reason: Nausea) RF: 0 oxycodone 5 mg Capsule 5 mg PO Q4H PRN (Reason: Pain) RF: 0 vit A,C and E-snfhce-nfsmpmbr [Ocuvite with Lutein] 1,000 unit-200 mg-60 unit- 2 mg Tablet 1 tab PO BID RF: 0 quetiapine [Seroquel] 25 mg Tablet 25 mg PO TID PRN (Reason: Anxiety) RF: 0 Discontinued trazodone 50 mg tablet 25 mg PO BID RF: 0 hydrocortisone acetate [Anusol-HC] 25 mg suppository 25 mg ME HS PRN (Reason: ANAL PAIN) RF: 0 Stand-Alone Forms: [facility] Discharge Orders: Discharge Order (Routine); Ordered 12/28/18 Ordered By: Bryn Michael Admission Data Admit Date/Time: 12/26/18 15:52 Attending Provider: Dirk Moreland Admit Provider: Dirk Moreland Primary Care Provider: Moustapha Dey. Other Providers: Germain Singh Service: Oncology Other Interventions: Discharge Summary Assessment (RN) Last Done: 12/28/18 11:08 DC Date/Time DO NOT enter until pt leaves facility: 12/28/18 11:45 Supervising Physician Co-Signing Physician Notes I personally examined the patient and verified all fish points of history and exam, discussed case, and agree with decision making with Dr Michael Feeling good overall, no respiratory symptoms, no urinary symptoms, no fevers chills or sweats. vitals noted nad breathing unlabored no pallor or icterus no areas of erythema no focal neuro deficits neutropenic fever -workup negative. finish empiric abx w augmentin (allergic to cipro. risks/benefits of alternate coverage otherwise seems nebulous - discussed with pt who expresses understanding) stable for home Resident Activity Tracking Resident Involvement: Resident Care Provided Care Provided: Adult Hospital Medicine
== END 2018-12-28 11:45 | disposition home or self-care (01) | DRG 809 ==
LOC: 4E 15:52 → SUATTDRO 15:52

== ENCOUNTER 2019-01-17 18:37 | Inpatient (IN) ==
[2019-01-17] MEDS ORDERED: SODIUM CHLORIDE 0.9% 1000ML 1,000 ML IV ONE ×2 (19:07→20:54)
--- NOTE | 2019-01-17 19:14 | Emergency Department Note ---
Entered by Linda Billy acting as a scribe for Moustapha Noguera DO History of Present Illness General Chief complaint: Fever Stated complaint: FEVER, ACHEY, COLD- CHEMO PT Time Seen by Provider: 01/17/19 18:59 Source: patient History of Present Illness Onset (ago): hour(s) 7 Location: head (Fever) Pain Consistency: + other (Persistent) Maximum Pain Intensity: 8 Quality: + other (Fever) Relieved By: not by medication (Ibuprofen, Oxycodone) Associated symptoms: + fever/chills, + nausea/vomiting (Positive nausea. Negative vomiting.), + shortness of breath and + other (Positive polyuria, lower extremity pain. Negative diarrhea, back pain, rash and dysuria. ); no cough Treatments prior to arrival: other (Ibuprofen, Oxycodone) The patient is a 68 year old female who presents to the Emergency Room with complaints of persistent fever starting 7 hours ago. The patient reports that s he has a fever and chills. She states that her highest recorded fever at home was 102.4F. She notes that she feels short of breath and is nauseous. She adds that she has been thirsty and is experiencing polyuria. The patient reports that both of her lower extremities hurt but that her lower extremities were not swollen. She states that her leg pain started 2 weeks ago and has been worsening. She notes that she spoke with a nurse from Dr. Luque - Oncologist office [employer] who recommended she come into the Emergency Department. She adds that she last received chemotherapy 10 days ago for her uterine cancer and is unaware if her cancer has spread. She states that she sees Dr. Brito PCP. The patient reports that she took 800 mg Ibuprofen PO at 1200 and Oxycodone PO at 1400 [employer] that did not help her symptoms. She states that she did receive a flu shot recently. She denies having a cough, diarrhea, vomiting, back pain, rash and dysuria. She denies having any history of a DVT. Home Medications Home Medications Medication Instructions Recorded Confirmed Type Centrum Silver 1 tab PO HS 09/14/18 01/17/19 History Novolog Flexpen U-100 Insulin 40 units SUBCUT QAM 09/14/18 01/17/19 History aripiprazole 2.5 mg PO QAM 09/14/18 01/17/19 History atorvastatin 10 mg PO QAM 09/14/18 01/17/19 History bupropion HCl 300 mg PO QAM 09/14/18 01/17/19 History buspirone 20 mg PO TID 09/14/18 01/17/19 History cholecalciferol (vitamin D3) 3,000 unit PO QPM 09/14/18 01/17/19 History [Vitamin D3] clonazepam 1 mg PO HS 09/14/18 01/17/19 History duloxetine 60 mg PO BID 09/14/18 01/17/19 History levomefolate-algal oil [Deplin 15 mg PO QAM 09/14/18 01/17/19 History (algal oil)] levothyroxine 112 mcg PO QAM 09/14/18 01/17/19 History linaclotide 290 mg PO QAM 09/14/18 01/17/19 History liothyronine 5 mcg PO QAM 09/14/18 01/17/19 History liraglutide 1.8 mg SUBCUT QAM 09/14/18 01/17/19 History omeprazole 40 mg PO BID 09/14/18 01/17/19 History sucralfate 1 g PO UD 09/14/18 01/17/19 History trazodone 100 mg PO HS 09/14/18 01/17/19 History Lantus U-100 Insulin 65 unit SUBCUT HS 09/21/18 01/17/19 History Ocuvite with Lutein 1 tab PO BID 12/06/18 01/17/19 History ondansetron HCl [Zofran] 4 mg PO TID PRN 12/06/18 01/17/19 History oxycodone 5 mg PO Q4H PRN 12/06/18 01/17/19 History quetiapine [Seroquel] 25 mg PO TID PRN 12/06/18 01/17/19 History dexamethasone 20 mg PO DIRECTED PRN 01/17/19 01/17/19 History ibuprofen 200 mg PO QID PRN 01/17/19 01/17/19 History Allergies Allergy/AdvReac Type Severity Reaction Status Date / Time ciprofloxacin AdvReac Intermediate ALTERED Verified 01/17/19 21:26 MENTAL STATE,AGITATED Cipro AdvReac Unknown ALTERED Verified 01/12/18 08:29 MENTAL STATE,AGITATED Past Med/Surg History Medical History Depression (Chronic) Kidney stones (Chronic) Renal mass, left Hypothyroidism (Chronic) IDDM (insulin dependent diabetes mellitus) (Chronic) Anxiety disorder, unspecified (Chronic) Barretts esophagus Cancer CERVICAL CANCER (SURGERY) ANAL CANCER 2006 (CHEMO AND RADIATION [place]) Diabetes mellitus, type 2 Endometrial cancer Gastroparesis Hyperlipidemia Obesity (BMI 30-39.9) Sleep apnea CPAP Surgical History H/O bilateral salpingo-oophorectomy H/O partial nephrectomy LEFT SIDE D/T TUMOR History of arthroscopy RT KNEE History of colonoscopy History of conization of cervix History of cystoscopy STONE EXTRACTION History of dilatation and curettage History of esophagogastroduodenoscopy (EGD) History of flexible sigmoidoscopy History of hysterectomy History of lithotripsy History of tooth extraction Family History Brother Family history of diabetes mellitus Social History Preferred Language: Brazilian Beliefs That Will Affect Care: None Current Living Situation: Spouse Feels Safe at Home: Yes Smoking Status: Never smoker Hx Alcohol Use: No Hx Substance Use: No Review of Systems See HPI for pertinent positives & negatives. and A total of 10 systems reviewed and were otherwise negative Physical Exam Vital Signs Vital Signs - 24 hr 01/17/19 18:48 01/17/19 20:05 01/17/19 20:53 Temperature 37.5 C Temperature Source Oral Sepsis Recent Fever Within 48 Hours Yes Sepsis New/Unexplained Change in Mental Status No Sepsis Action Taken by Nursing No Action Required Pulse Rate 137 H Pulse Rate [Finger] 123 H 108 H Pulse Rhythm [Finger] Pulse Strength [Finger] Respiratory Rate 18 18 18 Respiratory Effort / Characteristics Respiratory Depth Respiratory Pattern Blood Pressure 172/97 H Blood Pressure [Right Arm] 144/72 H 128/71 Blood Pressure Mean 122 Blood Pressure Mean [Right Arm] 96 90 Blood Pressure Position [Right Arm] Pulse Oximetry 97 92 92 Oxygen Delivery Method Room Air Room Air Room Air Oxygen Flow Rate 01/17/19 22:29 01/18/19 00:00 01/18/19 00:37 Temperature Temperature Source Sepsis Recent Fever Within 48 Hours Sepsis New/Unexplained Change in Mental Status Sepsis Action Taken by Nursing Pulse Rate 68 Pulse Rate [Finger] 110 H 115 H Pulse Rhythm [Finger] Regular Pulse Strength [Finger] Normal Respiratory Rate 19 16 16 Respiratory Effort / Characteristics Non-Labored Respiratory Depth Normal Respiratory Pattern Regular Blood Pressure 132/82 Blood Pressure [Right Arm] 134/64 131/68 Blood Pressure Mean Blood Pressure Mean [Right Arm] 87 89 Blood Pressure Position [Right Arm] Lying Pulse Oximetry 96 98 98 Oxygen Delivery Method Room Air Room Air Room Air Oxygen Flow Rate 01/18/19 01:22 01/18/19 01:30 01/18/19 01:32 Temperature 38.9 C H Temperature Source Oral Oral Oral Sepsis Recent Fever Within 48 Hours Sepsis New/Unexplained Change in Mental Status Sepsis Action Taken by Nursing Pulse Rate Pulse Rate [Finger] 120 H 118 H 118 H Pulse Rhythm [Finger] Pulse Strength [Finger] Respiratory Rate 16 16 16 Respiratory Effort / Characteristics Non-Labored Non-Labored Non-Labored Respiratory Depth Normal Normal Normal Respiratory Pattern Blood Pressure Blood Pressure [Right Arm] 124/67 130/60 128/65 Blood Pressure Mean Blood Pressure Mean [Right Arm] 86 83 86 Blood Pressure Position [Right Arm] Lying Lying Lying Pulse Oximetry 100 98 100 Oxygen Delivery Method Nasal Cannula Room Air Nasal Cannula Oxygen Flow Rate 6 0 2 01/18/19 01:40 Temperature 37.5 C Temperature Source Oral Sepsis Recent Fever Within 48 Hours Sepsis New/Unexplained Change in Mental Status Sepsis Action Taken by Nursing Pulse Rate Pulse Rate [Finger] 115 H Pulse Rhythm [Finger] Pulse Strength [Finger] Respiratory Rate 16 Respiratory Effort / Characteristics Non-Labored Respiratory Depth Normal Respiratory Pattern Blood Pressure Blood Pressure [Right Arm] 148/68 H Blood Pressure Mean Blood Pressure Mean [Right Arm] 94 Blood Pressure Position [Right Arm] Lying Pulse Oximetry 95 Oxygen Delivery Method Nasal Cannula Oxygen Flow Rate 0 GENERAL: Patient is awake alert in no acute distress patient is resting comfortably and showing no signs of anxiety EYES: The conjunctivae are clear. The pupils are round and reactive. EARS, NOSE, MOUTH AND THROAT: The nose is without any evidence of any deformity. Mucous membranes are moist tongue is midline NECK: The neck is nontender and supple. RESPIRATORY: Normal respiratory effort is noted there is no evidence of wheezing rhonchi or rales CARDIOVASCULAR: Tachycardic rate with regular rhythm was noted. There is no definite murmur noted. GASTROINTESTINAL: The abdomen is soft. Bowel sounds are present in all quadrants. Abdomen is nontender BACK: No midline tenderness or or step-off noted range of motion in flexion extension as well as rotation no signs of muscle spasm noted MUSCULOSKELETAL/EXTREMITIES: There is no evidence of gross deformity full range of motion is noted in the hips and shoulders SKIN: There is no obvious evidence of any rash. There are no petechiae, pallor or cyanosis noted. NEUROLOGIC: Patient is awake alert and oriented x3 strength is symmetric patellar reflexes are 2+ bilaterally Course 1904: Past medical records reviewed. The patient was evaluated in room C6, and a complete history and physical examination were performed. 2054: I updated the patient at this time on her lab results. I discussed completing further imaging with the patient. 2233: I updated the patient at this time on her imaging findings. We discussed admission at this time. 2244: I reviewed the patient's case with Dr. Camden BROWN hospitalist. She will evaluate the patient for further management. 2255: I updated the patient at this time. 2308: I reviewed the patient's case with Dr. Ashlee Altman urologist. Reevaluation(s) Reevaluation #1: I reviewed the patient's case with Dr. Camden BROWN hospitalist. She will evaluate the patient for further management. Time: 22:44 Reevaluation #2: I reviewed the patient's case with Dr. Ashlee Altman urologist. Time: 23:08 Administered Medications Discontinued Medications Sodium Chloride (Nss 1000ml) 1,000 mls @ 999 mls/hr IV .Q1H1M ONE Stop: 01/17/19 20:07 Last Infusion: 01/17/19 21:08 Dose: 0 mls/hr Documented by: [id number] Admin: 01/17/19 20:04 Dose: 999 mls/hr Documented by: [id number] Prochlorperazine 5 mg/ Syringe 5 mls @ 5 mls/min IV ONE ONE Stop: 01/17/19 19:46 Last Admin: 01/17/19 20:04 Dose: 5 mls/min Documented by: [id number] Sodium Chloride (Nss 1000ml) 1,000 mls @ 999 mls/hr IV .Q1H1M ONE Stop: 01/17/19 21:54 Last Infusion: 01/17/19 23:07 Dose: 0 mls/hr Documented by: [id number] Admin: 01/17/19 21:08 Dose: 999 mls/hr Documented by: [id number] Piperacillin Sod/Tazobactam Sod (Zosyn) 4.5 gm in 120 mls @ 240 mls/hr IV NOW ONE Stop: 01/17/19 22:59 Last Infusion: 01/18/19 00:14 Dose: 0 mls/hr Documented by: [id number] Admin: 01/17/19 23:39 Dose: 240 mls/hr Documented by: [id number] Prochlorperazine 5 mg/ Syringe 5 mls @ 5 mls/min IV ONE ONE Stop: 01/17/19 23:10 Last Admin: 01/17/19 23:38 Dose: 5 mls/min Documented by: [id number] Iothalamate Meglumine (Cysto-Conray Ii) Confirm Administered Dose 250 ml .ROUTE .STK-MED ONE Stop: 01/18/19 00:36 Last Admin: 01/18/19 01:10 Dose: 5 ml Documented by: [id number] Ioversol (Optiray 320 125ml) 119 ml IV ONCE PRN PRN Reason: Interaction Checking Stop: 01/21/19 22:06 Last Admin: 01/17/19 22:08 Dose: 119 ml Documented by: [id number] Prochlorperazine (Compazine) Confirm Administered Dose 10 mg .ROUTE .STK-MED ONE Stop: 01/17/19 20:00 Last Admin: 01/17/19 20:04 Dose: Not Given Documented by: [id number] Medical Decision Making Differential Diagnosis Differential includes viral illness, influenza, streptococcal pharyngitis, meningitis, pneumonia, sinusitis, UTI, pyelonephritis, otitis media. Medical Records Attestation: I reviewed the patient's medical records. Home Medications Current Medication List: was personally reviewed by me Laboratory Data Attestation: I reviewed the patient's lab results. Result diagrams: 01/17/19 19:45 01/17/19 19:45 Lab Results 01/17/19 01/17/19 01/17/19 Range/Units 19:30 19:45 19:45 WBC 18.10 H (4.8-10.8) K/uL RBC 4.05 L (4.2-5.4) M/uL Hgb 11.2 L (12.0-16.0) g/dL Hct 34.0 L (37-47) % MCV 84.0 (80-100) fL MCH 27.7 (25-34) pg MCHC 32.9 (32-36) g/dL RDW Std Deviation 48.7 H (36.4-46.3) fL RDW Coeff of Leigha 16.3 H (11.5-14.5) % Plt Count 127 L (130-400) K/uL MPV 9.6 (7.4-10.4) fL Immature Gran % (Auto) 1.5 % Neut % (Auto) 83.8 % Lymph % (Auto) 5.5 % Trinity % (Auto) 8.1 % Eos % (Auto) 0.8 % Baso % (Auto) 0.3 % Immature Gran # (Auto) 0.27 H (0.00-0.02) K/uL Neut # (Auto) 15.16 H (1.4-6.5) K/uL Lymph # (Auto) 1.00 L (1.2-3.4) K/uL Trinity # (Auto) 1.47 H (0.11-0.59) K/uL Eos # (Auto) 0.14 (0-0.5) K/uL Baso # (Auto) 0.06 (0-0.2) K/uL Toxic Granulation 3+ Toxic Vacuolation 1+ Ovalocytes 1+ ESR 62 H (0-21) mm/hr PT (9.0-12.0) Seconds INR (0.9-1.1) APTT (21.0-31.0) Seconds PTT Ratio Sodium (136-145) mmol/L Potassium (3.5-5.1) mmol/L Chloride (98-107) mmol/L Carbon Dioxide (21-32) mmol/L Anion Gap (3-11) BUN (7-18) mg/dl Creatinine (0.6-1.2) mg/dl Est Cr Clr Drug Dosing ml/min Est GFR ( Amer) Est GFR (Non-Af Amer) BUN/Creatinine Ratio (10-20) Glucose (70-99) mg/dl POC Glucose (70-99) Lactate (0.4-2.0) mmol/L Calcium (8.5-10.1) mg/dl Magnesium (1.8-2.4) mg/dl Total Bilirubin (0.2-1) mg/dl AST (15-37) U/L ALT (12-78) U/L Alkaline Phosphatase (45-117) U/L Troponin I (0-0.045) ng/ml C-Reactive Protein (0-0.29) mg/dl Total Protein (6.4-8.2) gm/dl Albumin (3.4-5.0) gm/dl Globulin (2.5-4.0) gm/dl Albumin/Globulin Ratio (0.9-2) Urine Color Urine Appearance (Clear) Urine pH (4.5-7.5) Ur Specific [place] (1.000-1.030) Urine Protein (Negative) Urine Glucose (UA) (Negative) Urine Ketones (Negative) Urine Blood (Negative) Urine Nitrite (Negative) Urine Bilirubin (Negative) Urine Urobilinogen (Negative) Ur Leukocyte Esterase (Negative) Urine WBC (Auto) (0-5) /hpf Urine RBC (Auto) (0-4) /hpf U Hyaline Cast (Auto) (0-5) /lpf U Epithel Cells (Auto) (0-5) /lpf Urine Bacteria (Auto) (Negative) Influenza Type A (PCR) Neg for Influ A (Neg) Influenza Type B (PCR) Neg for Influ B (Neg) 01/17/19 01/17/19 01/17/19 Range/Units 19:45 19:45 19:45 WBC (4.8-10.8) K/uL RBC (4.2-5.4) M/uL Hgb (12.0-16.0) g/dL Hct (37-47) % MCV (80-100) fL MCH (25-34) pg MCHC (32-36) g/dL RDW Std Deviation (36.4-46.3) fL RDW Coeff of Leigha (11.5-14.5) % Plt Count (130-400) K/uL MPV (7.4-10.4) fL Immature Gran % (Auto) % Neut % (Auto) % Lymph % (Auto) % Trinity % (Auto) % Eos % (Auto) % Baso % (Auto) % Immature Gran # (Auto) (0.00-0.02) K/uL Neut # (Auto) (1.4-6.5) K/uL Lymph # (Auto) (1.2-3.4) K/uL Trinity # (Auto) (0.11-0.59) K/uL Eos # (Auto) (0-0.5) K/uL Baso # (Auto) (0-0.2) K/uL Toxic Granulation Toxic Vacuolation Ovalocytes ESR (0-21) mm/hr PT 10.9 (9.0-12.0) Seconds INR 1.1 (0.9-1.1) APTT 25.6 (21.0-31.0) Seconds PTT Ratio 0.9 Sodium 134 L (136-145) mmol/L Potassium 4.0 (3.5-5.1) mmol/L Chloride 102 (98-107) mmol/L Carbon Dioxide 25 (21-32) mmol/L Anion Gap 7.0 (3-11) BUN 15 (7-18) mg/dl Creatinine 1.01 (0.6-1.2) mg/dl Est Cr Clr Drug Dosing 74.6 ml/min Est GFR ( Amer) 66.7 Est GFR (Non-Af Amer) 57.6 BUN/Creatinine Ratio 15.0 (10-20) Glucose 124 H (70-99) mg/dl POC Glucose (70-99) Lactate 0.9 (0.4-2.0) mmol/L Calcium 8.4 L (8.5-10.1) mg/dl Magnesium 1.8 (1.8-2.4) mg/dl Total Bilirubin 0.4 (0.2-1) mg/dl AST 13 L (15-37) U/L ALT 26 (12-78) U/L Alkaline Phosphatase 149 H (45-117) U/L Troponin I 0.217 H* (0-0.045) ng/ml C-Reactive Protein 5.00 H (0-0.29) mg/dl Total Protein 6.4 (6.4-8.2) gm/dl Albumin 3.1 L (3.4-5.0) gm/dl Globulin 3.3 (2.5-4.0) gm/dl Albumin/Globulin Ratio 0.9 (0.9-2) Urine Color Urine Appearance (Clear) Urine pH (4.5-7.5) Ur Specific [place] (1.000-1.030) Urine Protein (Negative) Urine Glucose (UA) (Negative) Urine Ketones (Negative) Urine Blood (Negative) Urine Nitrite (Negative) Urine Bilirubin (Negative) Urine Urobilinogen (Negative) Ur Leukocyte Esterase (Negative) Urine WBC (Auto) (0-5) /hpf Urine RBC (Auto) (0-4) /hpf U Hyaline Cast (Auto) (0-5) /lpf U Epithel Cells (Auto) (0-5) /lpf Urine Bacteria (Auto) (Negative) Influenza Type A (PCR) (Neg) Influenza Type B (PCR) (Neg) 01/17/19 01/18/19 Range/Units 21:00 02:11 WBC (4.8-10.8) K/uL RBC (4.2-5.4) M/uL Hgb (12.0-16.0) g/dL Hct (37-47) % MCV (80-100) fL MCH (25-34) pg MCHC (32-36) g/dL RDW Std Deviation (36.4-46.3) fL RDW Coeff of Leigha (11.5-14.5) % Plt Count (130-400) K/uL MPV (7.4-10.4) fL Immature Gran % (Auto) % Neut % (Auto) % Lymph % (Auto) % Trinity % (Auto) % Eos % (Auto) % Baso % (Auto) % Immature Gran # (Auto) (0.00-0.02) K/uL Neut # (Auto) (1.4-6.5) K/uL Lymph # (Auto) (1.2-3.4) K/uL Trinity # (Auto) (0.11-0.59) K/uL Eos # (Auto) (0-0.5) K/uL Baso # (Auto) (0-0.2) K/uL Toxic Granulation Toxic Vacuolation Ovalocytes ESR (0-21) mm/hr PT (9.0-12.0) Seconds INR (0.9-1.1) APTT (21.0-31.0) Seconds PTT Ratio Sodium (136-145) mmol/L Potassium (3.5-5.1) mmol/L Chloride (98-107) mmol/L Carbon Dioxide (21-32) mmol/L Anion Gap (3-11) BUN (7-18) mg/dl Creatinine (0.6-1.2) mg/dl Est Cr Clr Drug Dosing ml/min Est GFR ( Amer) Est GFR (Non-Af Amer) BUN/Creatinine Ratio (10-20) Glucose (70-99) mg/dl POC Glucose 147 H (70-99) Lactate (0.4-2.0) mmol/L Calcium (8.5-10.1) mg/dl Magnesium (1.8-2.4) mg/dl Total Bilirubin (0.2-1) mg/dl AST (15-37) U/L ALT (12-78) U/L Alkaline Phosphatase (45-117) U/L Troponin I (0-0.045) ng/ml C-Reactive Protein (0-0.29) mg/dl Total Protein (6.4-8.2) gm/dl Albumin (3.4-5.0) gm/dl Globulin (2.5-4.0) gm/dl Albumin/Globulin Ratio (0.9-2) Urine Color Yellow Urine Appearance Clear (Clear) Urine pH 6.5 (4.5-7.5) Ur Specific [place] 1.010 (1.000-1.030) Urine Protein Negative (Negative) Urine Glucose (UA) Negative (Negative) Urine Ketones Negative (Negative) Urine Blood 2+ H (Negative) Urine Nitrite Negative (Negative) Urine Bilirubin Negative (Negative) Urine Urobilinogen Negative (Negative) Ur Leukocyte Esterase 1+ H (Negative) Urine WBC (Auto) >30 H (0-5) /hpf Urine RBC (Auto) 0-4 (0-4) /hpf U Hyaline Cast (Auto) 1-5 (0-5) /lpf U Epithel Cells (Auto) 0-5 (0-5) /lpf Urine Bacteria (Auto) 4+ H (Negative) Influenza Type A (PCR) (Neg) Influenza Type B (PCR) (Neg) Imaging Data Radiologist's Impression: Radiology results as stated below per my review and the radiologist's interpretation: CHEST CTA for PULMONARY ARTERIES CT DOSE: 2167.84 mGy.cm HISTORY: Shortness of breath. Fever. TECHNIQUE: Multiaxial CT images of the chest were performed following the intravenous administration of contrast to evaluate the pulmonary arteries. Maximal intensity projection images were also obtained. A dose lowering technique was utilized adhering to the principles of ALARA. COMPARISON STUDY: Chest CT 11/17/2018. FINDINGS: Normal caliber thoracic aorta without evidence for dissection. No pleural or pericardial effusions. Suboptimal opacification of the distal pulmonary arteries due to the timing of contrast. However, no definite filling defects within the pulmonary arteries to suggest pulmonary embolus. No mediastinal or hilar lymphadenopathy. No suspicious lytic or blastic osseous lesions. A right subclavian Port-A-Cath terminates in the SVC. No pneumothorax. The central airways are patent. There again noted a few scattered stable subcentimeter indeterminate pulmonary nodules primarily within the right lung. These measure up to 5 mm these are likely benign. No new pulmonary nodules identified. No focal lung consolidations to suggest pneumonia. IMPRESSION: 1. No evidence for pulmonary embolus with limitations as described above. 2. Stable subcentimeter pulmonary nodules. These are likely benign. Electronically signed by: Marcello Antoine M.D. 01/17/2019 10:43 PM ABDOMEN AND PELVIS CT WITH IV CONTRAST CT DOSE: HISTORY: Generalized abdominal pain. fever TECHNIQUE: Multiaxial CT images of the abdomen and pelvis were performed following the use of intravenous contrast. A dose lowering technique was utilized adhering to the principles of ALARA. COMPARISON STUDY: Abdomen and pelvis CT 11/17/2018. FINDINGS: No pneumoperitoneum. No pneumatosis. No suspicious lytic or blastic osseous lesions. Mild bladder wall thickening with adjacent fat stranding. There is a 5 mm stone within the distal right ureter resulting in moderate right hydroureteronephrosis. Delayed right nephrogram due to the hydronephrosis. Heterogeneous enhancement within the lower pole the left kidney. There is mild left perinephric fat stranding and mild left urothelial enhancement. Findings likely represent a pyelonephritis. No left-sided hydronephrosis. No left ureteral stones. Prior hysterectomy. The liver, gallbladder, spleen, adrenal glands, and pancreas are unremarkable. No retroperitoneal lymphadenopathy. No bowel wall thickening or obstruction. Stable appearance to the appendix. This is a slightly bulbous tip. However, no evidence for acute appendicitis. Moderate stool within the colon. Scarring within the upper pole the left kidney, unchanged. IMPRESSION: 1. A 5 mm obstructing stone within the distal right ureter resulting in moderate right hydroureteronephrosis. 2. Left-sided pyelonephritis with an associated cystitis. 3. Hysterectomy. 4. No definite bowel wall thickening or obstruction. 5. Stable appearance of the appendix which demonstrates thickening at the tip measuring up to 9 mm in thickness. Consider follow-up nonemergent abdomen and pelvis CT with oral contrast to exclude the possibility of a lesion at the tip of the appendix. Electronically signed by: Marcello Antoine M.D. 01/17/2019 10:53 PM XR chest 1V portable HISTORY: Sepsis COMPARISON: Chest 12/08/2018. FINDINGS: The lungs are clear. Cardiac silhouette is normal in size. No pleural effusions. No pneumothorax. Right subclavian Port-A-Cath terminates in the SVC. IMPRESSION: No acute process. Electronically signed by: Marcello Antoine M.D. 01/17/2019 8:29 PM ECG Data Attestation: I personally reviewed and interpreted this ECG as follows: Indication: weakness Rate (beats per minute): 124 Rhythm: sinus tachycardia Findings: no ST depression, no ST elevation and no ectopy Comparison ECG Date: from (09/14/18) Change: no significant change (Increased rate, otherwise no change.) Blood Pressure Blood Pressure Findings: Normal blood pressure Blood Pressure Disposition: further management by hospitalist LINDA Rios The patient is a 68-year-old female who presented to the emergency department for a febrile illness. The patient has a history of uterine cancer and is currently receiving chemotherapy. Her last dose of chemotherapy was last week. Initially when the patient came in complaining of fever and generalized malaise we went down the sepsis pathway. The patient was tachycardic but her blood pressure was not low. The patient took antipyretics earlier. She did not of a significant fever in the emergency department but she does have a history of insulin-dependent diabetes as well as kidney stones. She continued to have periods of nausea. She was treated with antiemetics. She was also treated with IV antibiotics and IV fluids. She was reevaluated multiple times. Because of her continued tachycardia a CT the chest was obtained. There is no signs of pulmonary embolus or pneumonia. CT the abdomen and pelvis was also obtained because of the patient's persistent nausea. She was found to have signs of pyelonephritis as well as an obstructing right distal ureteral calculus. I discussed the patient's laboratory and radiographic studies with her. Because of her findings she was treated with IV antibiotics. I discussed her case with the on-call [facility] hospitalist group. I also discussed her case with the on-call [facility] urologist. The patient was agreeable to inpatient management at this time. She was feeling much better. Impression & Plan Fever, Nausea, Vomiting, Pyelonephritis, Calculus, ureteral Discharge Plan Visit Data *Final* Discharge Date/Time: 01/18/19 00:37 Chief Complaint: Fever Stated Complaint: FEVER, ACHEY, COLD- CHEMO PT ED Provider: Moustapha Noguera Discharge Problem: Fever, Nausea, Vomiting, Pyelonephritis, Calculus, ureteral Patient Disposition: Admitted As Inpatient Discharge Instructions Interventions: ED Discharge Assessment Last Done: 01/18/19 00:37 Discharge Problem: Fever Qualifiers: Fever type: unspecified Qualified Code(s): R50.9 - Fever, unspecified Vomiting Qualifiers: Vomiting type: unspecified Vomiting Intractability: non-intractable Nausea presence: with nausea Qualified Code(s): R11.2 - Nausea with vomiting, unspecified The scribe's documentation has been prepared under my direction and personally reviewed by me in its entirety. I confirm that the note above accurately reflects all work, treatment, procedures, and medical decision making performed by me.
[2019-01-17] MEDS ORDERED: PROCHLORPERAZINE 5 MG in SYRINGE 4 ML IV ONE ×2 (19:45→23:09)
[2019-01-17] MEDS ORDERED: PROCHLORPERAZINE 5 MG/ML 2 ML VIAL ONE (19:59)
[2019-01-17 20:10] LABS: Hemoglobin 11.2 g/dL (12.0-16.0); Mean Corpuscular Hgb Conc 32.9 g/dL (32-36); Mean Platelet Volume 9.6 fL (7.4-10.4); Platelet Count 127 K/uL (130-400); RDW Coefficient of Variation 16.3 % (11.5-14.5); RDW Standard Deviation 48.7 fL (36.4-46.3); Red Blood Count 4.05 M/uL (4.2-5.4)
[2019-01-17 20:26] LABS: INR 1.1 (0.9-1.1); Partial Thromboplastin Ratio 0.9; Partial Thromboplastin Time 25.6 Seconds (21.0-31.0); Prothrombin Time 10.9 Seconds (9.0-12.0)
[2019-01-17 20:27] LABS: Albumin Level 3.1 gm/dl (3.4-5.0); Calcium 8.4 mg/dl (8.5-10.1); Creatinine Clr Calc Pharmacy 74.6 ml/min; Est GFR (African American) 66.7; Est GFR (Non-African American) 57.6; Magnesium 1.8 mg/dl (1.8-2.4)
--- NOTE | 2019-01-17 20:30 | XRay Report ---
XR chest 1V portable HISTORY: Sepsis COMPARISON: Chest 12/08/2018. FINDINGS: The lungs are clear. Cardiac silhouette is normal in size. No pleural effusions. No pneumot horax. Right subclavian Port-A-Cath terminates in the SVC. IMPRESSION: No acute process. Electronically signed by: Marcello Antoine M.D. 01/17/2019 8:29 PM
[2019-01-17 20:34] LABS: Influenza A virus by PCR Neg for Influ A (Neg); Influenza B virus by PCR Neg for Influ B (Neg)
[2019-01-17 20:38] LABS: Albumin Globulin Ratio 0.9 (0.9-2); Bilirubin,Total 0.4 mg/dl (0.2-1); Globulin 3.3 gm/dl (2.5-4.0); Total Protein 6.4 gm/dl (6.4-8.2); Troponin I 0.217 ng/ml (0-0.045)
[2019-01-17 20:41] LABS: Basophils # (auto) 0.06 K/uL (0-0.2); Basophils % (auto) 0.3 %; Eosinophils # (auto) 0.14 K/uL (0-0.5); Eosinophils % (auto) 0.8 %; Immature Granulocytes # (auto) 0.27 K/uL (0.00-0.02); Immature Granulocytes % (auto) 1.5 %; Lymphocytes % (auto) 5.5 %; Monocytes # (auto) 1.47 K/uL (0.11-0.59); Monocytes % (auto) 8.1 %; Neutrophils # (auto) 15.16 K/uL (1.4-6.5); Neutrophils % (auto) 83.8 %; Ovalocytes 1+; Toxic Granulation 3+; Toxic Vacuolation 1+
[2019-01-17] MEDS ORDERED: OPTIRAY 320 125ml IV PRN (22:07)
[2019-01-17] MEDS ORDERED: PROCHLORPERAZINE 1 ML IV ONE (22:18)
[2019-01-17] MEDS ORDERED: PIPERACILLIN/TAZOBACTAM 4.5 GM/120 ML BAG IV ONE (22:30)
[2019-01-17] MEDS ORDERED: PIPERACILL/TAZOBAC CONSULT ACTIVE PRN (22:30)
--- NOTE | 2019-01-17 22:44 | CT Scan Report ---
CHEST CTA for PULMONARY ARTERIES CT DOSE: 2167.84 mGy.cm HISTORY: Shortness of breath. Fever. TECHNIQUE: Multiaxial CT images of the chest were performed following the intravenous administration of contrast to evaluate the pulmonary arteries. Maximal intensity projection images were also obtaine d. A dose lowering technique was utilized adhering to the principles of ALARA. COMPARISON STUDY: Chest CT 11/17/2018. FINDINGS: Normal caliber thoracic aorta without evidence for dissection. No pleural or pericardial ef fusions. Suboptimal opacification of the distal pulmonary arteries due to the timing of contrast. How ever, no definite filling defects within the pulmonary arteries to suggest pulmonary embolus. No medi astinal or hilar lymphadenopathy. No suspicious lytic or blastic osseous lesions. A right subclavian Port-A-Cath terminates in the SVC. No pneumothorax. The central airways are patent. There again noted a few scattered stable subcentimeter indeterminate pulmonary nodules primarily within the right lung . These measure up to 5 mm these are likely benign. No new pulmonary nodules identified. No focal santos g consolidations to suggest pneumonia. IMPRESSION: 1. No evidence for pulmonary embolus with limitations as described above. 2. Stable subcentimeter pulmonary nodules. These are likely benign. Electronically signed by: Marcello Antoine M.D. 01/17/2019 10:43 PM
--- NOTE | 2019-01-17 22:55 | CT Scan Report ---
ABDOMEN AND PELVIS CT WITH IV CONTRAST CT DOSE: HISTORY: Generalized abdominal pain. fever TECHNIQUE: Multiaxial CT images of the abdomen and pelvis were performed following the use of intrave nous contrast. A dose lowering technique was utilized adhering to the principles of ALARA. COMPARISON STUDY: Abdomen and pelvis CT 11/17/2018. FINDINGS: No pneumoperitoneum. No pneumatosis. No suspicious lytic or blastic osseous lesions. Mild b ladder wall thickening with adjacent fat stranding. There is a 5 mm stone within the distal right ure ter resulting in moderate right hydroureteronephrosis. Delayed right nephrogram due to the hydronephr osis. Heterogeneous enhancement within the lower pole the left kidney. There is mild left perinephric fat stranding and mild left urothelial enhancement. Findings likely represent a pyelonephritis. No l eft-sided hydronephrosis. No left ureteral stones. Prior hysterectomy. The liver, gallbladder, spleen , adrenal glands, and pancreas are unremarkable. No retroperitoneal lymphadenopathy. No bowel wall th ickening or obstruction. Stable appearance to the appendix. This is a slightly bulbous tip. However, no evidence for acute appendicitis. Moderate stool within the colon. Scarring within the upper pole t he left kidney, unchanged. IMPRESSION: 1. A 5 mm obstructing stone within the distal right ureter resulting in moderate right hydroureterone phrosis. 2. Left-sided pyelonephritis with an associated cystitis. 3. Hysterectomy. 4. No definite bowel wall thickening or obstruction. 5. Stable appearance of the appendix which demonstrates thickening at the tip measuring up to 9 mm in thickness. Consider follow-up nonemergent abdomen and pelvis CT with oral contrast to exclude the po ssibility of a lesion at the tip of the appendix. Electronically signed by: Marcello Antoine M.D. 01/17/2019 10:53 PM
[2019-01-17 23:05] LABS: Appearance Urine Clear (Clear); Bacteria Urine Automated 4+ (Negative); Bilirubin Urine Negative (Negative); Blood Urine 2+ (Negative); Color Urine Yellow; Epithelial Cell Urine Auto 0-5 /lpf (0-5); Glucose Urine UA Negative (Negative); Ketones Urine Negative (Negative); Leukocyte Esterase Urine 1+ (Negative); Nitrite Urine Negative (Negative); Protein Urine Negative (Negative); RBC Urine Automated 0-4 /hpf (0-4); Urobilinogen Urine Negative (Negative); WBC Urine Automated >30 /hpf (0-5); pH Urine 6.5 (4.5-7.5)
--- NOTE | 2019-01-17 23:32 | History & Physical Report ---
Date of Service January 17, 2019 Assessment & Plan (1) Calculus, ureteral: Arlin is a 68-year-old female who presents to the ER with complaints of feeling unwell, fevers, rigors. Her past medical history is significant for chemotherapy for uterine cancer that is ongoing. Her past medical history also significant for recurrent nephrolithiasis requiring stents in the past. Her CT scan of the abdomen and pelvis was positive for 5 mm obstructing ureteral stone on the right, pyelonephritis of the left kidney. CTA of the chest was negative for PE. Chest x-ray unremarkable. Tachycardic. Febrile. White blood cell count was elevated 18. Anemia noted H&H 11.2/34. Chemistry profile was s ignificant for slightly elevated glucose 124, elevated troponin 0.2, CRP 5, alkaline phosphatase 149. UA was positive for leukocyte esterase and bacteria. Flu a and B negative. Given Zosyn in the ED. Assessment -Ureteral stone in the setting of fever and pyelonephritis Plan -Strain urine -Urology consulted, plan for urgent stenting tonight -Flomax, maintenance fluids, pain control and nausea control -Urine cultures pending, blood cultures pending -Imipenem, vancomycin started FEN/GI: N.p.o. after midnight. Otherwise will need heart healthy and diabetic diet. DVT ppx: SCDs CODE STATUS: Full code as discussed with patient and DISPO: Telemetry (2) Fever: Tylenol as needed fever (3) Nausea: Zofran, Compazine (4) Pyelonephritis: Antibiotics as above, urine cultures pending. Can switch to p.o. pending culture results. (5) Uterine cancer: Chemotherapy ongoing. (6) IDDM (insulin dependent diabetes mellitus): Continue home insulin therapy. Lantus halved while n.p.o. (7) Hypothyroidism: Continue home thyroid medicine (8) Anxiety disorder, unspecified: Continue home medications including bupropion 300 mg p.o. every morning, buspirone 20 mg p.o. 3 times daily, clonazepam 1 mg p.o. at bedtime, duloxetine 60 mg p.o. twice daily, quetiapine 25 mg p.o. 3 times daily as needed, trazodone 100 mg p.o. at bedtime. (9) Elevated troponin: No ischemic symptoms at this time -Admit to telemetry -will trend. -Likely multifactorial given undergoing chemotherapy at this time, hypermetabolic state. History of Present Illness Chief Complaint: achiness, fevers, pyelo Primary Care Provider: Moustapha Dey MD Arlin is a 68-year-old female who presents to the ER with complaints of feeling unwell, fevers, rigors. Her past medical history is significant for chemotherapy for uterine cancer ongoing. She has a past medical history also significant for recurrent nephrolithiasis requiring stents in the past. Her CT scan of the abdomen and pelvis was positive for 5 mm obstructing ureteral stone on the right, pyelonephritis of the left kidney. CTA of the chest was negative for PE. Chest x-ray unremarkable. White blood cell count was elevated 18. Anemia noted H&H 11.2/34. Chemistry profile was significant for slightly elevated glucose 124, elevated troponin 0.2, CRP 5, alkaline phosphatase 149. UA was positive for leukocyte esterase and bacteria. Flu a and B negative. 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 Social: Does not drink or smoke Allergies Allergy/AdvReac Type Severity Reaction Status Date / Time ciprofloxacin AdvReac Intermediate ALTERED Verified 01/17/19 21:26 MENTAL STATE,AGITATED Cipro AdvReac Unknown ALTERED Verified 01/12/18 08:29 MENTAL STATE,AGITATED Home Medications Home Medications Medication Instructions Recorded Confirmed Type Centrum Silver 1 tab PO HS 09/14/18 01/17/19 History Novolog Flexpen U-100 Insulin 40 units SUBCUT QAM 09/14/18 01/17/19 History aripiprazole 2.5 mg PO QAM 09/14/18 01/17/19 History atorvastatin 10 mg PO QAM 09/14/18 01/17/19 History bupropion HCl 300 mg PO QAM 09/14/18 01/17/19 History buspirone 20 mg PO TID 09/14/18 01/17/19 History cholecalciferol (vitamin D3) 3,000 unit PO QPM 09/14/18 01/17/19 History [Vitamin D3] clonazepam 1 mg PO HS 09/14/18 01/17/19 History duloxetine 60 mg PO BID 09/14/18 01/17/19 History levomefolate-algal oil [Deplin 15 mg PO QAM 09/14/18 01/17/19 History (algal oil)] levothyroxine 112 mcg PO QAM 09/14/18 01/17/19 History linaclotide 290 mg PO QAM 09/14/18 01/17/19 History liothyronine 5 mcg PO QAM 09/14/18 01/17/19 History liraglutide 1.8 mg SUBCUT QAM 09/14/18 01/17/19 History omeprazole 40 mg PO BID 09/14/18 01/17/19 History sucralfate 1 g PO UD 09/14/18 01/17/19 History trazodone 100 mg PO HS 09/14/18 01/17/19 History Lantus U-100 Insulin 65 unit SUBCUT HS 09/21/18 01/17/19 History Ocuvite with Lutein 1 tab PO BID 12/06/18 01/17/19 History ondansetron HCl [Zofran] 4 mg PO TID PRN 12/06/18 01/17/19 History oxycodone 5 mg PO Q4H PRN 12/06/18 01/17/19 History quetiapine [Seroquel] 25 mg PO TID PRN 12/06/18 01/17/19 History dexamethasone 20 mg PO DIRECTED PRN 01/17/19 01/17/19 History ibuprofen 200 mg PO QID PRN 01/17/19 01/17/19 History Past Med/Surg History Medical History Depression (Chronic) Kidney stones (Chronic) Renal mass, left Hypothyroidism (Chronic) IDDM (insulin dependent diabetes mellitus) (Chronic) Anxiety disorder, unspecified (Chronic) Barretts esophagus Cancer CERVICAL CANCER (SURGERY) ANAL CANCER 2006 (CHEMO AND RADIATION [place]) Diabetes mellitus, type 2 Endometrial cancer Gastroparesis Hyperlipidemia Obesity (BMI 30-39.9) Sleep apnea CPAP Surgical History H/O bilateral salpingo-oophorectomy H/O partial nephrectomy LEFT SIDE D/T TUMOR History of arthroscopy RT KNEE History of colonoscopy History of conization of cervix History of cystoscopy STONE EXTRACTION History of dilatation and curettage History of esophagogastroduodenoscopy (EGD) History of flexible sigmoidoscopy History of hysterectomy History of lithotripsy History of tooth extraction Family History Brother Family history of diabetes mellitus Social History Preferred Language: Indonesian Beliefs That Will Affect Care: None Current Living Situation: Spouse Feels Safe at Home: Yes Smoking Status: Never smoker Hx Alcohol Use: No Hx Substance Use: No Review of Systems All systems reviewed & are unremarkable except as noted in HPI & below (Endorses headache, nausea. Chronic shooting pains in her legs due to chemo.) Physical Exam Vital Signs (Past 24 Hours): Last Vital Signs Temp 37.5 C 01/17/19 18:48 Pulse 110 H 01/17/19 22:29 Resp 19 01/17/19 22:29 BP 134/64 01/17/19 22:29 Pulse Ox 96 01/17/19 22:29 Physical Exam: Vitals noted as above and within normal limits with the exception of tachycardia. at bedside. GENERAL: Awake, alert to person, place, and time, nontoxic-appearing, in no distress HENT: Normocephalic, atraumatic. . Mucus membranes appear moist. EYES: Normal conjunctiva. Sclera non-icteric. EOMI. NECK: Supple. Full range of motion. No JVD RESPIRATORY: Clear to auscultation. Normal work of breathing. CARDIAC: Regular rate, normal rhythm. Extremities warm and well perfused, 2+ radial pulses bilaterally; 2+ posterior tibialis pulses bilaterally. ABDOMEN: Soft, non-distended. No tenderness to palpation in all four quadrants. No rebound or guarding. No masses. Bowel sounds are normal. LOWER EXTREMITIES: Inspection of calves reveal equal size bilaterally. They are non-tender. No edema. No discoloration. NEURO: No focal gross focal motor deficits noted. Sensation in tact. CN II-XII grossly in tact. SKIN: Rash not present. No jaundice noted. Significant lesions not present. PSYCH: Appropriate mood and affect. Cooperative. Exam as done by Carlyn Knowles MD, [facility] [employer]. Results & Data Laboratory Results 01/17/19 01/17/19 01/17/19 Range/Units 21:00 19:45 19:45 WBC (4.8-10.8) K/uL RBC (4.2-5.4) M/uL Hgb (12.0-16.0) g/dL Hct (37-47) % MCV (80-100) fL MCH (25-34) pg MCHC (32-36) g/dL RDW Std Deviation (36.4-46.3) fL RDW Coeff of Leigha (11.5-14.5) % Plt Count (130-400) K/uL MPV (7.4-10.4) fL Immature Gran % (Auto) % Neut % (Auto) % Lymph % (Auto) % Crisp % (Auto) % Eos % (Auto) % Baso % (Auto) % Immature Gran # (Auto) (0.00-0.02) K/uL Neut # (Auto) (1.4-6.5) K/uL Lymph # (Auto) (1.2-3.4) K/uL Crisp # (Auto) (0.11-0.59) K/uL Eos # (Auto) (0-0.5) K/uL Baso # (Auto) (0-0.2) K/uL Toxic Granulation Toxic Vacuolation Ovalocytes ESR (0-21) mm/hr PT (9.0-12.0) Seconds INR (0.9-1.1) APTT (21.0-31.0) Seconds PTT Ratio Sodium 134 L (136-145) mmol/L Potassium 4.0 (3.5-5.1) mmol/L Chloride 102 (98-107) mmol/L Carbon Dioxide 25 (21-32) mmol/L Anion Gap 7.0 (3-11) BUN 15 (7-18) mg/dl Creatinine 1.01 (0.6-1.2) mg/dl Est Cr Clr Drug Dosing 74.6 ml/min Est GFR ( Amer) 66.7 Est GFR (Non-Af Amer) 57.6 BUN/Creatinine Ratio 15.0 (10-20) Glucose 124 H (70-99) mg/dl Lactate 0.9 (0.4-2.0) mmol/L Calcium 8.4 L (8.5-10.1) mg/dl Magnesium 1.8 (1.8-2.4) mg/dl Total Bilirubin 0.4 (0.2-1) mg/dl AST 13 L (15-37) U/L ALT 26 (12-78) U/L Alkaline Phosphatase 149 H (45-117) U/L Troponin I 0.217 H* (0-0.045) ng/ml C-Reactive Protein 5.00 H (0-0.29) mg/dl Total Protein 6.4 (6.4-8.2) gm/dl Albumin 3.1 L (3.4-5.0) gm/dl Globulin 3.3 (2.5-4.0) gm/dl Albumin/Globulin Ratio 0.9 (0.9-2) Urine Color Yellow Urine Appearance Clear (Clear) Urine pH 6.5 (4.5-7.5) Ur Specific [place] 1.010 (1.000-1.030) Urine Protein Negative (Negative) Urine Glucose (UA) Negative (Negative) Urine Ketones Negative (Negative) Urine Blood 2+ H (Negative) Urine Nitrite Negative (Negative) Urine Bilirubin Negative (Negative) Urine Urobilinogen Negative (Negative) Ur Leukocyte Esterase 1+ H (Negative) Urine WBC (Auto) >30 H (0-5) /hpf Urine RBC (Auto) 0-4 (0-4) /hpf U Hyaline Cast (Auto) 1-5 (0-5) /lpf U Epithel Cells (Auto) 0-5 (0-5) /lpf Urine Bacteria (Auto) 4+ H (Negative) Influenza Type A (PCR) (Neg) Influenza Type B (PCR) (Neg) 01/17/19 01/17/19 01/17/19 Range/Units 19:45 19:45 19:45 WBC 18.10 H (4.8-10.8) K/uL RBC 4.05 L (4.2-5.4) M/uL Hgb 11.2 L (12.0-16.0) g/dL Hct 34.0 L (37-47) % MCV 84.0 (80-100) fL MCH 27.7 (25-34) pg MCHC 32.9 (32-36) g/dL RDW Std Deviation 48.7 H (36.4-46.3) fL RDW Coeff of Leigha 16.3 H (11.5-14.5) % Plt Count 127 L (130-400) K/uL MPV 9.6 (7.4-10.4) fL Immature Gran % (Auto) 1.5 % Neut % (Auto) 83.8 % Lymph % (Auto) 5.5 % Crisp % (Auto) 8.1 % Eos % (Auto) 0.8 % Baso % (Auto) 0.3 % Immature Gran # (Auto) 0.27 H (0.00-0.02) K/uL Neut # (Auto) 15.16 H (1.4-6.5) K/uL Lymph # (Auto) 1.00 L (1.2-3.4) K/uL Crisp # (Auto) 1.47 H (0.11-0.59) K/uL Eos # (Auto) 0.14 (0-0.5) K/uL Baso # (Auto) 0.06 (0-0.2) K/uL Toxic Granulation 3+ Toxic Vacuolation 1+ Ovalocytes 1+ ESR 62 H (0-21) mm/hr PT 10.9 (9.0-12.0) Seconds INR 1.1 (0.9-1.1) APTT 25.6 (21.0-31.0) Seconds PTT Ratio 0.9 Sodium (136-145) mmol/L Potassium (3.5-5.1) mmol/L Chloride (98-107) mmol/L Carbon Dioxide (21-32) mmol/L Anion Gap (3-11) BUN (7-18) mg/dl Creatinine (0.6-1.2) mg/dl Est Cr Clr Drug Dosing ml/min Est GFR ( Amer) Est GFR (Non-Af Amer) BUN/Creatinine Ratio (10-20) Glucose (70-99) mg/dl Lactate (0.4-2.0) mmol/L Calcium (8.5-10.1) mg/dl Magnesium (1.8-2.4) mg/dl Total Bilirubin (0.2-1) mg/dl AST (15-37) U/L ALT (12-78) U/L Alkaline Phosphatase (45-117) U/L Troponin I (0-0.045) ng/ml C-Reactive Protein (0-0.29) mg/dl Total Protein (6.4-8.2) gm/dl Albumin (3.4-5.0) gm/dl Globulin (2.5-4.0) gm/dl Albumin/Globulin Ratio (0.9-2) Urine Color Urine Appearance (Clear) Urine pH (4.5-7.5) Ur Specific [place] (1.000-1.030) Urine Protein (Negative) Urine Glucose (UA) (Negative) Urine Ketones (Negative) Urine Blood (Negative) Urine Nitrite (Negative) Urine Bilirubin (Negative) Urine Urobilinogen (Negative) Ur Leukocyte Esterase (Negative) Urine WBC (Auto) (0-5) /hpf Urine RBC (Auto) (0-4) /hpf U Hyaline Cast (Auto) (0-5) /lpf U Epithel Cells (Auto) (0-5) /lpf Urine Bacteria (Auto) (Negative) Influenza Type A (PCR) (Neg) Influenza Type B (PCR) (Neg) 01/17/19 Range/Units 19:30 WBC (4.8-10.8) K/uL RBC (4.2-5.4) M/uL Hgb (12.0-16.0) g/dL Hct (37-47) % MCV (80-100) fL MCH (25-34) pg MCHC (32-36) g/dL RDW Std Deviation (36.4-46.3) fL RDW Coeff of Leigha (11.5-14.5) % Plt Count (130-400) K/uL MPV (7.4-10.4) fL Immature Gran % (Auto) % Neut % (Auto) % Lymph % (Auto) % Crisp % (Auto) % Eos % (Auto) % Baso % (Auto) % Immature Gran # (Auto) (0.00-0.02) K/uL Neut # (Auto) (1.4-6.5) K/uL Lymph # (Auto) (1.2-3.4) K/uL Crisp # (Auto) (0.11-0.59) K/uL Eos # (Auto) (0-0.5) K/uL Baso # (Auto) (0-0.2) K/uL Toxic Granulation Toxic Vacuolation Ovalocytes ESR (0-21) mm/hr PT (9.0-12.0) Seconds INR (0.9-1.1) APTT (21.0-31.0) Seconds PTT Ratio Sodium (136-145) mmol/L Potassium (3.5-5.1) mmol/L Chloride (98-107) mmol/L Carbon Dioxide (21-32) mmol/L Anion Gap (3-11) BUN (7-18) mg/dl Creatinine (0.6-1.2) mg/dl Est Cr Clr Drug Dosing ml/min Est GFR ( Amer) Est GFR (Non-Af Amer) BUN/Creatinine Ratio (10-20) Glucose (70-99) mg/dl Lactate (0.4-2.0) mmol/L Calcium (8.5-10.1) mg/dl Magnesium (1.8-2.4) mg/dl Total Bilirubin (0.2-1) mg/dl AST (15-37) U/L ALT (12-78) U/L Alkaline Phosphatase (45-117) U/L Troponin I (0-0.045) ng/ml C-Reactive Protein (0-0.29) mg/dl Total Protein (6.4-8.2) gm/dl Albumin (3.4-5.0) gm/dl Globulin (2.5-4.0) gm/dl Albumin/Globulin Ratio (0.9-2) Urine Color Urine Appearance (Clear) Urine pH (4.5-7.5) Ur Specific [place] (1.000-1.030) Urine Protein (Negative) Urine Glucose (UA) (Negative) Urine Ketones (Negative) Urine Blood (Negative) Urine Nitrite (Negative) Urine Bilirubin (Negative) Urine Urobilinogen (Negative) Ur Leukocyte Esterase (Negative) Urine WBC (Auto) (0-5) /hpf Urine RBC (Auto) (0-4) /hpf U Hyaline Cast (Auto) (0-5) /lpf U Epithel Cells (Auto) (0-5) /lpf Urine Bacteria (Auto) (Negative) Influenza Type A (PCR) Neg for Influ A (Neg) Influenza Type B (PCR) Neg for Influ B (Neg) Supervising Physician Co-Signing Physician Notes Patient seen and examined, chart reviewed, case discussed with Dr. Knowles and I agree with her assessment and plan as documented above. Briefly, patient is a 68yo female with history of endometrial cancer on chemotherapy, DM, HLP, obesity presenting with feeling ill, subjective fevers, body aches, nausea and leg pain. She was found to have a 5mm obstructing stone at the distal right ureter with mild hydronephrosis as well as left pyelonephritis and cystitis. On exam she is afebrile, sinus tachycardia at 113bpm, NAD, chronically ill in appearance Skin: no rash HEENT: MMM, neck supple, no JVD Heart: +S1/S2, regular, no m/r/g Lungs: CTA, no rales/rhonchi/wheezes Abd: +BS, soft, NT/ND Ext: leg tenderness bilaterally. 2+ pulses, sensation intact, strength 5+ bilaterally Labs and image reviewed. Significant for leukocytosis, WBC=10.8, neutrophil predominant, ESR=62, CRP=5, Trop=0.217, UA with +WBC and bacteria Imaging with findings as above Assessment/Plan: 68yo female with endometrial CA on chemotherapy presenting with left pyelonephritis and obstructing renal stone on right. -Will admit to medical floor. NPO. Broad antibiotic coverage with Vancomycin and Imipenem. IVF. Pain and nausea control. Strain urine. Patient seen by Urology ron, plan to proceed to OR for urgent stent placement. Appreciate assistance with this case. -repeat troponin x 1 to assess trend Resident Activity Tracking Resident Involvement: Resident Care Provided Care Provided: Adult Hospital Medicine (1) Fever Fever type: unspecified Qualified Code(s): R50.9 - Fever, unspecified (2) Uterine cancer Malignant neoplasm of uterus location: unspecified site of uterus Qualified Code(s): C55 - Malignant neoplasm of uterus, part unspecified
--- NOTE | 2019-01-18 00:18 | Urology Consultation ---
Date of Consultation January 18, 2019 Assessment & Plan (1) Calculus, ureteral: Patient will be brought to the operating room tonight for right stent placement. Procedure risks and benefits discussed with the patient as per the consent all of her questions were answered and she agrees to proceed History of Present Illness History of Present Illness Patient is a 68-year-old white female. She is currently receiving chemotherapy for uterine cancer. She developed fever shaking chills so came to the emergency room. Evaluation including a CT scan showed a distal right ureteral calculus with proximal hydronephrosis. She is not having significant flank pain currently. She has had a partial nephrectomy on the left side. Because of the fever and obstructed kidney she is going to be brought to the operating room for urgent stent placement Allergies Allergy/AdvReac Type Severity Reaction Status Date / Time ciprofloxacin AdvReac Intermediate ALTERED Verified 01/17/19 21:26 MENTAL STATE,AGITATED Cipro AdvReac Unknown ALTERED Verified 01/12/18 08:29 MENTAL STATE,AGITATED Home Medications Home Medications Medication Instructions Recorded Confirmed Type Centrum Silver 1 tab PO HS 09/14/18 01/17/19 History Novolog Flexpen U-100 Insulin 40 units SUBCUT QAM 09/14/18 01/17/19 History aripiprazole 2.5 mg PO QAM 09/14/18 01/17/19 History atorvastatin 10 mg PO QAM 09/14/18 01/17/19 History bupropion HCl 300 mg PO QAM 09/14/18 01/17/19 History buspirone 20 mg PO TID 09/14/18 01/17/19 History cholecalciferol (vitamin D3) 3,000 unit PO QPM 09/14/18 01/17/19 History [Vitamin D3] clonazepam 1 mg PO HS 09/14/18 01/17/19 History duloxetine 60 mg PO BID 09/14/18 01/17/19 History levomefolate-algal oil [Deplin 15 mg PO QAM 09/14/18 01/17/19 History (algal oil)] levothyroxine 112 mcg PO QAM 09/14/18 01/17/19 History linaclotide 290 mg PO QAM 09/14/18 01/17/19 History liothyronine 5 mcg PO QAM 09/14/18 01/17/19 History liraglutide 1.8 mg SUBCUT QAM 09/14/18 01/17/19 History omeprazole 40 mg PO BID 09/14/18 01/17/19 History sucralfate 1 g PO UD 09/14/18 01/17/19 History trazodone 100 mg PO HS 09/14/18 01/17/19 History Lantus U-100 Insulin 65 unit SUBCUT HS 09/21/18 01/17/19 History Ocuvite with Lutein 1 tab PO BID 12/06/18 01/17/19 History ondansetron HCl [Zofran] 4 mg PO TID PRN 12/06/18 01/17/19 History oxycodone 5 mg PO Q4H PRN 12/06/18 01/17/19 History quetiapine [Seroquel] 25 mg PO TID PRN 12/06/18 01/17/19 History dexamethasone 20 mg PO DIRECTED PRN 01/17/19 01/17/19 History ibuprofen 200 mg PO QID PRN 01/17/19 01/17/19 History Patient History Medical History Depression (Chronic) Kidney stones (Chronic) Renal mass, left Hypothyroidism (Chronic) IDDM (insulin dependent diabetes mellitus) (Chronic) Anxiety disorder, unspecified (Chronic) Barretts esophagus Cancer CERVICAL CANCER (SURGERY) ANAL CANCER 2006 (CHEMO AND RADIATION [place]) Diabetes mellitus, type 2 Endometrial cancer Gastroparesis Hyperlipidemia Obesity (BMI 30-39.9) Sleep apnea CPAP Surgical History H/O bilateral salpingo-oophorectomy H/O partial nephrectomy LEFT SIDE D/T TUMOR History of arthroscopy RT KNEE History of colonoscopy History of conization of cervix History of cystoscopy STONE EXTRACTION History of dilatation and curettage History of esophagogastroduodenoscopy (EGD) History of flexible sigmoidoscopy History of hysterectomy History of lithotripsy History of tooth extraction Family History Brother Family history of diabetes mellitus Social History Preferred Language: Yoruba Beliefs That Will Affect Care: None Current Living Situation: Spouse Feels Safe at Home: Yes Smoking Status: Never smoker Hx Alcohol Use: No Hx Substance Use: No Review of Systems Review of systems evaluated from her emergency room visit and admitting H&P Physical Exam Vital Signs (Past 24 Hours): Last Vital Signs Temp 37.5 C 01/17/19 18:48 Pulse 110 H 01/17/19 22:29 Resp 19 01/17/19 22:29 BP 134/64 01/17/19 22:29 Pulse Ox 96 01/17/19 22:29 Physical Exam: Developed well-nourished white female mild distress Neurologically alert and oriented x3 Lungs are clear to auscultation Cardiac shows a regular rate and rhythm without murmur Abdomen benign Extremities without calf pain or edema Results & Data Laboratory Results Laboratory Results - last 24 hr 01/17/19 01/17/19 01/17/19 19:30 19:45 19:45 WBC 18.10 H RBC 4.05 L Hgb 11.2 L Hct 34.0 L MCV 84.0 MCH 27.7 MCHC 32.9 RDW Std Deviation 48.7 H RDW Coeff of Leigha 16.3 H Plt Count 127 L MPV 9.6 Immature Gran % (Auto) 1.5 Neut % (Auto) 83.8 Lymph % (Auto) 5.5 [place] % (Auto) 8.1 Eos % (Auto) 0.8 Baso % (Auto) 0.3 Immature Gran # (Auto) 0.27 H Neut # (Auto) 15.16 H Lymph # (Auto) 1.00 L [place] # (Auto) 1.47 H Eos # (Auto) 0.14 Baso # (Auto) 0.06 Toxic Granulation 3+ Toxic Vacuolation 1+ Ovalocytes 1+ ESR 62 H PT INR APTT PTT Ratio Sodium Potassium Chloride Carbon Dioxide Anion Gap BUN Creatinine Est Cr Clr Drug Dosing Est GFR ( Amer) Est GFR (Non-Af Amer) BUN/Creatinine Ratio Glucose Lactate Calcium Magnesium Total Bilirubin AST ALT Alkaline Phosphatase Troponin I C-Reactive Protein Total Protein Albumin Globulin Albumin/Globulin Ratio Urine Color Urine Appearance Urine pH Ur Specific [place] Urine Protein Urine Glucose (UA) Urine Ketones Urine Blood Urine Nitrite Urine Bilirubin Urine Urobilinogen Ur Leukocyte Esterase Urine WBC (Auto) Urine RBC (Auto) U Hyaline Cast (Auto) U Epithel Cells (Auto) Urine Bacteria (Auto) Influenza Type A (PCR) Neg for Influ A Influenza Type B (PCR) Neg for Influ B 01/17/19 01/17/19 01/17/19 19:45 19:45 19:45 WBC RBC Hgb Hct MCV MCH MCHC RDW Std Deviation RDW Coeff of Leigha Plt Count MPV Immature Gran % (Auto) Neut % (Auto) Lymph % (Auto) [place] % (Auto) Eos % (Auto) Baso % (Auto) Immature Gran # (Auto) Neut # (Auto) Lymph # (Auto) [place] # (Auto) Eos # (Auto) Baso # (Auto) Toxic Granulation Toxic Vacuolation Ovalocytes ESR PT 10.9 INR 1.1 APTT 25.6 PTT Ratio 0.9 Sodium 134 L Potassium 4.0 Chloride 102 Carbon Dioxide 25 Anion Gap 7.0 BUN 15 Creatinine 1.01 Est Cr Clr Drug Dosing 74.6 Est GFR ( Amer) 66.7 Est GFR (Non-Af Amer) 57.6 BUN/Creatinine Ratio 15.0 Glucose 124 H Lactate 0.9 Calcium 8.4 L Magnesium 1.8 Total Bilirubin 0.4 AST 13 L ALT 26 Alkaline Phosphatase 149 H Troponin I 0.217 H* C-Reactive Protein 5.00 H Total Protein 6.4 Albumin 3.1 L Globulin 3.3 Albumin/Globulin Ratio 0.9 Urine Color Urine Appearance Urine pH Ur Specific [place] Urine Protein Urine Glucose (UA) Urine Ketones Urine Blood Urine Nitrite Urine Bilirubin Urine Urobilinogen Ur Leukocyte Esterase Urine WBC (Auto) Urine RBC (Auto) U Hyaline Cast (Auto) U Epithel Cells (Auto) Urine Bacteria (Auto) Influenza Type A (PCR) Influenza Type B (PCR) 01/17/19 21:00 WBC RBC Hgb Hct MCV MCH MCHC RDW Std Deviation RDW Coeff of Leigha Plt Count MPV Immature Gran % (Auto) Neut % (Auto) Lymph % (Auto) [place] % (Auto) Eos % (Auto) Baso % (Auto) Immature Gran # (Auto) Neut # (Auto) Lymph # (Auto) [place] # (Auto) Eos # (Auto) Baso # (Auto) Toxic Granulation Toxic Vacuolation Ovalocytes ESR PT INR APTT PTT Ratio Sodium Potassium Chloride Carbon Dioxide Anion Gap BUN Creatinine Est Cr Clr Drug Dosing Est GFR ( Amer) Est GFR (Non-Af Amer) BUN/Creatinine Ratio Glucose Lactate Calcium Magnesium Total Bilirubin AST ALT Alkaline Phosphatase Troponin I C-Reactive Protein Total Protein Albumin Globulin Albumin/Globulin Ratio Urine Color Yellow Urine Appearance Clear Urine pH 6.5 Ur Specific [place] 1.010 Urine Protein Negative Urine Glucose (UA) Negative Urine Ketones Negative Urine Blood 2+ H Urine Nitrite Negative Urine Bilirubin Negative Urine Urobilinogen Negative Ur Leukocyte Esterase 1+ H Urine WBC (Auto) >30 H Urine RBC (Auto) 0-4 U Hyaline Cast (Auto) 1-5 U Epithel Cells (Auto) 0-5 Urine Bacteria (Auto) 4+ H Influenza Type A (PCR) Influenza Type B (PCR) Diagnostic Findings I reviewed her CT scan she does have a distal 5 mm right ureteral calculus with proximal hydronephrosis
[2019-01-18] MEDS ORDERED: IOTHALAMATE MEGLUMINE II 17.2% 250 ML VIAL ONE (00:35)
[2019-01-18] MEDS ORDERED: MIDAZOLAM HCL 1 MG/ML 2ML VIAL ONE ×2 (00:36→01:04)
[2019-01-18] MEDS ORDERED: fentaNYL citrate 100 MCG/2 ML VIAL ONE (00:37)
--- NOTE | 2019-01-18 00:41 | Anesthesiology Consultation ---
Date of Service January 18, 2019 Assessment & Plan (1) Encounter for pre-operative examination: Chart Review Chart Review: Acceptable Risk for Surgery Consults Requested medical & cardiac Pulmonary ASA ASA3 Proposed Anesthesia Anesthesia Type: MAC Risk / Benefits Reviewed With: PT / POA / Parent / Guardian, Accepts Plan and Informed Consent Obtained NPO Date Last Intake of Fluids: 01/17/19 Time Last Intake of Fluids: 23:30 Date Last Intake of Solids: 01/17/19 Time Last Intake of Solids: 23:30 History Height/Weight Height: 5 ft 9 in Weight: 119.2 kg Allergies Allergy/AdvReac Type Severity Reaction Status Date / Time ciprofloxacin AdvReac Intermediate ALTERED Verified 01/17/19 21:26 MENTAL STATE,AGITATED Cipro AdvReac Unknown ALTERED Verified 01/12/18 08:29 MENTAL STATE,AGITATED Medications Home Medications Medication Instructions Recorded Confirmed Last Taken Centrum Silver 1 tab PO HS 09/14/18 01/17/19 01/16/19 Novolog Flexpen U-100 Insulin 40 units SUBCUT QAM 09/14/18 01/17/19 01/17/19 aripiprazole 2.5 mg PO QAM 09/14/18 01/17/19 01/17/19 atorvastatin 10 mg PO QAM 09/14/18 01/17/19 01/16/19 12:00 bupropion HCl 300 mg PO QAM 09/14/18 01/17/19 01/17/19 buspirone 20 mg PO TID 09/14/18 01/17/19 01/17/19 cholecalciferol (vitamin D3) 3,000 unit PO QPM 09/14/18 01/17/19 01/16/19 [Vitamin D3] clonazepam 1 mg PO HS 09/14/18 01/17/19 01/16/19 duloxetine 60 mg PO BID 09/14/18 01/17/19 01/17/19 levomefolate-algal oil [Deplin 15 mg PO QAM 09/14/18 01/17/19 01/17/19 (algal oil)] levothyroxine 112 mcg PO QAM 09/14/18 01/17/19 01/17/19 linaclotide 290 mg PO QAM 09/14/18 01/17/19 01/17/19 liothyronine 5 mcg PO QAM 09/14/18 01/17/19 01/17/19 liraglutide 1.8 mg SUBCUT QAM 09/14/18 01/17/19 01/17/19 omeprazole 40 mg PO BID 09/14/18 01/17/19 01/17/19 sucralfate 1 g PO UD 09/14/18 01/17/19 12/01/18 09:00 trazodone 100 mg PO HS 09/14/18 01/17/19 01/16/19 75MG Lantus U-100 Insulin 65 unit SUBCUT HS 09/21/18 01/17/19 01/16/19 Ocuvite with Lutein 1 tab PO BID 12/06/18 01/17/19 01/17/19 ondansetron HCl [Zofran] 4 mg PO TID PRN 12/06/18 01/17/19 01/17/19 12:00 8MG oxycodone 5 mg PO Q4H PRN 12/06/18 01/17/19 01/17/19 14:00 10MG quetiapine [Seroquel] 25 mg PO TID PRN 12/06/18 01/17/19 01/16/19 dexamethasone 20 mg PO DIRECTED PRN 01/17/19 01/17/19 01/04/19 ibuprofen 200 mg PO QID PRN 01/17/19 01/17/19 01/17/19 10:00 800MG Active Medications Generic Name Dose Route Start Last Admin Trade Name Freq PRN Reason Stop Dose Admin Ioversol 119 ml 01/17/19 22:07 01/17/19 22:08 Optiray 320 125ml IV 01/21/19 22:06 119 ml ONCE PRN Administration Interaction Checking Past Medical History Medical History Depression (Chronic) Kidney stones (Chronic) Renal mass, left Hypothyroidism (Chronic) IDDM (insulin dependent diabetes mellitus) (Chronic) Anxiety disorder, unspecified (Chronic) Barretts esophagus Cancer CERVICAL CANCER (SURGERY) ANAL CANCER 2006 (CHEMO AND RADIATION [place]) Diabetes mellitus, type 2 Endometrial cancer Gastroparesis Hyperlipidemia Obesity (BMI 30-39.9) Sleep apnea CPAP Past Family History Family History Brother Family history of diabetes mellitus Past Surgical History Surgical History H/O bilateral salpingo-oophorectomy H/O partial nephrectomy LEFT SIDE D/T TUMOR History of arthroscopy RT KNEE History of colonoscopy History of conization of cervix History of cystoscopy STONE EXTRACTION History of dilatation and curettage History of esophagogastroduodenoscopy (EGD) History of flexible sigmoidoscopy History of hysterectomy History of lithotripsy History of tooth extraction Past Anesthesia History No Hx of Anesthesia Complications and No Family Hx of Anesthesia Complications History of PONV No Motion Sickness Screening History of Motion Sickness: No Social History Smoking Status: Never smoker tobacco type: cigarettes Hx Alcohol Use: No Alcohol type: wine alcohol intake frequency: holidays/special occasions only Hx Substance Use: No substance use type: does not use Exercise / Class Metabolic Activity III < 4 Walking/Shop/Light housework Physical Exam Vital Signs Last Vital Signs Temp 99.5 F 01/17/19 18:48 Pulse 68 01/18/19 00:37 Resp 16 01/18/19 00:37 BP 132/82 01/18/19 00:37 Pulse Ox 98 01/18/19 00:37 ENMT Mouth: no dentition abnormality Thyromental Distance: > or= 3.5 Finger Breadths Mallampati Class: II Neck normal visual inspection Respiratory normal respiratory effort Auscultation: lungs clear to auscultation bilaterally Cardiovascular Rate/Rhythm: regular rate and regular rhythm Testing Electrocardiogram Date: 09/14/18 Findings: + NSR @ (82 bpm) and + RBBB (incomplete) Laboratory Results 01/17/19 19:45 01/17/19 19:45 PT 10.9 Seconds (9.0-12.0) 01/17/19 19:45 INR 1.1 (0.9-1.1) 01/17/19 19:45 APTT 25.6 Seconds (21.0-31.0) 01/17/19 19:45 Urine Color Yellow 01/17/19 21:00 Urine Appearance Clear (Clear) 01/17/19 21:00 Urine pH 6.5 (4.5-7.5) 01/17/19 21:00 Ur Specific [place] 1.010 (1.000-1.030) 01/17/19 21:00 Urine Protein Negative (Negative) 01/17/19 21:00 Urine Glucose (UA) Negative (Negative) 01/17/19 21:00 Urine Ketones Negative (Negative) 01/17/19 21:00 Urine Nitrite Negative (Negative) 01/17/19 21:00 Ur Leukocyte Esterase 1+ (Negative) H 01/17/19 21:00 Urine WBC (Auto) >30 /hpf (0-5) H 01/17/19 21:00 Urine RBC (Auto) 0-4 /hpf (0-4) 01/17/19 21:00 U Hyaline Cast (Auto) 1-5 /lpf (0-5) 01/17/19 21:00 U Epithel Cells (Auto) 0-5 /lpf (0-5) 01/17/19 21:00 Urine Bacteria (Auto) 4+ (Negative) H 01/17/19 21:00
[2019-01-18] MEDS ORDERED: ONDANSETRON INJ 2 MG/ML 2 ML VIAL IV PRN ×2 (00:42→02:17)
[2019-01-18] MEDS ORDERED: ePHEDrine sulfate 50 MG/ML AMP IV PRN (00:42)
[2019-01-18] MEDS ORDERED: ATROPINE SULFATE 0.1 MG/ML 10ML SYR IV PRN (00:42)
[2019-01-18] MEDS ORDERED: fentaNYL citrate 100 MCG/2 ML VIAL IV PRN (00:42)
[2019-01-18] MEDS ORDERED: PROPOFOL IV EMULSION 10 MG/ML 20 ML VIAL IV ONE (01:14)
--- NOTE | 2019-01-18 01:27 | Operative Report ---
Post Operative Report Pre & Post Diagnosis Operation Date: 01/18/19 01:10 <No data on this case meets the specified criteria> Preop and postop diagnosis Obstructing distal right ureteral calculus Procedure Operation Date: 01/18/19 01:10 <No data on this case meets the specified criteria> Cystoscopy right retrograde pyelogram placement of indwelling double-J right ureteral stent 6 Malagasy by 26 cm Surgeon Lloyd Rosado MD Mooner None Estimated Blood Loss 0 Findings Consistent with Post-Op Diagnosis Cystoscopic exam revealed a normal urethra bladder showed a lot of inflammation right retrograde showed proximal hydroureteronephrosis Specimens None Drains 6 Malagasy by 26 cm right ureteral stent Anesthesia Type MAC Complications none Disposition Accompanied Patient To Recovery: Yes Disposition: Recovery Room Indications Patient is a 68-year-old white female who receives chemotherapy for uterine cancer developed fever and shaking chills came to the ER where CT scan showed a distal right ureteral stone she is being brought to the operating room for emergent stent placement Description of Procedure Patient was quickly identified and after the induction of an adequate level of intravenous sedation and appropriate timeout patient was placed in the dorsolithotomy position. Lower abdomen and genitalia were prepped with Hibiclens and draped in a sterile fashion. Next using a 22 Malagasy cystoscope routine cystoscopic exam was performed. Next a 0.035 guidewire was passed up the right ureter under fluoroscopic guidance and then over this a 5 Malagasy open- ended catheter was placed and a retrograde pyelogram was performed the open- ended catheter was then removed and a 6 Malagasy by 26 cm stent was passed over the guidewire until positioned in the renal pelvis confirmed by fluoroscopy the guidewire was removed there was a good curl at the bladder level. Patient's bladder was drained cystoscope and sheath removed. All needle sponge and instru ment counts were correct at the end of the case. Patient tolerated the procedure well and was taken to the recovery room in stable condition I attest to the content of the Intraoperative Record and any orders documented therein. Any exceptions are noted below.
--- NOTE | 2019-01-18 01:32 | Anesthesiology Progress Note ---
Date of Service January 18, 2019 Anesthesia Post Procedure Vital Signs Vital Signs: Temp Pulse Pulse Resp BP BP Pulse Ox 01/18/19 00:37 68 16 132/82 98 01/18/19 00:00 115 H 16 131/68 98 01/17/19 22:29 110 H 19 134/64 96 01/17/19 20:53 108 H 18 128/71 92 01/17/19 20:05 123 H 18 144/72 H 92 01/17/19 18:48 99.5 F 137 H 18 172/97 H 97 Notes Mental Status: alert / awake / arousable and participated in evaluation Patient Amnestic to Procedure: Yes Nausea / Vomiting: adequately controlled Pain: adequately controlled Airway Patency, RR, SpO2: stable & adequate BP & HR: stable & adequate (Pt tachycardic preop) Hydration State: stable & adequate Anesthetic Complications: no major complications apparent and Pt Satisfied with anesthetic care
[2019-01-18] MEDS ORDERED: PROCHLORPERAZINE 10 MG in SYRINGE 8 ML IV PRN (02:17)
[2019-01-18] MEDS ORDERED: POLYETHYLENE (MIRALAX) 17 GM PACK PO PRN (02:17)
[2019-01-18] MEDS ORDERED: TAMSULOSIN HCL 0.4 MG CAP PO ONE (02:17)
[2019-01-18] MEDS ORDERED: ALUMINUM/MAGNESIUM SUSP 30 ML UDC PO PRN (02:17)
[2019-01-18] MEDS ORDERED: QUETIAPINE FUMARATE 25 MG TABLET PO PRN (02:17)
[2019-01-18] MEDS ORDERED: MAGNESIUM HYDROXIDE SUSP 30 ML UDC PO PRN (02:17)
[2019-01-18] MEDS ORDERED: VANCOMYCIN CONSULT ACTIVE PRN (02:17)
[2019-01-18] MEDS: ACETAMINOPHEN 325 MG TAB PO PRN ×2 (02:58→11:55)
[2019-01-18] MEDS: SODIUM CHLORIDE 0.9% 1000ML 1,000 ML IV SCH ×2 (02:58→14:26)
[2019-01-18] MEDS ORDERED: VANCOMYCIN HCL 2,750 MG in SODIUM CHLORIDE 0.9% 500 ML IV ONE (03:15)
[2019-01-18] MEDS: DULOXETINE HCL 60 MG CAP PO SCH ×3 (03:26→20:37)
[2019-01-18] MEDS: IMIPENEM/CILASTATIN SODIUM 500 MG in DEXTROSE 5% 100 ML IV SCH ×4 (03:31→21:46)
[2019-01-18] MEDS: HYDROmorphone INJ 1 MG/ML SYRINGE IV PRN ×5 (04:01→20:31)
[2019-01-18] MEDS: LEVOTHYROXINE SODIUM 112 MCG TABLET PO SCH (05:31)
[2019-01-18 06:58] LABS: Hematocrit (blood only) 30.5 % (37-47); Hemoglobin 9.8 g/dL (12.0-16.0); Mean Corpuscular Hgb Conc 32.1 g/dL (32-36); Mean Platelet Volume 9.3 fL (7.4-10.4); Platelet Count 120 K/uL (130-400); RDW Coefficient of Variation 16.6 % (11.5-14.5); Red Blood Count 3.59 M/uL (4.2-5.4); White Blood Count 15.84 K/uL (4.8-10.8)
[2019-01-18 07:10] LABS: INR 1.2 (0.9-1.1); Prothrombin Time 11.7 Seconds (9.0-12.0)
--- NOTE | 2019-01-18 07:18 | Fluoroscopy Report ---
FL retrograde includes kub CLINICAL HISTORY: RT SIDE STENT COMPARISON STUDY: 10/05/2017 FLUOROSCOPY TIME: 17 seconds. NUMBER OF FLUOROSCOPIC IMAGES: 4 FINDINGS: 4 fluoroscopic spot films from a right-sided retrograde study and stent placement are provi ded for interpretation. There is poor opacification of the right renal pelvis. There is evidence for mild right-sided hydronephrosis. The final image demonstrates the proximal pigtail of a right-sided n ephroureteral stent. IMPRESSION: Fluoroscopic spot images obtained during placement of a right-sided nephroureteral stent Electronically signed by: Joni Briones M.D. 01/18/2019 7:17 AM
[2019-01-18 07:24] LABS: Basophils # (auto) 0.05 K/uL (0-0.2); Basophils % (auto) 0.3 %; Eosinophils # (auto) 0.02 K/uL (0-0.5); Eosinophils % (auto) 0.1 %; Immature Granulocytes # (auto) 0.21 K/uL (0.00-0.02); Immature Granulocytes % (auto) 1.3 %; Lymphocytes # (auto) 1.58 K/uL (1.2-3.4); Monocytes # (auto) 1.51 K/uL (0.11-0.59); Monocytes % (auto) 9.5 %; Neutrophils # (auto) 12.47 K/uL (1.4-6.5); Neutrophils % (auto) 78.8 %
[2019-01-18 07:37] LABS: BUN Creatinine Ratio 11.2 (10-20); Calcium 7.6 mg/dl (8.5-10.1); Creatinine Clr Calc Pharmacy 70.3 ml/min; Est GFR (African American) 62.9; Est GFR (Non-African American) 54.3; Potassium 3.7 mmol/L (3.5-5.1)
[2019-01-18 07:50] LABS: Troponin I 0.338 ng/ml (0-0.045)
[2019-01-18] MEDS: PANTOprazole 40 MG TAB PO SCH ×2 (08:38→20:38)
[2019-01-18] MEDS: INSULIN ASPART 100 UNITS/ML 3 ML PEN SQ SCH ×4 (08:38→20:42)
[2019-01-18] MEDS: LIOTHYRONINE SODIUM 5 MCG TAB PO SCH (08:38)
[2019-01-18] MEDS: ARIPiprazole 5 MG TAB PO SCH (08:38)
[2019-01-18] MEDS: ATORVASTATIN 10 MG TAB PO SCH (08:38)
[2019-01-18] MEDS: SUCRALFATE 1 GM/10 ML UDC PO SCH ×4 (08:38→20:36)
[2019-01-18] MEDS: BuPROPion XL 300 MG TABCR PO SCH (08:38)
--- NOTE | 2019-01-18 09:40 | Pharmacy Report ---
Pharmacy Abx Dose Short Note - Date of Service January 18, 2019 - Assessment & Plan Assessment * Ms Lunsford is 68 year old F admitted with pyelonephritis, obstructing R ureteral calculus. She was taken to the OR overnight for emergency stent placement. * PMH is significant for IDDM, L partial nephrectomy, recurrent nephrolithiasis requiring previous stenting, gastroparesis * Patient is currently receiving chemotherapy for uterine CA -- last chemo ~01/07/19. * On admission, patient was tachycardic/febrile, WBC 18, lactic acid 0.9, UA with 1+ leuk esterase/4+ bacteria/>30 WBC * Blood and urine cultures are pending. Flu negative. * Patient received 1 dose of Zosyn in the ED and then was started on Vancomycin/Imipenem on admission. Plan Vancomycin * Loading dose: 2750mg (~23mg/kg) IV x1 dose, then * Maintenance dose: 1500mg (~13mg/kg) IV q14h * Patient's estimated p'kinetic parameters: * Aaron ~ 0.063/hr t1/2 ~ 11 hr Vd ~ 0.55 L/kg * Goal trough level for genitourinary indications: ~15 mcg/mL, pending C/S * Trough level ordered for: 01/20 prior to the 4th maintenance dose, to assess steady-state level * A less aggressive regimen has been selected d/t the likelihood of vancomycin to accumulate in the obese patient population (BMI 38kg/m2) Imipenem/Cilastatin 500mg IV q6h Pharmacy will continue to follow and will adjust dose/frequency as necessary. Thank you.
[2019-01-18] MEDS: [UNRECOGNIZED DRUG - OTHER] SCH ×2 (09:43→16:18)
--- NOTE | 2019-01-18 10:36 | Urology Progress Note ---
Date of Service January 18, 2019 Assessment & Plan (1) Calculus, ureteral: POD #1 s/p urgent R ureteral stent placement due to obstructing distal stone and fever. Fever has improved. Patient reports feeling much better, stent is not bothersome. Voiding without difficulty. Will arrange outpatient follow up with patient's established urologist Dr. Perkins within 2 weeks to discuss definitive stone treatment. When ready for discharge, recommend patient sent home with Tamsulosin QHS for stent comfort, antibiotic PRN pending urine and blood cultures. Thanks for allowing us to participate in the care of this patient. Please contact our service with additional questions/concerns. Subjective 68 YO female POD #1 s/p emergent cysto, R ureteral stent placement. Patient is resting comfortably upon entry to room, states that she feels much better this morning. Reports mild irritation in R flank, this is not too bothersome. Continues to void spontaneously without difficulty. No hematuria. Denies fever/chills. Denies nausea/vomiting. Constitutional: no fever and no chills Eyes: no problem reported Respiratory: no dyspnea Cardiovascular: no chest pain Gastrointestinal: no nausea and no vomiting Genitourinary (Female): + flank pain; no difficulty urinating Psychiatric: no problem reported Physical Exam Vital Signs (Past 24 Hours): Last Vital Signs Temp 36.4 C L 01/18/19 08:09 Pulse 100 H 01/18/19 09:00 Resp 22 01/18/19 08:09 BP 124/58 L 01/18/19 08:09 Pulse Ox 95 01/18/19 08:09 Physical Exam: WN/WD NAD. No labored breathing. No JVD. Abd soft/nontender. Bladder not tender or distended. A&O x 3, appropriate affect.
[2019-01-18] MEDS: OXYCODONE HCL IR 5 MG TAB (IMMEDIATE RELEASE) PO PRN (11:54)
[2019-01-18] MEDS: VANCOMYCIN HCL 1,500 MG in SODIUM CHLORIDE 0.9% 500 ML IV SCH (17:36)
[2019-01-18] MEDS: TRAZODONE HCL 50 MG TAB PO SCH (20:37)
[2019-01-18] MEDS: CEROVITE ADV FORMULA TAB PO SCH (20:38)
[2019-01-18] MEDS: CHOLECALCIFEROL 1,000 UNITS TAB PO SCH (20:38)
[2019-01-18] MEDS: INSULIN GLARGINE SOLOSTAR 100 UNITS/ML 3 ML PEN SC SCH (20:41)
[2019-01-18] MEDS: clonazePAM 1 MG TAB PO SCH (20:43)
--- NOTE | 2019-01-18 21:38 | Hospitalist Progress Note ---
Date of Service January 18, 2019 Assessment & Plan (1) Pyelonephritis: left, in setting of obstructing kidney stone. cont IV abx. follow cultures. (2) Calculus, ureteral: s/p urgent cystoscopy last night with right-sided ureteral stent placement. definitive stone management post-d/c. (3) Pleuritic chest pain: CTA chest neg for PE. order echo. serial troponins. does not sound cardiac however. Subjective patient c/o feeling tired and worn out. mild left sided abd pain/flank pain. also w/ mild pleuritic type pain over mid chest. tele stable overnight. Constitutional: + fever Respiratory: no cough and no dyspnea Cardiovascular: as per Subjective / HPI Gastrointestinal: no nausea and no vomiting Physical Exam Vital Signs (Past 24 Hours): Last Vital Signs Temp 37.5 C 01/18/19 19:06 Pulse 106 H 01/18/19 19:06 Resp 18 01/18/19 19:06 BP 93/66 L 01/18/19 19:06 Pulse Ox 95 01/18/19 19:06 Constitutional: well developed, well nourished and + obese; no acute distress and not ill appearing ENMT: external ear and nose normal, oropharynx normal Respiratory: normal respiratory effort, lungs clear to auscultation Cardiovascular: RRR, no murmur, no edema Heart Sounds: normal S1 and normal S2 Vessels: posterior tibial pulses present and dorsalis pedis pulses present Chest (Breasts): Additional Comments: no pain w/ palpation Gastrointestinal (Abdomen): normal bowel sounds, soft, nontender, no hepatosplenomegaly Musculoskeletal: minimal left flank pain to palpation Psychiatric: A+Ox3, euthymic affect Results & Data Laboratory Results Laboratory Results - last 24 hr 01/17/19 01/18/19 01/18/19 21:00 02:11 06:38 WBC 15.84 H RBC 3.59 L Hgb 9.8 L Hct 30.5 L MCV 85.0 MCH 27.3 MCHC 32.1 RDW Std Deviation 50.0 H RDW Coeff of Leigha 16.6 H Plt Count 120 L MPV 9.3 Immature Gran % (Auto) 1.3 Neut % (Auto) 78.8 Lymph % (Auto) 10.0 Posey % (Auto) 9.5 Eos % (Auto) 0.1 Baso % (Auto) 0.3 Immature Gran # (Auto) 0.21 H Neut # (Auto) 12.47 H Lymph # (Auto) 1.58 Posey # (Auto) 1.51 H Eos # (Auto) 0.02 Baso # (Auto) 0.05 PT INR Sodium Potassium Chloride Carbon Dioxide Anion Gap BUN Creatinine Est Cr Clr Drug Dosing Est GFR ( Amer) Est GFR (Non-Af Amer) BUN/Creatinine Ratio Glucose POC Glucose 147 H Calcium Troponin I Urine Color Yellow Urine Appearance Clear Urine pH 6.5 Ur Specific [place] 1.010 Urine Protein Negative Urine Glucose (UA) Negative Urine Ketones Negative Urine Blood 2+ H Urine Nitrite Negative Urine Bilirubin Negative Urine Urobilinogen Negative Ur Leukocyte Esterase 1+ H Urine WBC (Auto) >30 H Urine RBC (Auto) 0-4 U Hyaline Cast (Auto) 1-5 U Epithel Cells (Auto) 0-5 Urine Bacteria (Auto) 4+ H 01/18/19 01/18/19 01/18/19 06:38 06:38 07:22 WBC RBC Hgb Hct MCV MCH MCHC RDW Std Deviation RDW Coeff of Leigha Plt Count MPV Immature Gran % (Auto) Neut % (Auto) Lymph % (Auto) Posey % (Auto) Eos % (Auto) Baso % (Auto) Immature Gran # (Auto) Neut # (Auto) Lymph # (Auto) Posey # (Auto) Eos # (Auto) Baso # (Auto) PT 11.7 INR 1.2 H Sodium 137 Potassium 3.7 Chloride 107 Carbon Dioxide 24 Anion Gap 6.0 BUN 12 Creatinine 1.06 Est Cr Clr Drug Dosing 70.3 Est GFR ( Amer) 62.9 Est GFR (Non-Af Amer) 54.3 BUN/Creatinine Ratio 11.2 Glucose 105 H POC Glucose 117 H Calcium 7.6 L Troponin I 0.338 H* Urine Color Urine Appearance Urine pH Ur Specific [place] Urine Protein Urine Glucose (UA) Urine Ketones Urine Blood Urine Nitrite Urine Bilirubin Urine Urobilinogen Ur Leukocyte Esterase Urine WBC (Auto) Urine RBC (Auto) U Hyaline Cast (Auto) U Epithel Cells (Auto) Urine Bacteria (Auto) 01/18/19 01/18/19 01/18/19 11:04 15:56 20:16 WBC RBC Hgb Hct MCV MCH MCHC RDW Std Deviation RDW Coeff of Leigha Plt Count MPV Immature Gran % (Auto) Neut % (Auto) Lymph % (Auto) Posey % (Auto) Eos % (Auto) Baso % (Auto) Immature Gran # (Auto) Neut # (Auto) Lymph # (Auto) Posey # (Auto) Eos # (Auto) Baso # (Auto) PT INR Sodium Potassium Chloride Carbon Dioxide Anion Gap BUN Creatinine Est Cr Clr Drug Dosing Est GFR ( Amer) Est GFR (Non-Af Amer) BUN/Creatinine Ratio Glucose POC Glucose 171 H 170 H 173 H Calcium Troponin I Urine Color Urine Appearance Urine pH Ur Specific [place] Urine Protein Urine Glucose (UA) Urine Ketones Urine Blood Urine Nitrite Urine Bilirubin Urine Urobilinogen Ur Leukocyte Esterase Urine WBC (Auto) Urine RBC (Auto) U Hyaline Cast (Auto) U Epithel Cells (Auto) Urine Bacteria (Auto)
[2019-01-19] MEDS: [UNRECOGNIZED DRUG - OTHER] SCH ×4 (00:30→23:10)
[2019-01-19] MEDS: HYDROmorphone INJ 1 MG/ML SYRINGE IV PRN ×5 (01:47→19:27)
[2019-01-19] MEDS: IMIPENEM/CILASTATIN SODIUM 500 MG in DEXTROSE 5% 100 ML IV SCH ×2 (04:32→10:54)
[2019-01-19] MEDS: SODIUM CHLORIDE 0.9% 1000ML 1,000 ML IV SCH ×2 (04:32→19:30)
[2019-01-19] MEDS: LEVOTHYROXINE SODIUM 112 MCG TABLET PO SCH (05:49)
[2019-01-19] MEDS: OXYCODONE HCL IR 5 MG TAB (IMMEDIATE RELEASE) PO PRN ×2 (07:08→15:48)
[2019-01-19] MEDS: SUCRALFATE 1 GM/10 ML UDC PO SCH ×4 (07:08→20:33)
[2019-01-19 07:30] LABS: BUN Creatinine Ratio 10.9 (10-20); Calcium 7.9 mg/dl (8.5-10.1); Creatinine Clr Calc Pharmacy 71.7 ml/min; Est GFR (African American) 63.6; Est GFR (Non-African American) 54.9; Potassium 3.9 mmol/L (3.5-5.1)
[2019-01-19] MEDS: ARIPiprazole 5 MG TAB PO SCH (07:48)
[2019-01-19] MEDS: PANTOprazole 40 MG TAB PO SCH ×2 (07:48→20:35)
[2019-01-19] MEDS: LIOTHYRONINE SODIUM 5 MCG TAB PO SCH (07:49)
[2019-01-19] MEDS: VANCOMYCIN HCL 1,500 MG in SODIUM CHLORIDE 0.9% 500 ML IV SCH ×2 (07:49→21:56)
[2019-01-19] MEDS: DULOXETINE HCL 60 MG CAP PO SCH ×2 (07:49→20:33)
[2019-01-19] MEDS: BuPROPion XL 300 MG TABCR PO SCH (07:49)
[2019-01-19] MEDS: ATORVASTATIN 10 MG TAB PO SCH (07:49)
[2019-01-19] MEDS: INSULIN ASPART 100 UNITS/ML 3 ML PEN SQ SCH ×4 (07:49→21:57)
[2019-01-19] MEDS: ACETAMINOPHEN 325 MG TAB PO PRN (10:52)
[2019-01-19] MEDS ORDERED: cefTRIAXone SODIUM 1,000 MG in DEXTROSE 5% 50 ML IV SCH (18:00)
[2019-01-19 18:12] LABS: Troponin I 0.045 ng/ml (0-0.045)
[2019-01-19] MEDS: clonazePAM 1 MG TAB PO SCH (20:33)
[2019-01-19] MEDS: GABAPENTIN 100 MG CAP PO SCH (20:33)
[2019-01-19] MEDS: TRAZODONE HCL 50 MG TAB PO SCH (20:34)
[2019-01-19] MEDS: CEROVITE ADV FORMULA TAB PO SCH (20:35)
[2019-01-19] MEDS: CHOLECALCIFEROL 1,000 UNITS TAB PO SCH (20:35)
--- NOTE | 2019-01-19 20:42 | Hospitalist Progress Note ---
Date of Service January 19, 2019 Assessment & Plan (1) Pyelonephritis: left, in setting of obstructing kidney stone. 2nd to GNR. cont IV abx. will de-escalate from imipenem to rocephin. stop vancomycin. blood cx's negative. (2) Calculus, ureteral: s/p urgent cystoscopy first day of admission with right-sided ureteral stent placement. definitive stone management post-d/c. (3) Pleuritic chest pain: resolved. etiology uncertain. CTA chest neg for PE. no pericardial effusion. normal EKGs. troponin peaked 0.3 -- repeat today normal. echo w/o wall motion abnormality. symptoms never sounded cardiac however. follow. (4) Bilateral leg pain: neuropathy from chemotherapy? myositis? other ? start gabapentin 100mg TID check CPK b12, tsh etc in the last 6 months were normal does have mild l-spine pain but it doesn't sound like radicular pain from back (5) Elevated troponin: likely myocardial demand ischemia in setting of obstructing kidney stone & UTI/pyelonephritis (6) Uterine cancer: undergoing chemotherapy - last round 2 weeks ago (7) Diabetes mellitus: adequate control cont basal-bolus regimen (8) Hypothyroidism: cont synthroid (9) DVT prophylaxis: add lovenox 40 mg daily PT OT updated at bedside today Subjective pt overall feels better still weak appetite poor main complaints are that of left flank pain and b/l leg pain "from the hips down to my feet" latter has been present for several weeks attributed to taxol therapy she has hard time describing the symptoms but "it is deep in the legs" she also reports numb hands and feet Constitutional: + fatigue and + anorexia; no fever and no chills Respiratory: no cough Cardiovascular: no chest pain Gastrointestinal: no abdominal pain, no nausea and no vomiting Physical Exam Vital Signs (Past 24 Hours): Last Vital Signs Temp 36.7 C 01/19/19 19:37 Pulse 87 01/19/19 19:37 Resp 16 01/19/19 19:37 BP 114/73 01/19/19 19:37 Pulse Ox 95 01/19/19 19:37 Constitutional: well developed, well nourished and + obese; no acute distress and not ill appearing ENMT: external ear and nose normal, oropharynx normal Respiratory: normal respiratory effort, lungs clear to auscultation Cardiovascular: RRR, no murmur, no edema Heart Sounds: normal S1 and normal S2 Vessels: posterior tibial pulses present and dorsalis pedis pulses present Gastrointestinal (Abdomen): normal bowel sounds, soft, nontender, no hepatosplenomegaly left flank discomfort Psychiatric: A+Ox3, euthymic affect Results & Data Laboratory Results urine cx w/ GNR blood cx's negative creatinine normal (1) Uterine cancer Malignant neoplasm of uterus location: unspecified site of uterus Qualified Code(s): C55 - Malignant neoplasm of uterus, part unspecified (2) Diabetes mellitus Diabetes mellitus type: type 2 Diabetes mellitus intermediate accountant insulin use: with skilled nursing use Diabetes mellitus complication status: without complication Qualified Code(s): E11.9 - Type 2 diabetes mellitus without complications; Z79.4 - longterm (current) use of insulin
[2019-01-19] MEDS: INSULIN GLARGINE SOLOSTAR 100 UNITS/ML 3 ML PEN SC SCH (21:57)
[2019-01-20] MEDS: HYDROmorphone INJ 1 MG/ML SYRINGE IV PRN ×4 (03:15→14:25)
[2019-01-20] MEDS: LEVOTHYROXINE SODIUM 112 MCG TABLET PO SCH (05:44)
[2019-01-20 06:51] LABS: Calcium 7.4 mg/dl (8.5-10.1); Est GFR (African American) 88.4; Est GFR (Non-African American) 76.3; Potassium 3.5 mmol/L (3.5-5.1)
[2019-01-20] MEDS: SODIUM CHLORIDE 0.9% 1000ML 1,000 ML IV SCH (07:41)
[2019-01-20 07:51] LABS: Hematocrit (blood only) 27.8 % (37-47); Mean Corpuscular Volume 84.2 fL (80-100); Mean Platelet Volume 9.4 fL (7.4-10.4); Platelet Count 170 K/uL (130-400); RDW Coefficient of Variation 16.8 % (11.5-14.5); RDW Standard Deviation 50.9 fL (36.4-46.3); White Blood Count 7.73 K/uL (4.8-10.8)
[2019-01-20] MEDS: SUCRALFATE 1 GM/10 ML UDC PO SCH ×3 (07:58→17:03)
[2019-01-20] MEDS: BuPROPion XL 300 MG TABCR PO SCH (07:59)
[2019-01-20] MEDS: [UNRECOGNIZED DRUG - OTHER] SCH ×2 (07:59→17:02)
[2019-01-20] MEDS: PANTOprazole 40 MG TAB PO SCH (08:00)
[2019-01-20] MEDS: ARIPiprazole 5 MG TAB PO SCH (08:00)
[2019-01-20] MEDS: ATORVASTATIN 10 MG TAB PO SCH (08:00)
[2019-01-20] MEDS: DULOXETINE HCL 60 MG CAP PO SCH (08:01)
[2019-01-20] MEDS: LIOTHYRONINE SODIUM 5 MCG TAB PO SCH (08:01)
[2019-01-20] MEDS: GABAPENTIN 100 MG CAP PO SCH ×2 (08:02→14:25)
[2019-01-20 08:05] LABS: Mean Corpuscular Hgb Conc 32.4 g/dL (32-36)
[2019-01-20] MEDS: INSULIN ASPART 100 UNITS/ML 3 ML PEN SQ SCH ×3 (08:06→17:05)
[2019-01-20] MEDS ORDERED: ENOXAPARIN INJ 40 MG/0.4 ML SYR SQ SCH (09:00)
[2019-01-20] MEDS ORDERED: VANCOMYCIN TROUGH ONE (11:30)
[2019-01-20] MEDS ORDERED: OXYCODONE HCL IR 5 MG TAB (IMMEDIATE RELEASE) PO PRN (16:33)
--- NOTE | 2019-01-20 16:50 | Discharge Summary ---
Date of Service January 20, 2019 Admission HPI Per Admitting Provider Arlin is a 68-year-old female who presents to the ER with complaints of feeling unwell, fevers, rigors. Her past medical history is significant for chemotherapy for uterine cancer ongoing. She has a past medical history also significant for recurrent nephrolithiasis requiring stents in the past. Her CT scan of the abdomen and pelvis was positive for 5 mm obstructing ureteral stone on the right, pyelonephritis of the left kidney. CTA of the chest was negative for PE. Chest x-ray unremarkable. White blood cell count was elevated 18. Anemia noted H&H 11.2/34. Chemistry profile was significant for slightly e levated glucose 124, elevated troponin 0.2, CRP 5, alkaline phosphatase 149. UA was positive for leukocyte esterase and bacteria. Flu a and B negative. 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 Social: Does not drink or smoke Principal Diagnosis Right ureterolithiasis, Left acute pyelonephritis Discharge Exam Constitutional WD/WN, vitals as above + morbidly obese Eyes PERRL, conjunctivae normal, anicteric sclerae ENMT external ear and nose normal, oropharynx normal Neck trachea midline, no thyromegaly Respiratory normal respiratory effort, lungs clear to auscultation Cardiovascular RRR, no murmur, no edema Gastrointestinal (Abdomen) Inspection/Auscultation: abdomen normal to inspection and normal bowel sounds Percussion/Palpation: + abdomen tender (mild in left flank); no guarding Musculoskeletal Extremities: extremities normal to inspection; no cyanosis and no clubbing Skin no rashes, warm and dry Neurologic moves all extremities and awake; no focal motor deficits Psychiatric A+Ox3, euthymic affect Discharge Data Allergies Allergy/AdvReac Type Severity Reaction Status Date / Time ciprofloxacin AdvReac Intermediate ALTERED Verified 01/17/19 21:26 MENTAL STATE,AGITATED Cipro AdvReac Unknown ALTERED Verified 01/12/18 08:29 MENTAL STATE,AGITATED Consultations 01/17/19 22:36 ED Decision to Admit Stat 01/18/19 02:17 Consult Case Management - Discharge Planning Routine Procedures Performed Operation Date: 01/18/19 01:10 Actual Procedures p Cystoscopy, Right Retrograde Pyelogram and Right Ureteral Stent Insertion - Lloyd Rosado MD Ordered Studies 01/17/19 20:53 CT abd pelvis IV con only Stat CT angio chest PE protocol Stat 01/18/19 FL retrograde includes kub Routine CXR ECHO-grade 2 diastolic dysfunction Hospital Course (1) Pyelonephritis: left, in setting of obstructing kidney stone. Secondary to E. coli resistant to penicillin and Proteus First received imipene, then changed to Rocephin. SHe also received one day's worth of vancomycin. blood cx's negative at time of discharge over 48 hour megan Will finish out course of treatment with 10 more days of cefdinir 300mg po bid (as she is allergic to Cipro) (2) Calculus, ureteral: s/p urgent cystoscopy first day of admission with right-sided ureteral stent placement. definitive stone management post-d/c. Follow up with Urology -continue FLomax 0.4mg po qhs after discharge for stent pain (3) Pleuritic chest pain: resolved. etiology uncertain. CTA chest neg for PE. no pericardial effusion. normal EKGs. troponin peaked 0.3 -- repeat then normal. echo w/o wall motion abnormality. symptoms never sounded cardiac however. (4) Bilateral leg pain: Going on for weeks since starting chemotherapy. Could be neuropathy from chemotherapy; also with tingling in toes and fingertips bilaterally CPK negative started gabapentin 100mg TID and treated with oxycodone, DIaludid prn b12, tsh etc in the last 6 months were normal does have mild l-spine pain but it doesn't sound like radicular pain from back -continue to follow with Oncology (5) Elevated troponin: likely myocardial demand ischemia in setting of obstructing kidney stone & UTI/pyelonephritis (6) Uterine cancer: undergoing chemotherapy - last round 2 weeks ago -f/u with Oncology after discharge (7) Diabetes mellitus: Required half her usual insulin dosing during hospitalization -recommended reduced dose at home to 40 units qhs and slowly titrate back up as needed (8) Hypothyroidism: cont synthroid (9) Chronic diastolic CHF (congestive heart failure): Grade 2 diastolic dysfunction on ECHO here -not volume overloaded -follow (10) Abnormal CT of the abdomen: With bulbous-appearing appendix tip measuring up to [address] No evidence of acute appendicitis as per Radiology report and on clinical exam -Radiology recommends repeat non-emergent CT abd/pel with po contrast--> can be done as outpt with PCP (11) DVT prophylaxis: Received lovenox 40 mg daily Dispo-stable for dc to home today Total Time Total Time Spent Total Time Spent (In Minutes): >30 min Total Time Includes: Examination of the Patient, Discharge Planning and Medication Reconciliation Discharge Plan Discharge Items Patient Disposition: Home - Self-Care Reason For Visit: STONE, PYELO Discharge Diagnosis: Ureterolithiasis,acute pyelonephritis Condition: Fair Discharge Goals: Decrease discomfort, Diagnostic testing, Improve disease control and Therapeutic intervention Activity: As commented below Lifting: Gradually increase as tolerated Bathing: No limitations Exercise/Sports: As tolerated Non-emergency contact: Primary Care Provider and Urologist Call non-emergency contact if: you have any medication questions, your symptoms worsen, your pain is not controlled, your pain is worsening, your pain is u nusual for you, your pain is concerning for you, you have a fever and your temperature is above 101 Follow-up/Referrals: Moustapha Dey MD [Primary Care Provider] - 01/31/19 9:30 am (follow up appointment at your primary care physician office with the physician residential living assistant Lucie) Manuel Perkins II, DO [Physician] - 01/25/19 10:30 am (follow up appointment with urologist) Diet: Carb Consistent or DM2 Addtl Provider Instructions: You were admitted with a kidney stone on the right and a kidney infection on the left. You had a stent placed by Urology and should follow up with Dr. Perkins as planned to discuss removal of your stone. You can take your home oxycodone as needed for pain. Please finish out a course of antibiotics for your kidney infection as prescribed. You should also take Flomax once daily at bedtime to help with the pain of the stent; this can cause lightheadedness with standing as we discussed. Your Lantus dose was significantly reduced while you were here and your glucose levels remained low. Please lower your dose at home to 40 units and then if your blood glucose levels start to increase greater than 150 for the morning fasting reading, please increase your Lantus dose by 2 units every 3 days (until AM glucose is less than 150). Your appendix looked slightly abnormal on the CT scan, but did not appear to be infected/inflamed (you do not have appendicitis). You should have a repeat CT of the abdomen/pelvis in 2 weeks with your PCP to follow up on this to ensure it returns to normal. Please follow up with your PCP, Urologist, and Oncology as scheduled. Prescriptions: New tamsulosin 0.4 mg Capsule 0.4 mg PO HS Qty: 10 RF: 0 gabapentin 100 mg Capsule 100 mg PO TID Qty: 90 RF: 0 cefdinir 300 mg capsule 300 mg PO BID 10 Days Qty: 20 RF: 0 Continued trazodone 50 mg tablet 100 mg PO HS RF: 0 atorvastatin 10 mg tablet 10 mg PO QAM RF: 0 sucralfate 1 gram tablet 1 g PO UD RF: 0 clonazepam 1 mg tablet 1 mg PO HS RF: 0 omeprazole 40 mg capsule,delayed release(DR/EC) 40 mg PO BID RF: 0 liothyronine 5 mcg tablet 5 mcg PO QAM RF: 0 buspirone 10 mg tablet 20 mg PO TID RF: 0 levothyroxine 112 mcg tablet 112 mcg PO QAM RF: 0 Novolog Flexpen U-100 Insulin 100 unit/mL Insulin Pen 40 units subcut QAM RF: 0 aripiprazole 5 mg tablet 2.5 mg PO QAM RF: 0 bupropion HCl 300 mg tablet extended release 24 hr 300 mg PO QAM RF: 0 duloxetine 60 mg capsule,delayed release(DR/EC) 60 mg PO BID RF: 0 Centrum Silver 0.4-300-250 mg-mcg-mcg Tablet 1 tab PO HS RF: 0 cholecalciferol (vitamin D3) [Vitamin D3] 1,000 unit Tablet 3,000 unit PO QPM RF: 0 liraglutide 0.6 mg/0.1 mL (18 mg/3 mL) pen injector 1.8 mg subcut QAM RF: 0 linaclotide 290 mcg capsule 290 mg PO QAM RF: 0 levomefolate-algal oil [Deplin (algal oil)] 15-90.314 mg Capsule 15 mg PO QAM RF: 0 dexamethasone 4 mg tablet 20 mg PO DIRECTED PRN (Reason: Other) RF: 0 ibuprofen 200 mg Tablet 200 mg PO QID PRN (Reason: Pain) RF: 0 ondansetron HCl [Zofran] 4 mg Tablet 4 mg PO TID PRN (Reason: Nausea) RF: 0 Ocuvite with Lutein 1,000 unit-200 mg-60 unit-2 mg Tablet 1 tab PO BID RF: 0 quetiapine [Seroquel] 25 mg Tablet 25 mg PO TID PRN (Reason: Anxiety) RF: 0 Changed Lantus U-100 Insulin 100 unit/mL Solution 40 unit SUBCUT HS Qty: 0 RF: 0 oxycodone 5 mg Capsule 10 mg PO Q4H PRN (Reason: Pain) Qty: 0 RF: 0 Stand-Alone Forms: [facility] Discharge Orders: Discharge Order (Routine); Ordered 01/20/19 Ordered By: Shiar Guillen Admission Data Admit Date/Time: 01/18/19 00:00 Attending Provider: Shira Guillen Admit Provider: Carlyn Knowles Primary Care Provider: Moustapha Dey Other Providers: Paz Hannah Service: Telemetry Other Pending Studies at Discharge: Yes Studies:: Final Blood Culture result
[2019-01-20] MEDS ORDERED: HEPARIN 100 UNIT/ML 5ML FLUSH ONE (18:15)
[2019-01-20] MEDS ORDERED: TAMSULOSIN HCL 0.4 MG CAP PO SCH (21:00)
== END 2019-01-20 19:13 | disposition home or self-care (01) | DRG 660 ==
LOC: ED 18:37 → 2S 01-18 → SUATTDRO 01-18 → 2S 01-18 00:37

== ENCOUNTER 2023-02-05 08:00 | Observation (INO) ==
--- NOTE | 2023-01-08 10:15 | PAT Medication Instructions ---
Medication Instructions Date of Service January 08, 2023 Home Medications Medication Instructions Recorded OneTouch Delica Lancets 33 gauge #100 ea 10/27/19 (lancets) prochlorperazine maleate 10 mg 10 mg PO Q8H PRN nausea and 09/25/21 tablet vomiting #30 tabs quetiapine 25 mg tablet 25 mg PO BID #60 tabs 09/25/21 FreeStyle Kathia 14 Day Sensor #6 ea 11/24/21 (flash glucose sensor) liothyronine 5 mcg tablet 5 mcg PO QAM #90 tabs 01/01/22 BD Ultra-Fine Mary Pen Needle 32 #500 ea 02/23/22 gauge x 5/32" (pen needle, diabetic) atorvastatin 10 mg tablet See Rx Instructions .Route 04/28/22 .COMPLEX #90 tabs blood-glucose meter (OneTouch #3 ea 04/29/22 Verio Reflect Meter) insulin aspart U-100 100 unit/mL 100 unit subcut DAILY 90 days #90 05/02/22 (3 mL) subcutaneous pen (Novolog mL FlexPen U-100 Insulin aspart) OneTouch Verio test strips (blood #400 ea 07/02/22 sugar diagnostic) diclofenac sodium 1 % topical gel 2 g topical QID #200 grams 07/31/22 (Voltaren Arthritis Pain) omeprazole 40 mg capsule,delayed See Rx Instructions .Route 08/24/22 release .COMPLEX #60 caps glucagon 3 mg/actuation nasal 3 mg intranasal ONCE #2 ea 09/05/22 spray (Baqsimi) meclizine 25 mg tablet 25 mg PO BID PRN dizziness #30 tabs 09/11/22 clotrimazole 10 mg michelle 10 mg mucous membrane 5XD #150 tabs 09/25/22 insulin glargine 100 unit/mL (3 40 unit (0.4 mL) subcut QPM #15 mL 09/28/22 mL) subcutaneous pen (Lantus Solostar U-100 Insulin) nystatin 100,000 unit/mL oral 5 ml PO QID #200 mL 10/28/22 suspension gabapentin 600 mg tablet 600 mg PO TID #90 tabs 11/23/22 semaglutide 1 mg/dose (4 mg/3 mL) 1 mg (0.75 mL) subcut Q7D #3 mL 11/24/22 subcutaneous pen injector (Ozempic) linaclotide 290 mcg capsule See Rx Instructions .Route 01/01/23 (Linzess) .COMPLEX #30 caps meloxicam 15 mg tablet 15 mg PO QAM #30 tabs 01/04/23 Medication List: bupropion HCl 300 mg 24 hr tablet, extended release 300 mg PO QAM duloxetine 60 mg capsule,delayed release 60 mg PO BID levomefolate 15 mg-algal oil 90.314 mg capsule (Deplin (algal oil)) 15 mg PO QAM orznsywa-qtq-ztpyv acid 0.4 mg-lycopene 300 mcg-lutein 250 mcg tablet (Centrum Silver) 1 tab PO HS trazodone 50 mg tablet 75 mg PO HS buspirone 10 mg tablet 20 mg PO TID vit A 300 mcg-C 200 mg-E 27 mg-lutein 2 mg and minerals tablet (Ocuvite with Lutein) 1 tab PO BID clonazepam 1 mg tablet 0.5 mg PO PM prochlorperazine maleate 10 mg tablet 10 mg PO Q8H PRN nausea and vomiting quetiapine 25 mg tablet 25 mg PO BID oxycodone 5 mg capsule 20 mg PO BID PRN Pain liothyronine 5 mcg tablet 5 mcg PO QAM medical marijuana 1 dose inhalation HS propranolol 10 mg tablet 10 mg PO QAM atorvastatin 10 mg tablet 1 tab by mouth AM insulin aspart U-100 100 unit/mL (3 mL) subcutaneous pen (Novolog FlexPen U-100 Insulin aspart) 100 unit subcut DAILY diclofenac sodium 1 % topical gel (Voltaren Arthritis Pain) 2 g topical QID anastrozole 1 mg tablet 1 mg PO QAM aripiprazole 2 mg tablet 2 mg PO QAM omeprazole 40 mg capsule,delayed release 1 capsule by mouth twice daily levothyroxine 112 mcg tablet 112 mcg PO QAM glucagon 3 mg/actuation nasal spray (Baqsimi) 3 mg intranasal ONCE meclizine 25 mg tablet 25 mg PO BID PRN dizziness clotrimazole 10 mg michelle 10 mg mucous membrane 5XD insulin glargine 100 unit/mL (3 mL) subcutaneous pen (Lantus Solostar U-100 Insulin) 40 unit (0.4 mL) subcut QPM nystatin 100,000 unit/mL oral suspension 5 ml PO QID gabapentin 600 mg tablet 600 mg PO TID semaglutide 1 mg/dose (4 mg/3 mL) subcutaneous pen injector (Ozempic) 1 mg (0.75 mL) subcut Q7D linaclotide 290 mcg capsule (Linzess) 1 capsule AM meloxicam 15 mg tablet 15 mg PO QAM Continue as directed glucagon 3 mg/actuation nasal spray (Baqsimi) 3 mg intranasal ONCE (notify OR team if recently used) semaglutide 1 mg/dose (4 mg/3 mL) subcutaneous pen injector (Ozempic) 1 mg (0.75 mL) subcut Q7D ASK your surgeon for instructions meloxicam 15 mg tablet 15 mg PO QAM ASK your prescriber and surgeon aripiprazole 2 mg tablet 2 mg PO QAM quetiapine 25 mg tablet 25 mg PO BID STOP taking 2 weeks before surgery vit A 300 mcg-C 200 mg-E 27 mg-lutein 2 mg and minerals tablet (Ocuvite with Lutein) 1 tab PO BID levomefolate 15 mg-algal oil 90.314 mg capsule (Deplin (algal oil)) 15 mg PO QAM DO NOT take the morning of surgery diclofenac sodium 1 % topical gel (Voltaren Arthritis Pain) 2 g topical QID (do not use AM of surgery insulin aspart U-100 100 unit/mL (3 mL) subcutaneous pen (Novolog FlexPen U-100 Insulin aspart) 100 unit subcut DAILY linaclotide 290 mcg capsule (Linzess) Take morning of surgery With a small sip of water, OTHERWISE NOTHING TO EAT OR DRINK AFTER MIDNIGHT: gabapentin 600 mg tablet 600 mg PO TID liothyronine 5 mcg tablet 5 mcg PO QAM levothyroxine 112 mcg tablet 112 mcg PO QAM propranolol 10 mg tablet 10 mg PO QAM omeprazole 40 mg capsule,delayed release 1 capsule by mouth twice daily bupropion HCl 300 mg 24 hr tablet, extended release 300 mg PO QAM duloxetine 60 mg capsule,delayed release 60 mg PO BID buspirone 10 mg tablet 20 mg PO TID atorvastatin 10 mg tablet 1 tab by mouth AM anastrozole 1 mg tablet 1 mg PO QAM meclizine 25 mg tablet 25 mg PO BID PRN dizziness (if needed) prochlorperazine maleate 10 mg tablet 10 mg PO Q8H PRN nausea and vomiting (if needed) oxycodone 5 mg capsule 20 mg PO BID PRN Pain (if needed) Take evening before surgery medical marijuana 1 dose inhalation HS clonazepam 1 mg tablet 0.5 mg PO PM trazodone 50 mg tablet 75 mg PO HS clotrimazole 10 mg michelle 10 mg mucous membrane 5XD nystatin 100,000 unit/mL oral suspension 5 ml PO QID gabapentin 600 mg tablet 600 mg PO TID omeprazole 40 mg capsule,delayed release 1 capsule by mouth twice daily duloxetine 60 mg capsule,delayed release 60 mg PO BID swfjputa-vaa-uwhfd acid 0.4 mg-lycopene 300 mcg-lutein 250 mcg tablet (Centrum Silver) 1 tab PO HS buspirone 10 mg tablet 20 mg PO TID insulin glargine 100 unit/mL (3 mL) subcutaneous pen (Lantus Solostar U-100 Insulin) 40 unit (0.4 mL) subcut QPM meclizine 25 mg tablet 25 mg PO BID PRN dizziness (if needed) prochlorperazine maleate 10 mg tablet 10 mg PO Q8H PRN nausea and vomiting (if needed) oxycodone 5 mg capsule 20 mg PO BID PRN Pain (if needed) Other Notes If you have any questions please call us at [phone] or [phone] or [phone] or [phone]
--- NOTE | 2023-01-14 10:13 | Anesthesiology Consultation ---
Date of Service January 14, 2023 Assessment & Plan (1) Encounter for pre-operative examination: - COVID screening: Per assessment on 01/14: No known COVID-19 positive contacts or current COVID-19 related symptoms. Travel screen negative. Patient vaccinated. At surgeon discretion if preop Covid testing being done. - Check BSG AM DOS - Outpatient joint assessment: Pt currently scheduled for inpatient pathway. If surgeon requests review for outpatient joint pathway, patient is not recommended candidate for outpatient joint program from anesthesia standpoint (patient states she would not feel comfortable being considered for outpatient joint pathway). - Awaiting most recent cardiology office visit ([facility] cardio, appt 01/05- note still in draft). - CT Chest/Abdomen/Pelvis scheduled 01/25 ([facility], oncology ordered)- awaiting report. Chart Review Chart Review: Patient seen in Pre Admission Testing Teaching & Discussion Pre-Anesthesia Teaching/Discussion Notes: Instructed NPO after midnight before surgery,except medications with 15 cc of water. Medication instructions provided according to the PAT guidelines. History Surgery Operation Date: 02/05/23 12:50 Proposed Procedures p Left Total Knee Arthroplasty - Keny French, Height/Weight Height: 5 ft 8 in Weight: 112.2 kg Allergies Allergy/AdvReac Type Severity Reaction Status Date / Time ciprofloxacin AdvReac Intermediate ALTERED Verified 01/14/23 09:13 MENTAL STATE, AGITATED Medications Home Medications Medication Instructions Recorded Confirmed Last Taken bupropion HCl 300 mg 24 hr tablet, 300 mg PO QAM 09/14/18 01/07/23 09/25/20 extended release duloxetine 60 mg capsule,delayed 60 mg PO BID 09/14/18 01/07/23 09/06/22 release levomefolate 15 mg-algal oil 15 mg PO QAM 09/14/18 01/07/23 09/06/22 90.314 mg capsule (Deplin (algal oil)) tvfstlxc-fdy-iggdl acid 0.4 1 tab PO HS 09/14/18 01/07/23 09/06/22 mg-lycopene 300 mcg-lutein 250 mcg tablet (Centrum Silver) trazodone 50 mg tablet 75 mg PO HS 09/14/18 01/07/23 09/06/22 buspirone 10 mg tablet 20 mg PO TID 09/15/19 01/07/23 09/06/22 OneTouch Delica Lancets 33 gauge #100 ea 10/27/19 12/30/22 09/25/20 (lancets) vit A 300 mcg-C 200 mg-E 27 1 tab PO BID 04/10/21 01/07/23 09/06/22 mg-lutein 2 mg and minerals tablet (Ocuvite with Lutein) clonazepam 1 mg tablet 0.5 mg PO PM 09/25/21 01/07/23 09/06/22 prochlorperazine maleate 10 mg 10 mg PO Q8H PRN nausea and 09/25/21 01/07/23 Unknown tablet vomiting #30 tabs quetiapine 25 mg tablet 25 mg PO BID #60 tabs 09/25/21 01/07/23 09/06/22 medical marijuana 1 dose inhalation HS 10/30/21 01/07/23 09/05/22 oxycodone 5 mg capsule 20 mg PO BID PRN Pain 10/30/21 01/07/23 09/06/22 FreeStyle Kathia 14 Day Sensor #6 ea 11/24/21 12/30/22 Unknown (flash glucose sensor) liothyronine 5 mcg tablet 5 mcg PO QAM #90 tabs 01/01/22 01/07/23 09/07/22 propranolol 10 mg tablet 10 mg PO QAM 01/01/22 01/07/23 09/06/22 BD Ultra-Fine Mary Pen Needle 32 #500 ea 02/23/22 12/30/22 Unknown gauge x 5/32" (pen needle, diabetic) atorvastatin 10 mg tablet See Rx Instructions .Route 04/28/22 01/07/23 Unknown .COMPLEX #90 tabs blood-glucose meter (OneTouch #3 ea 04/29/22 12/30/22 Unknown Verio Reflect Meter) insulin aspart U-100 100 unit/mL 100 unit subcut DAILY 90 days #90 05/02/22 01/07/23 09/06/22 (3 mL) subcutaneous pen (Novolog mL FlexPen U-100 Insulin aspart) OneTouch Verio test strips (blood #400 ea 07/02/22 12/30/22 Unknown sugar diagnostic) diclofenac sodium 1 % topical gel 2 g topical QID #200 grams 07/31/22 01/07/23 09/06/22 (Voltaren Arthritis Pain) anastrozole 1 mg tablet 1 mg PO QAM 08/04/22 01/07/23 Unknown aripiprazole 2 mg tablet 2 mg PO QAM 08/04/22 01/07/23 Unknown omeprazole 40 mg capsule,delayed See Rx Instructions .Route 08/24/22 01/07/23 09/06/22 release .COMPLEX #60 caps levothyroxine 112 mcg tablet 112 mcg PO QAM 09/01/22 01/07/23 09/07/22 glucagon 3 mg/actuation nasal 3 mg intranasal ONCE #2 ea 09/05/22 01/07/23 Unknown spray (Baqsimi) meclizine 25 mg tablet 25 mg PO BID PRN dizziness #30 tabs 09/11/22 01/07/23 Unknown clotrimazole 10 mg michelle 10 mg mucous membrane 5XD #150 tabs 09/25/22 01/07/23 Unknown insulin glargine 100 unit/mL (3 40 unit (0.4 mL) subcut QPM #15 mL 09/28/22 01/07/23 Unknown mL) subcutaneous pen (Lantus Solostar U-100 Insulin) nystatin 100,000 unit/mL oral 5 ml PO QID #200 mL 10/28/22 01/07/23 Unknown suspension gabapentin 600 mg tablet 600 mg PO TID #90 tabs 11/23/22 01/07/23 Unknown semaglutide 1 mg/dose (4 mg/3 mL) 1 mg (0.75 mL) subcut Q7D #3 mL 11/24/22 01/07/23 Unknown subcutaneous pen injector (Ozempic) linaclotide 290 mcg capsule See Rx Instructions .Route 01/01/23 01/07/23 Unknown (Linzess) .COMPLEX #30 caps meloxicam 15 mg tablet 15 mg PO QAM #30 tabs 01/04/23 01/07/23 Unknown Past Medical History Medical History Anemia Barretts esophagus Depression with anxiety Diabetes type 2, controlled Fatty liver Gastroparesis History of anal cancer Dx approximately 12 years ago, hx radiation History of breast cancer Dx 2019. Left breast. s/p B/L mastectomy Denies limb restriction History of kidney stones History of uterine cancer Dx 3 years ago. S/P sx + chemo Hyperlipidemia Hypothyroidism Insomnia Iron deficiency hx iron infusions Lumbosacral radiculopathy Obesity (BMI 30-39.9) Peripheral neuropathy Port-A-Cath in place RCW- power port Radiation colitis Renal mass, left S/P Left partial nephrectomy (2014) Sleep apnea CPAP (non-compliant) Exercise / Class Metabolic Activity III < 4 Walking/Shop/Light housework Past Family History Family History Brother Family history of diabetes mellitus Kidney stones Sinusitis Multiple allergies No family history of bleeding disorder Allergies Mother Coronary heart disease Dementia Cardiac disorder Hypertension Uterus cancer Hearing loss Father Asthma Hypertension Liver cancer Pancreatic cancer Hearing loss No family history of bleeding disorder Other Cancer No family history of adverse response to anesthesia Denies family history of Ovarian cancer Prostate cancer Breast cancer Colorectal cancer Past Surgical History Surgical History H/O bilateral salpingo-oophorectomy H/O partial nephrectomy LEFT SIDE D/T TUMOR History of arthroscopy RIGHT KNEE History of bilateral mastectomy denies limb restriction History of colonoscopy History of conization of cervix History of cystoscopy STONE EXTRACTION History of dilatation and curettage History of esophagogastroduodenoscopy (EGD) History of flexible sigmoidoscopy History of hysterectomy History of lithotripsy History of surgery A-PORT INSERTION 11/2018 [facility] History of tooth extraction Past Anesthesia History No Hx of Anesthesia Complications and No Family Hx of Anesthesia Complications History of PONV No Hx of PONV and Hx of Motion Sickness (Mild) Social History Smoking Status: Former smoker tobacco type: cigarettes Smoking cigarettes per day: Quit 50 yrs ago Do You Dip or Chew Tobacco: No Hx Alcohol Use: No Alcohol type: wine alcohol intake frequency: holidays/special occasions only Hx Substance Use: Yes (smokes daily @ HS - advised) substance use type: marijuana Substance Use Type Other:: medical marijuana Last Used Substance: Days (ago) Review of Systems Patient denies chest pain, shortness of breath, fever, chills, cough, wheezing, palpitations. Physical Exam Vital Signs VITALS BP 111/66 P 77 TEMP 98.6 SP02 97%RA RESP 18 PHYSICAL Full cervical extension range of motion. Full TMJ range of motion. TMD 3.5 finger breaths Mallampati Score 1 Dentition: intact, + caps (upper left side) Lungs: clear throughout to auscultation Cardiac: regular rate and rhythm, no murmurs noted Spine: normal Carotid arteries: negative bruit Extremities: no edema Lab Results Anesthesia Preop Results Results Anesthesia Widget: WBC 4.43 K/ul (4.8-10.8) L 01/14/23 Hgb 14.5 g/dl (12.0-16.0) 01/14/23 Hct 43.9 % (37.0-47.0) 01/14/23 Plt 164 K/uL (130-400) 01/14/23 Na 140 mmol/L (136-145) 01/14/23 K 4.8 mmol/L (3.5-5.1) 01/14/23 Cl 105 mmol/L (98-107) 01/14/23 CO2 30 mmol/L (21-32) 01/14/23 BUN 23 mg/dl (6-23) 01/14/23 Creat 1.18 mg/dl (0.6-1.2) 01/14/23 Glucose Level 112 mg/dl (70-99(Fasting)) H 01/14/23 PT 10.9 Seconds (9.0-12.0) 01/14/23 PTT 26.3 Seconds (21.0-31.0) 01/14/23 INR 1.0 (0.9-1.1) 01/14/23 HA1c 5.9 % (4.5-5.6) H 01/14/23 Blood Type O Positive 01/14/23 Antibody Screen NEGATIVE 01/14/23 Testing Electrocardiogram Date: 09/11/22 NSR at 71bpm. iRBBB. Chest X-Ray Date: 09/11/22 FINDINGS: Right subclavian Mvondb-f-Yxhz is in place. Lung volumes are normal. Lungs are clear. There is no pneumothorax or pleural effusion. Cardiac size is normal. Mediastinal contours are normal. There is no evidence for pulmonary edema. Surgical clips project over the breasts/lower chest wall. IMPRESSION: No acute cardiopulmonary findings. Echocardiogram Date: 01/18/19 EF 65-70%. Mild cLVH. Hyperdynamic LV. Grade II DD. LV wall motion normal. COVID-19 Risk Screen Screening Information COVID-19 Screen Date: 01/14/23 Exposure 21 Days Family/Household +COVID Last 21 Days: No Exposure 10 Days Any COVID Exposure Last 10 Days: No Symptoms Last 10 Days Experienced COVID Sx Last 10 Days: No + COVID 0-90 Days COVID + in Last 0-90 Days: No
--- NOTE | 2023-02-05 06:27 | History & Physical Report ---
Date of Service February 05, 2023 Assessment & Plan (1) Osteoarthritis of left knee: We will proceed with a left total knee arthroplasty. Postoperatively she will be started on aspirin for DVT prophylaxis and kept overnight for postop medical management. She plans to use energy physical therapy upon discharge. History of Present Illness Chief Complaint: Osteoarthritis of the left knee. Primary Care Provider: Moustapha Dey MD Sandy is a pleasant 72-year-old female who has been dealing with chronic increasing bilateral knee pain, left worse than right. X-rays have shown advanced arthritis of her left knee. She has tried injections of her knee in the past, which have not helped much. She has done some therapy. She has done activity modifications and is taking the anti-inflammatories. Unfortunately, she is still really struggling with her left knee. After failing extensive conservative treatment, she has elected to proceed with a left total knee arthroplasty. Allergies Allergy/AdvReac Type Severity Reaction Status Date / Time ciprofloxacin AdvReac Intermediate ALTERED Verified 02/01/23 13:19 MENTAL STATE, AGITATED Home Medications Medication Instructions Recorded Confirmed Type bupropion HCl 300 mg 24 hr tablet, 300 mg PO QAM 09/14/18 02/01/23 History extended release duloxetine 60 mg capsule,delayed 60 mg PO BID 09/14/18 02/01/23 History release levomefolate 15 mg-algal oil 15 mg PO QAM 09/14/18 02/01/23 History 90.314 mg capsule (Deplin (algal oil)) zrzjvtsf-gky-jjjnl acid 0.4 1 tab PO HS 09/14/18 02/01/23 History mg-lycopene 300 mcg-lutein 250 mcg tablet (Centrum Silver) trazodone 50 mg tablet 75 mg PO HS 09/14/18 02/01/23 History buspirone 10 mg tablet 20 mg PO TID 09/15/19 02/01/23 History OneTouch Delica Lancets 33 gauge #100 ea 10/27/19 02/01/23 Rx (lancets) vit A 300 mcg-C 200 mg-E 27 1 tab PO BID 04/10/21 02/01/23 History mg-lutein 2 mg and minerals tablet (Ocuvite with Lutein) clonazepam 1 mg tablet 0.5 mg PO PM 09/25/21 02/01/23 History prochlorperazine maleate 10 mg 10 mg PO Q8H PRN nausea and 09/25/21 02/01/23 Rx tablet vomiting #30 tabs quetiapine 25 mg tablet 25 mg PO BID #60 tabs 09/25/21 02/01/23 Rx medical marijuana 1 dose inhalation HS 10/30/21 02/01/23 History oxycodone 5 mg capsule 20 mg PO BID PRN Pain 10/30/21 02/01/23 History FreeStyle Kathia 14 Day Sensor #6 ea 11/24/21 02/01/23 Rx (flash glucose sensor) liothyronine 5 mcg tablet 5 mcg PO QAM #90 tabs 01/01/22 02/01/23 Rx propranolol 10 mg tablet 10 mg PO QAM 01/01/22 02/01/23 History BD Ultra-Fine Mary Pen Needle 32 #500 ea 02/23/22 02/01/23 Rx gauge x 5/32" (pen needle, diabetic) atorvastatin 10 mg tablet See Rx Instructions .Route 04/28/22 02/01/23 Rx .COMPLEX #90 tabs blood-glucose meter (OneTouch #3 ea 04/29/22 02/01/23 Rx Verio Reflect Meter) insulin aspart U-100 100 unit/mL 100 unit subcut DAILY 90 days #90 05/02/22 02/01/23 Rx (3 mL) subcutaneous pen (Novolog mL FlexPen U-100 Insulin aspart) OneTouch Verio test strips (blood #400 ea 07/02/22 02/01/23 Rx sugar diagnostic) diclofenac sodium 1 % topical gel 2 g topical QID #200 grams 07/31/22 02/01/23 Rx (Voltaren Arthritis Pain) anastrozole 1 mg tablet 1 mg PO QAM 08/04/22 02/01/23 History aripiprazole 2 mg tablet 2 mg PO QAM 08/04/22 02/01/23 History omeprazole 40 mg capsule,delayed See Rx Instructions .Route 08/24/22 02/01/23 Rx release .COMPLEX #60 caps meclizine 25 mg tablet 25 mg PO BID PRN dizziness #30 tabs 09/11/22 02/01/23 Rx clotrimazole 10 mg michelle 10 mg mucous membrane 5XD #150 tabs 09/25/22 02/01/23 Rx insulin glargine 100 unit/mL (3 40 unit (0.4 mL) subcut QPM #15 mL 09/28/22 02/01/23 Rx mL) subcutaneous pen (Lantus Solostar U-100 Insulin) gabapentin 600 mg tablet 600 mg PO TID #90 tabs 11/23/22 02/01/23 Rx semaglutide 1 mg/dose (4 mg/3 mL) 1 mg (0.75 mL) subcut Q7D #3 mL 11/24/22 02/01/23 Rx subcutaneous pen injector (Ozempic) linaclotide 290 mcg capsule See Rx Instructions .Route 01/01/23 02/01/23 Rx (Linzess) .COMPLEX #30 caps meloxicam 15 mg tablet 15 mg PO QAM #30 tabs 01/04/23 02/01/23 Rx glucagon 3 mg/actuation nasal 3 mg intranasal ONCE PRN 02/01/23 History spray (Baqsimi) levothyroxine 100 mcg tablet 100 mcg PO DAILY #30 tabs 02/02/23 02/02/23 Rx Past Med/Surg History Medical History Anemia Barretts esophagus Depression with anxiety Diabetes type 2, controlled Fatty liver Gastroparesis History of anal cancer Dx approximately 12 years ago, hx radiation History of breast cancer Dx 2018. Left breast. s/p B/L mastectomy Denies limb restriction History of kidney stones History of uterine cancer Dx 3 years ago. S/P sx + chemo Hyperlipidemia Hypothyroidism Insomnia Iron deficiency hx iron infusions Lumbosacral radiculopathy Obesity (BMI 30-39.9) Peripheral neuropathy Port-A-Cath in place RCW- power port Radiation colitis Renal mass, left S/P Left partial nephrectomy (2014) Sleep apnea CPAP (non-compliant) Surgical History H/O bilateral salpingo-oophorectomy H/O partial nephrectomy LEFT SIDE D/T TUMOR History of arthroscopy RIGHT KNEE History of bilateral mastectomy denies limb restriction History of colonoscopy History of conization of cervix History of cystoscopy STONE EXTRACTION History of dilatation and curettage History of esophagogastroduodenoscopy (EGD) History of flexible sigmoidoscopy History of hysterectomy History of lithotripsy History of surgery [facility] INSERTION 11/2018 [facility] History of tooth extraction Family History Brother Family history of diabetes mellitus Kidney stones Sinusitis Multiple allergies No family history of bleeding disorder Allergies Mother Coronary heart disease Dementia Cardiac disorder Hypertension Uterus cancer Hearing loss Father Asthma Hypertension Liver cancer Pancreatic cancer Hearing loss No family history of bleeding disorder Other Cancer No family history of adverse response to anesthesia Denies family history of Ovarian cancer Prostate cancer Breast cancer Colorectal cancer Social History Smoking Status: Former smoker Tobacco Type: Cigarettes Cigarettes Per Day: Quit 50 yrs ago; Second Hand Exposure: No; Do You Dip or Chew Tobacco: No; Tobacco Cessation Education Requested by Patient: No Hx Alcohol Use: No Hx Substance Use: Yes (smokes daily @ HS - advised) Prescribed Medications: Marijuana and Opiates Last Used Substance: Days (ago) Substance Use Type Other:: medical marijuana Preferred Language: Djiboutian Communication Ability: Effective Visual Impairment: No Limitations Hearing Ability: Normal Warehouse Operator Required: No Beliefs That Will Affect Care: None marital status: Current Living Situation: Spouse current occupational status: retired Other Information That Helps Us Care for You: No Feels Safe at Home: Yes Safety Concerns: Feels Safe At This Time Seatbelt Use: always Assistive Devices: Cane, CPAP and Glasses Review of Systems All systems reviewed & are unremarkable except as noted in HPI & below. Physical Exam On physical examination of the left knee, she has a slight varus deformity. She has range of motion of 0 to 120 degrees. She has no instability. She has pain of the distal medial femoral condyle and over the medial joint line.. Constitutional WD/WN, vitals as above Eyes PERRL, conjunctivae normal, anicteric sclerae ENMT external ear and nose normal, oropharynx normal Neck trachea midline, no thyromegaly Respiratory normal respiratory effort, lungs clear to auscultation Cardiovascular RRR, no murmur, no edema Gastrointestinal (Abdomen) normal bowel sounds, soft, nontender, no hepatosplenomegaly Skin no rashes, warm and dry Psychiatric A+Ox3, euthymic affect Results & Data Results & Data Laboratory Results . Diagnostic Findings X-rays of the left knee show advanced osteoarthritis with joint space narrowing osteophyte formation and gyjo-fj-viqq articulation.. PG Care Time/CCT Total # of Minutes Spent Total Time Spent with Patient: Total time spent is greater than 50% in coordination of care (as documented) at patient's floor/unit and/or counseling patient: Coding Level of Care Code None Diagnoses Osteoarthritis of left knee M17.12
[~2023-02-05 08:00] MED LIST changes: +ACETAMINOPHEN 500 MG TAB PO SCH; -ARIP1TAB14 PO; -BUPRTAB51 PO; -BUSP30TA2 PO; -CLON1TAB10 PO; -DOCU100C31 PO; -DULO60CA44 PO; +FAMOTIDINE 20 MG TAB PO SCH; +GABAPENTIN 300 MG CAP PO SCH; -INSDGIPEN SC; -KLN1X PO; -L-ME1CAP PO; -LEVO112T4 PO; -LIOT5TAB9 PO; -LPT10 PO; +LR 500ML BOLUS, THEN 15ML/HR IV SCH; +LR 60ML/HR IV SCH; -MECL1TAB42 PO; -MELO-84 PO; -MULT-190 PO; -MULT-845 PO; -NVLGI/PEN SQ; -OMEP20CA9 PO; +ORTHO JOINT MIX INFIL SCH; -OXYC7.5T65 PO; -PRED20TA PO; +ROPIVACAINE 0.5% 5 MG/ML 30 ML VIAL ONE; +TRANEXAMIC ACID 1,000 MG **IV Intra-op IV SCH; +TRANEXAMIC ACID 1,000 MG **IV Pre-op IV SCH; -TRAZ50TA35 PO; +ceFAZolin 2000MG 2,000 MG/15 ML SYR IV SCH; +dexAMETHasone 4 MG TAB PO SCH
[2023-02-05] MEDS ORDERED: PROPOFOL IV EMULSION 10 MG/ML 20 ML VIAL IV ONE ×3 (08:25→10:46)
[2023-02-05] MEDS ORDERED: MIDAZOLAM HCL 1 MG/ML 2ML VIAL ONE (08:25)
[2023-02-05] MEDS ORDERED: fentaNYL citrate PF 100 MCG/2 ML VIAL ONE (08:25)
[2023-02-05] MEDS ORDERED: ORTHO JOINT ANESTHETIC ONE (09:53)
[2023-02-05] MEDS ORDERED: ONDANSETRON INJ 2 MG/ML 2 ML VIAL IV PRN ×2 (10:21→14:02)
[2023-02-05] MEDS ORDERED: ePHEDrine sulfate 50 MG/ML AMP IV PRN (10:21)
[2023-02-05] MEDS ORDERED: ATROPINE SULFATE 0.1 MG/ML 10ML SYR IV PRN (10:21)
[2023-02-05] MEDS ORDERED: fentaNYL citrate PF 100 MCG/2 ML VIAL IV PRN (10:21)
--- NOTE | 2023-02-05 12:06 | Operative Report ---
PG Post Operative Report Pre & Post Diagnosis Operation Date: 02/05/23 10:30 Pre-Op Diagnosis: Degenerative Joint Disease Left Knee Post-Op Diagnosis: Degenerative Joint Disease Left Knee I identified the patient and participated in the time-out.: Yes Procedure Operation Date: 02/05/23 10:30 Actual Procedures p Left Total Knee Arthroplasty(Left) - Keny French DO Surgeon Keny French DO Operation Agent Toño Mcdaniel PA-C Estimated Blood Loss 30 Findings Consistent with Post-Op Diagnosis Specimens Left femoral and tibial bone Description of Procedure Implants used: I used a Jeet Persona total knee arthroplasty system with a size 10 narrow femur, E tibia, 31 oval patella, and a size 11 medial congruent polyethylene bearing. All components were cemented in place with Biomet cement. Sandy arrived [facility] for the above procedure. She was seen in the preoperative holding area and the operative extremity was identified and signed. She was given a preoperative antibiotic, TXA, a spinal anesthetic and an adductor nerve block. She was taken back to the operating room and laid on the table in supine position. She was given basic sedation. The operative knee was then prepped and draped in sterile fashion. A timeout was done, and the patient and the operative extremity was properly identified. A midline incision was made directly over the patella. Dissection was taken down to the extensor mechanism. A midvastus arthrotomy was used. The medial retinaculum was released and the fat pad was mostly excised. The knee was flexed and the ACL, PCL, and meniscus were removed. A drill was sent down the center of the femoral canal followed by an intramedullary isha. Off that isha a distal femoral cutting block was placed. 9 mm was resected off the distal femur at 5 of valgus. A posterior referencing AP sizing guide was then placed on the distal femur. The femur measured to be a size 10. 2 drill holes were placed in 3 of external rotation. A 4-in-1 cutting block was then impacted into place. Anterior, posterior, and chamfer cuts were then made. The proximal tibia was then exposed. An external tibial alignment guide was placed. A tibial cut guide was then anchored in place and the proximal tibia was then resected. The posterior aspect of the knee was then opened up and any additional meniscus fragments and osteophytes were removed. The tibia measured to be a size E. The tibial plate was then placed in the appropriate rotation and the tibia was drilled and punched. Trial components were then placed. I used a size 11 medial congruent polyethylene insert. The knee was brought through a full range of motion and felt to be stable. The peg holes for the femoral component were then drilled. The patella was then everted and 9 mm was resected off the posterior aspect of the patella. The patella measured to be a size 31 oval. 3 peg holes were then drilled. A trial patella was placed. The knee was once again brought through a full range of motion and felt to be stable. Trial components were then removed. The surrounding soft tissues were injected with 100 cc of an orthopedic pain control cocktail. All components were then cemented into place with Biomet cement. The final polyethylene insert was then snapped into place. Once cement was dry the tourniquet was deflated. Hemostasis was obtained. A dilute betadyne lavage was then done for 3 minutes. The joint was then irrigated with normal saline solution. The midvastus arthrot nicolette was then closed with #1 Vicryl suture. The skin was closed with 2-0 Vicryl, 3-0V lock suture, and ludy. A soft compressive dressing was placed. She was then transferred to a hospital bed and taken to the postanesthesia care unit in stable condition. She tolerated the procedure well. Toño Mcdaniel PA-C, was present for the entire procedure. He was critical for patient positioning, prepping, draping, retraction exposure, wound closure and application of sterile dressing. I attest to the content of the Intraoperative Record and any orders documented therein. Any exceptions are noted below.
--- NOTE | 2023-02-05 13:34 | XRay Report ---
LEFT KNEE 2 VIEWS History: Left total knee arthroplasty. Degenerative arthritis. Postop. FINDINGS: The patient is status post a left total knee arthroplasty. The hardware is intact. No fract ure or dislocation. Skin ludy are in place. IMPRESSION: Left total knee arthroplasty. No evidence for hardware complication. ACT 112: Negative or not required by law. Electronically signed by: Marcello Antoine M.D. 02/05/2023 1:33 PM
--- NOTE | 2023-02-05 13:42 | Anesthesiology Progress Note ---
Date of Service February 05, 2023 Anesthesia Post Procedure Vital Signs Vital Signs: Temp Pulse Pulse Resp BP BP Pulse Ox 02/05/23 13:30 36.3 C L 74 14 122/71 98 02/05/23 13:15 36.3 C L 75 18 122/75 97 02/05/23 13:00 36.3 C L 73 16 107/75 97 02/05/23 12:54 78 15 108/72 97 02/05/23 12:45 36.2 C L 72 18 101/74 97 02/05/23 12:34 36.2 C L 79 18 101/71 97 02/05/23 08:39 36.8 C 84 20 109/64 95 02/05/23 08:34 O2 Del Method O2 Flow Rate 02/05/23 13:30 Nasal Cannula 3 02/05/23 13:15 Nasal Cannula 3 02/05/23 13:00 Nasal Cannula 3 02/05/23 12:54 Nasal Cannula 3 02/05/23 12:45 Oxymask 8 02/05/23 12:34 Oxymask 8 02/05/23 08:39 Room Air 02/05/23 08:34 Room Air Transfer of Care Handoff Completed per policy Notes Mental Status: alert / awake / arousable Patient Amnestic to Procedure: Yes Nausea / Vomiting: adequately controlled Pain: adequately controlled Airway Patency, RR, SpO2: stable & adequate BP & HR: stable & adequate Hydration State: stable & adequate Anesthetic Complications: no major complications apparent
[2023-02-05] MEDS ORDERED: bisacodyL 10 MG SUPP PR PRN (14:02)
[2023-02-05] MEDS ORDERED: MAGNESIUM HYDROXIDE SUSP 30 ML UDC PO PRN (14:02)
[2023-02-05] MEDS ORDERED: MECLIZINE HCL 25 MG TAB PO PRN (14:02)
[2023-02-05] MEDS ORDERED: METOCLOPRAMIDE HCL INJ 5 MG/ML 2 ML VIAL IV PRN (14:02)
[2023-02-05] MEDS ORDERED: NALOXONE HCL 0.4 MG/1 ML VIAL/CARP IV PRN (14:02)
[2023-02-05] MEDS ORDERED: oxyCODONE HCL IR 5 MG TAB (IMMEDIATE RELEASE) PO PRN (14:02)
[2023-02-05] MEDS ORDERED: PHARMACY GLYCEMIC MGMT CONSULT PRN (14:02)
[2023-02-05] MEDS: SODIUM CHLORIDE 0.9% 1000ML 1,000 ML IV SCH (14:24)
[2023-02-05] MEDS ORDERED: GLUCOSE 10 TAB/TUBE PO PRN (15:30)
[2023-02-05] MEDS ORDERED: GLUCAGON FOR INJ 1 MG VIAL IM PRN (15:30)
[2023-02-05] MEDS ORDERED: CARBOHYDRATES FOR HYPOGLYCEMIA PO PRN (15:30)
[2023-02-05] MEDS ORDERED: DEXTROSE 50% 50 ML SYRINGE IV PRN (15:30)
[2023-02-05] MEDS ORDERED: GLUCOSE 40% GEL 15 GM TUBE PO PRN (15:30)
[2023-02-05] MEDS: busPIRone 5 MG TAB PO SCH ×2 (16:33→21:24)
[2023-02-05] MEDS: busPIRone 15 MG TAB PO SCH ×2 (16:33→21:24)
[2023-02-05] MEDS: GABAPENTIN 600 MG TAB PO SCH ×2 (16:35→21:25)
[2023-02-05] MEDS: HYDROmorphone INJ 1 MG/ML SYRINGE IV PRN (17:25)
[2023-02-05] MEDS: INSULIN ASPART PER UNIT CHARGE SC SCH ×2 (18:06→21:40)
[2023-02-05] MEDS: ceFAZolin 2000MG 2,000 MG/15 ML SYR IV SCH (18:12)
[2023-02-05] MEDS: oxyCODONE HCL IR 5 MG TAB (IMMEDIATE RELEASE) PO PRN ×2 (19:10→23:00)
[2023-02-05] MEDS ORDERED: NON-FORMULARY MEDICATION (Vit A,C And E-Lutein-Minerals [Ocuvite With Lutein] 1,000 unit-2 PO SCH (21:00)
[2023-02-05] MEDS ORDERED: traZODone HCL 50 MG TAB PO SCH (21:00)
[2023-02-05] MEDS ORDERED: CEROVITE ADV FORMULA TAB PO SCH (21:00)
[2023-02-05] MEDS ORDERED: LANTUS PER UNIT CHARGE SQ SCH (21:00)
[2023-02-05] MEDS ORDERED: SENNA 8.6 MG TAB PO SCH (21:00)
[2023-02-05] MEDS ORDERED: clonazePAM 0.5 MG TAB PO SCH (21:00)
[2023-02-05] MEDS: ASPIRIN 81 MG ECTAB PO SCH (21:24)
[2023-02-05] MEDS: DOCUSATE SODIUM 100 MG CAP PO SCH (21:25)
[2023-02-05] MEDS: DULoxetine HCL 60 MG CAP PO SCH (21:25)
[2023-02-05] MEDS: QUEtiapine FUMARATE 25 MG TABLET PO SCH (21:25)
[2023-02-06] MEDS: HYDROmorphone INJ 1 MG/ML SYRINGE IV PRN (01:15)
[2023-02-06] MEDS: SODIUM CHLORIDE 0.9% 1000ML 1,000 ML IV SCH (01:26)
[2023-02-06] MEDS: ceFAZolin 2000MG 2,000 MG/15 ML SYR IV SCH (03:02)
[2023-02-06] MEDS: oxyCODONE HCL IR 5 MG TAB (IMMEDIATE RELEASE) PO PRN ×2 (03:02→06:56)
--- NOTE | 2023-02-06 06:58 | Orthopedic Progress Note ---
Date of Service February 06, 2023 Assessment & Plan (1) Status post left knee replacement: Overall she is doing well. She is not having much pain in the left knee. She will be seen by physical therapy today for ambulation and range of motion exercises. She is on aspirin for DVT prophylaxis. She is already on oxycodone 10 mg about 4 times a day from her cancer [place]. We discussed pain management at length. I decided to give her another prescription for oxycodone 10 mg #30 for breakthrough pain over the next 2 weeks. She is already on Mobic. She can be discharged home later today. She will follow-up with orthopedics in 2 weeks. Niels Delgado was seen and examined at bedside this morning. Overall she is doing fairly well. She is not having too much pain in the knee. She has been up and ambulating to the bathroom. She has no complaints.. Review of Systems All systems reviewed & are unremarkable except as noted in HPI & below. Physical Exam On physical examination of the left knee, the dressing is clean and dry. Her leg is out full extension. She has active dorsiflexion plantarflexion of her left ankle.. Results & Data Results & Data Laboratory Results . Diagnostic Findings Postoperative x-rays of the left knee show the prosthesis to be in anatomic alignment without any evidence of fracture, desiccation, or loosening. PG Care Time/CCT Total # of Minutes Spent Total Time Spent with Patient: Total time spent is greater than 50% in coordination of care (as documented) at patient's floor/unit and/or counseling patient: Coding Level of Care Code 50066 Post Operative Follow-Up Diagnoses Status post left knee replacement Z96.652
--- NOTE | 2023-02-06 06:59 | Discharge Summary ---
Date of Service February 06, 2023 Admission HPI (Per Admitting) Sandy is a pleasant 72-year-old female who has been dealing with chronic increasing bilateral knee pain, left worse than right. X-rays have shown advanced arthritis of her left knee. She has tried injections of her knee in the past, which have not helped much. She has done some therapy. She has done activity modifications and is taking the anti-inflammatories. Unfortunately, she is still really struggling with her left knee. After failing extensive conservative treatment, she has elected to proceed with a left total knee arthroplasty. Admission Exam (Per Admitting) On physical examination of the left knee, she has a slight varus deformity. She has range of motion of 0 to 120 degrees. She has no instability. She has pain of the distal medial femoral condyle and over the medial joint line.. Principal Diagnosis Same as "Discharge Diagnosis" noted below under Discharge Instructions. Discharge Exam On physical examination of the left knee, the dressing is clean and dry. Her leg is out full extension. She has active dorsiflexion plantarflexion of her left ankle.. Discharge Data Procedures Performed Operation Date: 02/05/23 10:30 Actual Procedures p Left Total Knee Arthroplasty(Left) - Keny French DO Ordered Studies 02/05/23 05:00 US - OR guided needle placemen Routine Hospital Course (1) Status post left knee replacement: On February 05, 2023 Arlin arrived at [facility] and underwent a left knee replacement without complication. She had a spinal anesthetic. Postoperatively she was started on aspirin for DVT prophylaxis and transferred to the general orthopedic floors. Her hospital course was uneventful. On postop day #1, her vital signs were stable and her pain was well controlled. She was able to participate well with physical therapy doing ambulation and range of motion exercises. She was then discharged home. She will follow-up with orthopedics in 2 weeks. PG Care Time/CCT Total # of Minutes Spent Total Time Spent with Patient: Total time spent is greater than 50% in coordination of care (as documented) at patient's floor/unit and/or counseling patient: Discharge Plan Discharge Items Patient Disposition: Home - Home Health Services Reason For Visit: DJD Left Knee Discharge Diagnosis: Left knee replacement Activity: Per Instructions section Non-emergency contact: Surgeon Call non-emergency contact if: your wound has increased redness and your wound has increased drainage Follow-up/Referrals: Moustapha Dey MD [Primary Care Provider] - Diet: Regular Addtl Attending Provider Instructions: Activity and Therapy Recommendations: * If you are using [facility] then therapy will be provided at your home until they feel you have accomplished all of your goals. * If you are using [facility] then Physical Therapy will be provided until they feel you are ready to start Outpatient Physical Therapy. * If you are not using home therapy then Outpatient Physical Therapy should start about 3-5 days from your day of surgery. Therapy will last about 6-10 weeks * It is important not to put a pillow under your knee when you are relaxing or sleeping. It is just as important to make sure you are getting your knee perfectly straight as it is to regain your knee bend. * You were shown a series of exercises in the hospital. Do these exercises three times each day including the exercises you were shown in physical therapy. * Get up and walk several times each day. For the first four weeks, try not to stand or walk for more than one hour at a time. If you do stand or walk for more than one hour, you will not hurt anything, but your leg will likely swell. * As you feel comfortable, you may change from the walker or crutches to a cane and then to independent walking. Medications: * Narcotic You will likely be sent home from the hospital with a prescription for the narcotic pain medication that worked best throughout your stay. * Aspirin Most patients will be required to take Aspirin 81mg twice a day for 6 weeks after surgery. This is obtained [id number] and a prescription is not necessary. * Other medications may be prescribed for specific circumstances. If you have any questions, please call the office at . * Resume previous home medications unless otherwise instructed TEDs/Elastic Stockings: The white elastic stockings help limit swelling and prevent blood clots from forming in your legs.~ The more you wear them, the more they work. Wear them for six weeks. Dressing Care: The dressing can be changed after physical therapy on postop day #1. Daily dry dressing changes for a few days, especially if the incision is still draining some. If the incision is not draining then you may leave the ludy open to air. If there is a little bit of drainage or if the ludy are getting stuck on your clothing then cover the incision with a dry dressing. The ludy will be removed at your 2 week follow-up appointment. Showering: You may shower 5 days from the day of surgery as long as the incision is no longer draining. You may shower with the ludy exposed. Let soapy water run over the ludy and pat them dry. Do not scrub or soak the incision. Things To Watch For: * Drainage from the incision site that occurs more than one week after your surgery. * Increased redness at the incision site. * Fever above 102 degrees Fahrenheit. * Unusual chest pain or shortness of breath. * Call [facility] at with any of the above problems Follow-Up Visit: Follow-up with Dr. French's PA (Keny King) 2-3 weeks after your day of surgery. He will remove your ludy and answer any questions. If you have any additional questions or concerns, Dr French is usually in the office at the same time and will be available An appointment was probably scheduled when you signed-up for surgery in the office. If you have any questions call Office Instructions: More detailed instructions as well as Frequently Asked Questions were provided in a folder by our office when you signed-up for surgery. Please review these instructions when you get home. If you have any further questions or concerns, please feel free to call the office at [phone] Pending Studies at Discharge: No Stand-Alone Forms: My [facility] [employer], Smoking Cessation Medications and DC Order Prescriptions: New aspirin [Adult Aspirin Regimen] 81 mg tablet,delayed release (DR/EC) 81 mg PO BID Qty: 84 0RF oxycodone 10 mg tablet 10 mg PO Q6H PRN (Reason: pain) Qty: 30 0RF Continued medical marijuana 1 dose inhalation HS (DME) FreeStyle Kathia 14 Day Sensor Kit See Rx Instructions .Route Qty: 6 3RF Rx Instructions: Change sensor every 14 days liothyronine 5 mcg tablet 5 mcg PO QAM Qty: 90 3RF (DME) pen needle, diabetic [BD Ultra-Fine Mary Pen Needle] 32 gauge x 5/32" needle See Rx Instructions .ROUTE .MEDSUPPLY Qty: 500 3RF Rx Instructions: Use 5 needles daily atorvastatin 10 mg tablet See Rx Instructions .ROUTE .COMPLEX Qty: 90 3RF Dose Instruction: TAKE 1 TABLET BY MOUTH EVERY MORNING Rx Instructions: TAKE 1 TABLET BY MOUTH EVERY MORNING insulin aspart U-100 [Novolog FlexPen U-100 Insulin] 100 unit/mL (3 mL) insulin pen 100 unit subcut DAILY 90 Days Qty: 90 3RF Rx Instructions: Inject per sliding scale with meals up to 100 units a day (DME) OneTouch Verio test strips Strip See Rx Instructions .Route Qty: 400 3RF Rx Instructions: Test blood sugars 4 times a day omeprazole 40 mg capsule,delayed release(DR/EC) See Rx Instructions .ROUTE .COMPLEX Qty: 60 11RF Dose Instruction: TAKE 1 CAPSULE BY MOUTH TWO TIMES DAILY Rx Instructions: TAKE 1 CAPSULE BY MOUTH TWO TIMES DAILY insulin glargine [Lantus Solostar U-100 Insulin] 100 unit/mL (3 mL) insulin pen 40 unit subcut QPM Qty: 15 2RF gabapentin 600 mg tablet 600 mg PO TID Qty: 90 3RF Linzess 290 mcg capsule See Rx Instructions .ROUTE .COMPLEX Qty: 30 5RF Hold Instructions: diarrhea Dose Instruction: TAKE 1 CAPSULE BY MOUTH EVERY MORNING Rx Instructions: TAKE 1 CAPSULE BY MOUTH EVERY MORNING meloxicam 15 mg tablet 15 mg PO QAM Qty: 30 3RF Ozempic 1 mg/dose (4 mg/3 mL) pen injector 1 mg subcut Q7D Qty: 3 5RF diclofenac sodium [Voltaren Arthritis Pain] 1 % gel 2 g topical QID Qty: 200 2RF Rx Instructions: Apply 4 g to knees and 2 g to hands. anastrozole 1 mg tablet 1 mg PO QAM aripiprazole 2 mg tablet 2 mg PO QAM oxycodone 5 mg capsule 20 mg PO BID PRN (Reason: Pain) Baqsimi 3 mg/actuation spray,non-aerosol 3 mg intranasal ONCE PRN (Reason: Hypoglycemia) (DME) lancets [OneTouch Delica Lancets] 33 gauge misc See Rx Instructions .ROUTE .MEDSUPPLY Qty: 100 3RF Rx Instructions: use 1 daily quetiapine 25 mg tablet 25 mg PO BID Qty: 60 2RF prochlorperazine maleate 10 mg tablet 10 mg PO Q8H PRN (Reason: nausea and vomiting) Qty: 30 0RF propranolol 10 mg tablet 10 mg PO QAM (DME) blood-glucose meter [Yotta280uch Verio Reflect Meter] Misc See Rx Instructions .Route Qty: 3 5RF Rx Instructions: Test blood sugars 4 times a day levothyroxine 100 mcg tablet 100 mcg PO DAILY Qty: 30 2RF trazodone 50 mg tablet 75 mg PO HS bupropion HCl 300 mg tablet extended release 24 hr 300 mg PO QAM duloxetine 60 mg capsule,delayed release(DR/EC) 60 mg PO BID Centrum Silver 0.4-300-250 mg-mcg-mcg Tablet 1 tab PO HS levomefolate-algal oil [Deplin (algal oil)] 15-90.314 mg Capsule 15 mg PO QAM clonazepam 1 mg tablet 0.5 mg PO PM buspirone 10 mg tablet 20 mg PO TID Ocuvite with Lutein 1,000 unit-200 mg-60 unit-2 mg tablet 1 tab PO BID meclizine 25 mg tablet 25 mg PO BID PRN (Reason: dizziness) Qty: 30 0RF Admission Data Admit Date/Time: 02/05/23 12:41 Attending Provider: Keny French Admit Provider: Keny French Primary Care Provider: Moustapha Dey
[2023-02-06] MEDS ORDERED: dexAMETHasone 4 MG TAB PO SCH (08:00)
[2023-02-06] MEDS: INSULIN ASPART PER UNIT CHARGE SC SCH (08:53)
[2023-02-06] MEDS: DOCUSATE SODIUM 100 MG CAP PO SCH (08:59)
[2023-02-06] MEDS ORDERED: LEVOTHYROXINE SODIUM 100 MCG TABLET PO SCH (09:00)
[2023-02-06] MEDS ORDERED: MULTIVITAMIN TAB PO SCH (09:00)
[2023-02-06] MEDS ORDERED: ATORVASTATIN 10 MG TAB PO SCH (09:00)
[2023-02-06] MEDS ORDERED: LIOTHYRONINE SODIUM 5 MCG TAB PO SCH (09:00)
[2023-02-06] MEDS: busPIRone 15 MG TAB PO SCH (09:00)
[2023-02-06] MEDS ORDERED: ARIPIprazole 1 MG/ML ORAL SOLN 150 ML BTL PO SCH (09:00)
[2023-02-06] MEDS ORDERED: ANASTROZOLE 1 MG TAB PO SCH (09:00)
[2023-02-06] MEDS: GABAPENTIN 600 MG TAB PO SCH (09:00)
[2023-02-06] MEDS ORDERED: buPROPion XL 300 MG TABCR PO SCH (09:00)
[2023-02-06] MEDS ORDERED: PROPRANOLOL HCL 10 MG TAB PO SCH (09:00)
[2023-02-06] MEDS: ASPIRIN 81 MG ECTAB PO SCH (09:01)
[2023-02-06] MEDS: busPIRone 5 MG TAB PO SCH (09:02)
[2023-02-06] MEDS: QUEtiapine FUMARATE 25 MG TABLET PO SCH (09:02)
[2023-02-06] MEDS: DULoxetine HCL 60 MG CAP PO SCH (09:02)
== END 2023-02-06 11:14 | disposition home health service (06) ==
LOC: ASU 08:00 → 3E 08:00